=== PATIENT | female | born 1940 | race Caucasian/White ===

== ENCOUNTER → 2017-03-05 09:20 | Outpatient (CLI) | payer MEDICARE, SELFPAY ==
[2017-03-05 15:11] VITALS: BP 135/66; PULSE 64; RESP 16; TEMP 36.1; O2SAT 98; BMI 25.9
--- NOTE | 2017-03-05 15:17 | SDCEKG_ITS ---
Test Reason : Blood Pressure : / mmHG Vent. Rate : 061 BPM Atrial Rate : 061 BPM P-R Int : 202 ms QRS Dur : 096 ms QT Int : 406 ms P-R-T Axes : 040 013 034 degrees QTc Int : 408 ms Normal sinus rhythm with sinus arrhythmia Normal ECG Confirmed by SIDNEY AVALOS, KRIS ([id number]), editorial specialist CAITLIN ZAMBRANO ([id number] on 03/11/2017 3:39:45 PM Referred By: LONNIE Confirmed By:KRIS LITTLE MD
[2017-03-05 15:41] LABS: Hematocrit 37.9 % (37-47); Hemoglobin 12.3 g/dl (12.0-15.0); Mean Corp Hgb Conc 32.5 g/gl (32-36); Mean Corpuscular Hgb 29.7 pg (27.0-32.0); Mean Corpuscular Volume 91.5 fL (81-99); Mean Platelet Vol. 10.6 fl (6.2-12.0); Platelet Count 213 K/mm3 (150-450); RBC Distribution Width CV 14.1 % (11.6-14.6); RBC Distribution Width SD 46.9 fl (35.1-43.9); Red Blood Count 4.14 M/mm3 (4.2-5.4)
[2017-03-05 15:47] LABS: Scan Indicated on CBC? Y/N NO
[2017-03-05 16:13] LABS: International Normalized Ratio 0.9
[2017-03-05 16:14] LABS: Partial Thromboplast Time 27.1 Seconds (24.1-36.2)
[2017-03-05 16:33] LABS: AST(SGOT) 21 U/L (15-37); Alanine Aminotransfer ALT/SGPT 24 U/L (12-78); Albumin, Serum 3.9 g/dL (3.4-5.0); Alkaline Phosphatase 58 U/L (45-117); Anion Gap 6 (5-15); BUN 21 mg/dL (7-18); BUN/Creat Ratio 17.5 RATIO (10-20); Bilirubin, Direct 0.09 mg/dL (0.00-0.30); Calcium,Total 9.1 mg/dL (8.5-10.1); Chloride 102 mmol/L (98-107); EST Glomerular Filtration Rate 46 mL/min (>60); Est Glom Filt Rate - Afr Amer 56 mL/min (>60); Estimated Creatinine Clearance 34.44 ml/min; Globulin 3.6 g/dL (2.2-4.2); Glucose 89 mg/dL (70-110); Potassium 3.9 mmol/L (3.5-5.1); Protein, Total 7.5 g/dL (6.4-8.2); Sodium Level 137 mmol/L (136-145); Thyroid Stim Hormone (TSH) 1.27 uIU/mL (0.358-3.74)
--- OUTSIDE RECORDS SUMMARY | 2017-05-04 09:47 | XMS RPT_ITS ---
:1940 Author Organization OHIP Care Team Providers Name Role Phone KARSTEN SWANSON Referring Unavailable KARSTEN SWANSON Attending Unavailable KIM MEMBRENO ([place]) Attending Unavailable KARSTEN SWANSON Referring Unavailable SEAN SIDDIQUI Admitting Unavailable SEAN SIDDIQUI Attending Unavailable KARSTEN SWANSON Referring Unavailable KARSTEN SWANSON Referring Unavailable KARSTEN SWANSON Referring Unavailable Jean Pierre Martinez Attending Unavailable Juan Swanson Primary Care Unavailable Jean Pierre Martinez Attending Unavailable Jean Pierre Martinez Referring Unavailable Juan Swanson Primary Care Unavailable Ted Patten Admitting Unavailable Ted Patten Attending Unavailable Juan Swanson Primary Care Unavailable Ted Patten Referring Unavailable Chris Hall Attending Unavailable Juan Patteny Referring Unavailable Ted Patetn Attending Unavailable Juan Swanson Primary Care Unavailable PROBLEMS PROBLEMS DATE TYPE CONDITION / CODE ATTENDING STATUS SOURCE 03/26/2017 Unknown Z01.818 - Encounter Jean Pierre Martinez Active [facility] examination / Repository Z01.818(ICD-10) 04/28/2017 Unknown Z01.810 - Encounter Chris Hall [facility] cardiovascular [facility] examination / Repository Z01.810(ICD-10) 11/17/2016 Active Encounter for NA Active [place] screening mammogram [facility] for malignant [place] neoplasm of breast / Repository Z12.31(ICD-10) 08/19/2016 Active Encounter for SEAN SIDDIQUI Active [place] screening for P [facility] malignant neoplasm [place] of colon / Repository Z12.11(ICD-10) 07/31/2016 Active Unknown / TEMI, Active [place] UNK(Medicity KIM ([place]) [facility] Unknown) [place] Repository 07/11/2016 Active Hypothyroidism, NA Active [place] unspecified / Clinic Main E03.9(ICD-10) [place] Repository 07/11/2016 Active Pure NA Active [place] hypercholesterolemia [facility] , unspecified / [place] E78.00(ICD-10) Repository 07/11/2016 Active Essential (primary) NA Active [place] hypertension / Clinic Main I10(ICD-10) [place] Repository PROCEDURES PROCEDURES No Procedure Records FoundRESULTS RESULTS CBC-COMPLETE BLOOD CNT Collected: 03/26/2017 Status: F Source: [place] NO DIFF 3:30 PM [facility] REPOSITORY TYPE CODE TESTS RESULT OUT OF RANGE REFERENCE UNITS LAB L100.1000 Normal 4.4-11.0 K/mm3 WBC 9.6 LAB L100.1200 Low 4.2-5.4 M/mm3 RBC 4.03 LAB L100.1300 Low 12.0-15.0 g/dl HGB 11.9 LAB L100.1400 Low 37-47 % HCT 36.6 LAB L100.1500 Normal 81-99 fL MCV 90.8 LAB L100.1600 Normal 27.0-32.0 pg MCH 29.5 LAB L100.1700 Normal 32-36 g/gl MCHC 32.5 LAB L100.1810 Normal 11.6-14.6 % RDW 13.3 CV LAB L100.1820 High 35.1-43.9 fl RDW 44.6 SD LAB L100.1900 Normal 150-450 K/mm3 PLT 267 LAB L100.2000 Normal 6.2-12.0 fl MPV 10.4 Performed By: #### L100.0500 ####[facility] [address] [place], [address] COMPREHENSIVE METABOLIC Collected: 03/26/2017 Status: F Source: [place] PROFIL 3:30 PM [facility] REPOSITORY TYPE CODE TESTS RESULT OUT OF RANGE REFERENCE UNITS LAB L501.0100 Normal 70-110 mg/dL GLU 86 LAB L501.1000 High 7-18 mg/dL BUN 19 LAB L501.1100 High 0.55-1.02 mg/dL 1.27 CREAT,SERUM Result Comment: The validity of the calculated GFR AND GFRAA in patients over70 years has not been determined. Clinical correlation isessential. LAB L501.1110 Low >60 mL/min EST GFR 43 Result Comment: Non- GFR Calc LAB L501.1115 Low >60 mL/min EST GFR - AA 53 Result Comment: GFR Calc LAB L501.1300 Normal 10-20 RATIO BUN/CRE 15.0 LAB L501.1500 Normal 6.4-8.2 g/dL T PROT 7.7 LAB L501.1800 Normal 3.4-5.0 g/dL ALB 3.7 Result Comment: Please note revised Albumin AND Globulin reference rangeeffective 2016. LAB L501.1950 Normal 2.2-4.2 g/dL GLOB 4.0 LAB L501.2000 Normal 0.9-2.4 RATIO A/G 0.9 LAB L501.2200 Normal 8.5-10.1 mg/dL CA 9.8 LAB L501.4100 Normal 15-37 U/L AST 24 LAB L501.4305 Normal 45-117 U/L ALK P 60 LAB L501.4405 Normal 12-78 U/L ALT 22 LAB L501.4600 Normal 0.20-1.00 mg/dL T BILI 0.60 LAB L501.5300 Low 136-145 mmol/L NA 135 LAB L501.5600 Normal 3.5-5.1 mmol/L K 3.8 LAB L501.5900 Low 98-107 mmol/L CL 96 LAB L501.6100 Normal 21.0-32.0 mmol/L CO2 31.0 LAB L501.6200 Normal 5-15 GAP 8 Performed By: #### L500.4050 ####[facility] [address] [place], [address] Observed: 03/26/2017 Status: F Source: [place] MRSA/SAID SCREEN 3:30 PM [facility] REPOSITORY MRSA/SAID SCRNS. AUREUS S. aureus NegativeMRSA MRSA Negative Performed By: #### M100.651 ####[facility] [address] [place], [address] 12 LEAD ELECTROCARDIOGRAM Observed: 03/11/2017 Status: F Source: [place] 3:39 PM [facility] REPOSITORY [facility] [address] [place], [place] [address]SYF - SDC12/ 1513MR#: [id number] Acct: [id number]: LUCERO PAL Rep #: [id number]: [birth year] From: Chris Hall MDAttending Dr: Ted Patten DO Status: PRE INOrdering Dr: Ted Patten DO Date: 03/05/17Location: [facility] Sex: F CAdmitted:Test Reason :Blood Pressure : / mmHGVent. Rate : 061 BPM Atrial Rate : 061 BPMP- R Int : 202 ms QRS Dur : 096 msQT Int : 406 ms P-R-T Axes : 040 013 034 degreesQTc Int : 408 msNormal sinus rhythm with sinus arrhythmiaNormal ECGConfirmed by CHRIS HALL MD ([id number]), dictionary editor CAITLIN ZAMBRANO ([id number]) on 03/11/2017 3:39:45 PMReferred By: SANDOR Confirmed By:CHRIS HALL MD03/11/17 1539Date Chris Hall MDCC: Juan Swanson MD Date Dictated: 03/05/17 1513Date Transcribed: 03/05/171512Transcriptionist:Signed CBC-COMPLETE BLOOD CNT Collected: 03/05/2017 Status: F Source: [place] NO DIFF 3:25 PM [facility] REPOSITORY TYPE CODE TESTS RESULT OUT OF RANGE REFERENCE UNITS LAB L100.1000 Normal 4.4-11.0 K/mm3 WBC 6.0 LAB L100.1200 Low 4.2-5.4 M/mm3 RBC 4.14 LAB L100.1300 Normal 12.0-15.0 g/dl HGB 12.3 LAB L100.1400 Normal 37-47 % HCT 37.9 LAB L100.1500 Normal 81-99 fL MCV 91.5 LAB L100.1600 Normal 27.0-32.0 pg MCH 29.7 LAB L100.1700 Normal 32-36 g/gl MCHC 32.5 LAB L100.1810 Normal 11.6-14.6 % RDW 14.1 CV LAB L100.1820 High 35.1-43.9 fl RDW 46.9 SD LAB L100.1900 Normal 150-450 K/mm3 PLT 213 LAB L100.2000 Normal 6.2-12.0 fl MPV 10.6 Performed By: #### L100.0500 ####[facility] [address] [facility], [place], [id number] PROTHROMBIN TIME W/INR Collected: 03/05/2017 Status: F Source: MAT[place]WS 3:25 PM [facility] REPOSITORY TYPE CODE TESTS RESULT OUT OF RANGE REFERENCE UNITS LAB L300.4150 Normal 11.7-14.9 SECONDS PROTIME 12.0 LAB L300.4200 Normal INR 0.9 Performed By: #### L300.3900, L300.4310 ####[facility] [address] [facility], [place], [id number] PARTIAL THROMBOPLAST Collected: 03/05/2017 Status: F Source: [place] TIME 3:25 PM [facility] REPOSITORY TYPE CODE TESTS RESULT OUT OF RANGE REFERENCE UNITS LAB L300.4310 Normal 24.1-36.2 Seconds PTT 27.1 Performed By: #### L300.3900, L300.4310 ####[facility] [address] [facility], [place], [id number] BASIC METABOLIC Collected: 03/05/2017 Status: F Source: [place] PROFILE (BMP) 3:25 PM [facility] REPOSITORY TYPE CODE TESTS RESULT OUT OF RANGE REFERENCE UNITS LAB L501.0100 Normal 70-110 mg/dL GLU 89 LAB L501.1000 High 7-18 mg/dL BUN 21 LAB L501.1100 High 0.55-1.02 mg/dL 1.20 CREAT,SERUM Result Comment: The validity of the calculated GFR AND GFRAA in patients over70 years has not been determined. Clinical correlation isessential. LAB L501.1110 Low >60 mL/min EST GFR 46 Result Comment: Non- GFR Calc LAB L501.1115 Low >60 mL/min EST GFR - AA 56 Result Comment: GFR Calc LAB L501.1255 Normal ml/min Estimated 34.44 CRCL LAB L501.1300 Normal 10-20 RATIO BUN/CRE 17.5 LAB L501.2200 Normal 8.5-10 mg/dL CA 9.1 .1 LAB L501.5300 Normal 136-14 mmol/L NA 137 5 LAB L501.5600 Normal 3.5-5. mmol/L K 3.9 1 LAB L501.5900 Normal 98-107 mmol/L CL 102 LAB L501.6100 Normal 21.0-3 mmol/L CO2 29.0 2.0 LAB L501.6200 Normal 5-15 GAP 6 Performed By: #### L500.2500, L500.3400, L501.9520 ####[facility] [address], [place], [phone] LIVER PROFILE Collected: 03/05/2017 Status: F Source: MAT[place]WS 3:25 PM [facility] REPOSITORY TYPE CODE TESTS RESULT OUT OF RANGE REFERENCE UNITS LAB L501.1500 Normal 6.4-8.2 g/dL T 7.5 PROT LAB L501.1800 Normal 3.4-5.0 g/dL ALB 3.9 Result Comment: Please note revised Albumin AND Globulin reference rangeeffective 2016. LAB L501.1950 Normal 2.2-4.2 g/dL GLOB 3.6 LAB L501.4100 Normal 15-37 U/L AST 21 LAB L501.4305 Normal 45-117 U/L ALK P 58 LAB L501.4405 Normal 12-78 U/L ALT 24 LAB L501.4600 Normal 0.20-1.00 mg/dL T BILI 0.20 LAB L501.4700 Normal 0.00-0.30 mg/dL D BILI 0.09 Performed By: #### L500.2500, L500.3400, L501.9520 ####[facility] [address] [place], [address] THYROID STIM HORMONE Collected: 03/05/2017 Status: F Source: [place] (TSH) 3:25 PM [facility] REPOSITORY TYPE CODE TESTS RESULT OUT OF RANGE REFERENCE UNITS LAB L501.9520 Normal 0.358-3.74 uIU/mL TSH 1.27 Performed By: #### L500.2500, L500.3400, L501.9520 ####[facility] [address] [place], [address] Observed: 03/05/2017 Status: F Source: [place] MRSA/SAID SCREEN 3:25 PM [facility] REPOSITORY MRSA/SAID SCRNS. AUREUS S. aureus NegativeMRSA MRSA Negative Performed By: #### M100.651 ####[facility] [address] [place], [address] CNCO Observed: 11/17/2016 Status: COMPLETED Source: [place] 2:20 PM [facility] REPOSITORY HNO ID: [id number]: Mammography CoordinatorService: (none)Author Type: PhysicianType: LetterFiled: 11/18/2016 11:32 PMNote Text: November 17, 2016 PID: [id number] [place], [place] [address]Xbyp Kae,We are pleased to inform you that the results of your recent breastimaging exam on 11/17/2016 are normal.Your mammogram demonstrates that you have dense breast tissue, which couldhide abnormalities. Dense breast tissue, in and of itself, is arelatively common condition. Therefore, this information is not providedto cause undue concern; rather, it is to raise your awareness and promotediscussion with your health care provider regarding the presence of densebreast tissue in addition to other risk factors. Early detection ofcancer is very important. We also understand recommendations regardingbreast cancer screening are controversial. Please discuss with yourprimary care provider which strategy is best for you and whether amammogram is right for you.Your imaging studies and report will [facility] and are available for yourcontinuing care.Thank you for allowing us to help in meeting your health care needs.Sincerely,Dr. RojoInterpreting RadiologistWLa Palma Intercommunity [facility] (Normal over 40) T[place]NER DIG SCREEN CAD Observed: 11/17/2016 Status: F Source: [facility] 2:10 PM [facility] REPOSITORY * * *Final Report* * *DATE OF EXAM: Nov 17 2016 2:10PM WOW [id number] - [facility] DIG SCREEN CAD SANDEEP - BILATERAL / REASON: Encounter for screening mammogram for malignant neoplasm of breast * * * * Physician Interpretation * * * *RESULT: #[id number] - [facility] DIG SCREEN CAD BILBILATERAL DIGITAL SCREENING MAMMOGRAM WITH CAD: 11/17/2016HISTORY: /Screening Mammogram - patient reports NO breast symptoms /Priors available for comparison.RESULT:TECHNIQUE: The study was acquired using full field digital technology and interpreted from soft copy.Current study was also evaluated with a Computer Aided Detection (CAD).Comparison is made to exams dated: 05/04/2015 mammogram - [facility], 01/23/2014 mammogram, 01/21/2013 mammogram - [facility], and 01/21/2012 mammogram - [facility].The tissue of both breasts is heterogeneously dense. This may lower the sensitivity of mammography.No significant masses, calcifications, or other findings are seen in either breast.There has been no significant interval change.IMPRESSION: NEGATIVEThere is no mammographic evidence of malignancy.A 1 year screening mammogram is recommended.Abeba Rojo M.D.cp/alexandru:11/17/2016 14:20:56Imaging Technologist: Mary Kay CARR)(M), [facility]: Normal over 40Mammogram BI-RADS: 1 NegativeTranscriptionist: AlexandruTranscribemmanuelle Date/Time: Nov 17 2016 1:55PDictated by: ABEBA ROJO MDThis examination was interpreted and the report reviewed and electronically signed by: ABEBA ROJO MD on Nov 17 2016 2:20PM EST PROGRESS Observed: 11/17/2016 Status: COMPLETED Source: [place] 2:08 PM [facility] REPOSITORY HNO ID: [id number]: Mary Kay Bradley (Ct), CTService: (none)Author Type: Clinical TechnicianType: Progress NotesFiled: 11/17/2016 2: 09 PMNote Text: Radiology Service Progress NotePATIENT NAME: Lucero PalMRN: [id number] OF SERVICE: November 17, 2016TIME: 2:08 PMPATIENT IDENTITY VERIFICATION COMPLETED USING TWO (2) METHODS: Patientconfirmed name verbally and Date of .PATIENT GENDER DATA: Female. status: : NoBreastfeeding status: NO.PATIENT RELEVANT IMPLANT DATA REVIEWED: Not ApplicableRADIOLOGY DEPARTMENT: [facility] IV DATA: Not applicableSIGNED BY: MARY KAY BRADLEY, RTSept2016 2:08 PM COMP METABOLIC PANEL Collected: 10/21/2016 Status: F Source: [place] 8:17 AM [facility] REPOSITORY TYPE CODE TESTS RESULT OUT OF REFERENCE UNITS RANGE LAB TP 6.3-8.0 g/dL Protein, Total 6.7 LAB ALB 3.9-4.9 g/dL Albumin 4.3 LAB CA 8.5-10.2 mg/dL Calcium, Total 9.4 LAB TBIL 0.2-1.3 mg/dL Bilirubin, 0.3 Total LAB ALKP 32-117 U/L Alkaline 48 Phosphatase LAB AST 13-35 U/L AST 24 LAB GLU 74-99 mg/dL Glucose 91 Result Comment: The [place] Diabetes Association (ADA) provides guidance for cutoff values for fasting glucose and random glucose. The ADA defines fasting as no caloric intake for at least 8 hours. Fasting plasma glucose results between 100 to 125 mg/dL indicate increased risk for diabetes (prediabetes).Fasting plasma glucose results greater than or equal to 126 mg/dL meet the criteria for diagnosis of diabetes. In the absence of unequivocal hyperglycemia, results should be confirmed by repeat testing. In a patient with classic symptoms of hyperglycemia or hyperglycemic crisis, random plasma glucose results greater than or equal to 200 mg/dL meet the criteria for diagnosis of diabetes.Reference: Standards of Medical Care in Diabetes 2016 , [place] [employer] Association. Diabetes Care. 2016.39(Suppl 1). LAB BUN High 7-21 mg/dL BUN 22 LAB CRET High 0.58-0.96 mg/dL Creatinine 1.18 LAB NA 136-144 mmol/L Sodium 140 LAB K 3.7-5.1 mmol/L Potassium 4.2 LAB CL 97-105 mmol/L Chloride 103 LAB CO2 22-30 mmol/L CO2 25 LAB AGAP 9-18 mmol/L Anion Gap 12 LAB ALT 7-38 U/L ALT 14 LAB GFRAA eGFR- Amer. 54 LAB GFRNAA . eGFR-All Other Races 45 Result Comment: eGFR (Estimated GFR) Units of measure: mL/min/1.73 meters squaredeGFR is derived from the reexpressed MDRD Study equation using the following parameters: serum creatinine, age, gender and race. The creatinine assay has been calibrated to be traceable to IDMS.An eGFR <60 mL/min/1.73m2 for >3 months is consistent with chronic kidney disease. Refer to KDOQI guidelines for clinical interpretation.In patients with unstable renal function, e.g. those with acute kidney injury, the eGFR may not accurately reflect actual GFR. Performed By: #### CMP, LIPB, TSH ####[facility], [place] [phone] LIPID PANEL, BASIC Collected: 10/21/2016 Status: F Source: [place] 8:17 AM [facility] REPOSITORY TYPE CODE TESTS RESULT OUT OF REFERENCE UNITS RANGE LAB TRIGLY 30-149 mg/dL Triglyceride 75 LAB CHOL High 100-199 mg/dL Cholesterol 218 LAB HDL >55 mg/dL HDL-Cholesterol 62 LAB VLDL 6-40 mg/dL VLDL Cholesterol 15 LAB LDL High 60-129 mg/dL LDL-Cholesterol 141 LAB FT hrs Fasting Time 12 LAB TCHDL 1.00-5.00 TC:HDL Ratio 3.52 LAB LDLHDL 0.50-3.55 LDL:HDL Ratio 2.27 LAB NONHDL 90-159 mg/dL Non HDL 156 Cholesterol Performed By: #### CMP, LIPB, TSH ####[facility], [place] [phone] TSH Collected: 10/21/2016 Status: F Source: [place] 8:17 AM [facility] REPOSITORY TYPE CODE TESTS RESULT OUT OF RANGE REFERENCE UNITS LAB TSH 0.400-5.500 uU/mL TSH 0.427 Performed By: #### CMP, LIPB, TSH ####[facility] [address] [place], [place] [phone] NURSING PROG Observed: 08/19/2016 Status: COMPLETED Source: [place] 3:10 PM [facility] REPOSITORY HNO ID: [id number]: Bianca Whitfield) Tracey Joseice: (none)Author Type: Registered NurseType: Nursing Progress NoteFiled: 08/19/2016 3:10 PMNote Text:Patient did not experience a fall prior to discharge.Patient did not experience a burn prior to discharge.Bianca Jose RN NURSING PROG Observed: 08/19/2016 Status: COMPLETED Source: [place] 3:05 PM [facility] REPOSITORY HNO ID: [id number]: Bianca Whitfield) Tracey Joseice: (none)Author Type: Registered NurseType: Nursing Progress NoteFiled: 08/19/2016 3:06 PMNote Text:Dr. Siddiqui visits with patient and family.Bianca Jose RN NURSING PROG Observed: 08/19/2016 Status: COMPLETED Source: [place] 2:53 PM [facility] REPOSITORY HNO ID: [id number]: Bianca Whitfield) Tracey Joseice: (none)Author Type: Registered NurseType: Nursing Progress NoteFiled: 08/19/2016 3:01 PMNote Text:Dressing at bedside with family present. PT ED Observed: 08/19/2016 Status: COMPLETED Source: [place] 2:49 PM [facility] REPOSITORY HNO ID: [id number]: Bianca Whitfield) Tracey Joseice: (none)Author Type: Registered NurseType: Patient EducationFiled: 08/19/2016 2: 49 PMNote Text:AMBULATORY PATIENT EDUCATIONTOPIC: Survival Skills: GI PROCEDURES: ColonoscopyREADINESS TO LEARNCOGNITIVE ABILITY: Alert and orientedMOTIVATION TO LEARN: EagerFAMILY SUPPORT: High - Very involved in pt careINSTRUCTION PROVIDED TO: Patient and family memberPATIENT LEARNS BEST BY: Multiple MethodsFACTORS AFFECTING LEARNING: NonePHYSICAL LIMITATIONS AFFECTING LEARNING: NoneLEARNING RESPONSEDIAGNOSIS: screeningMETHOD OF INSTRUCTION: Individual instructionWritten instruction - handoutsVerbal instructionPATIENT / FAMILY RESPONSE: Verbalizes understanding of: YAOC-RXBWRWHHAMBUWHPWGOEET-Nokoikt actions to take to reduce post procedurecomplicationsSYMPTOM MANAGEMENT-Correct actions to take to manage symptoms associatedwith his/her disease/illnessWORSENING CONDITION-Signs and symptoms of a worsening condition thatwarrant a call to the physicianFOLLOW-UP PLAN: Follow up phone call.SUPPLEMENTAL MATERIAL: Procedure discharge instructionsPatient's medication list and discharge instructions were reviewed withand given to patient and/or caregiver. Patient and/or caregiver given theopportunity to ask questions and verbalized their understanding ofcontent.REFERRAL (RECOMMENDATION): NoneElectronically Signed By: Bianca Jose RN In Department: AMBULATORYSURGERY NURSING PROG Observed: 08/19/2016 Status: COMPLETED Source: [place] 2:46 PM [facility] REPOSITORY HNO ID: [id number]: Marguerite Swenson Rn: (none)Author Type: Registered NurseType: Nursing Progress NoteFiled: 08/19/2016 2:47 PMNote Text:Sitting upright in bed with HOB elevated. Denies nausea. Deniesabdominal pain. Continues with snack and fluids without difficulty.Family at bedside. NURSING PROG Observed: 08/19/2016 Status: COMPLETED Source: [place] 2:36 PM [facility] REPOSITORY HNO ID: [id number]: Marguerite Swenson Rn: (none)Author Type: Registered NurseType: Nursing Progress NoteFiled: 08/19/2016 2:38 PMNote Text: Rolled to back, HOB elevated. Denies nausea. Denies abdominal pain.Taking snack and fluids without difficulty. NURSING PROG Observed: 08/19/2016 Status: COMPLETED Source: [place] 2:26 PM [facility] REPOSITORY HNO ID: [id number]: Bianca Whitfield) Marguerite Jose: (none)Author Type: Registered NurseType: Nursing Progress NoteFiled: 08/19/2016 2:32 PMNote Text:In bed resting on left side. Respirations easy and even. Becoming moreawake per self. Denies nausea. Denies abdominal pain. NURSING PROG Observed: 08/19/2016 Status: COMPLETED Source: [place] 2:16 PM [facility] REPOSITORY HNO ID: [id number]: Bianca (Rn) JOSEPH Joseervice: (none)Author Type: Registered NurseType: Nursing Progress NoteFiled: 08/19/2016 2:25 PMNote Text:Received from OR on left side. Respirations easy and even. Sleepy,arouses to verbal stimuli. Denies nausea. Denies abdominal pain.Abdomen soft, non distended. NURSING PROG Observed: 08/19/2016 Status: COMPLETED Source: [place] 2:12 PM [facility] REPOSITORY HNO ID: [id number]: Cyndy Torrez (Rn) JOSEPH Valenzuelaervice : (none)Author Type: Registered NurseType: Nursing Progress NoteFiled: 08/19/2016 2:12 PMNote Text:Patient did not experience a fall within the Intraoperative area.Patient did not experience a burn within the Intraoperative area.Cyndy Valenzuela RN NURSING PROG Observed: 08/19/2016 Status: COMPLETED Source: [place] 1:59 PM [facility] REPOSITORY HNO ID: [id number]: Pau (Rn) JOSEPH Tonyervice: NursingAuthor Type: Registered NurseType: Nursing Progress NoteFiled: 2016 1:59 PMNote Text:[facility] PRE-OP NURSING HAND OFF NOTESBAR Hand off given to Cyndy Valenzuela RN.Hand off was communicated verbally and at the patient's bedside and allquestions were answered. FALLS/BURNSPatient did not experience a fall within the Preoperative area.Patient did not experience a burn within the Preoperative area.Pau Tony RN HISTORY PHYSICAL Observed: 08/01/2016 Status: COMPLETED Source: [place] 4:01 PM [facility] REPOSITORY HNO ID: [id number]: Kim Burgos (Pa): (none)Author Type: Physician AssistantType: HANDPFiled: 08/01/2016 4:01 PMNote Text:HISTORY AND PHYSICALShmanda Bullard Kae1941REFERRBRADEN PHYSICIAN: Karsten Swanson [facility]ITALAZ[facility] COMPLAINT: ConsultHPI: The patient is a 75 year old female referred for endoscopy. Luceronotes the following GI complaints: Lucero denies abdominal pain..Lucero denies diarrhea. Lucero notes occasional constipation. Lucerodenies a change in bowel habits. Lucero denies melena. Lucero notesoccasional bright red blood per rectum. Lucero notes hemorrhoids.The patient notes no history of upper GI complaints.Lucero has undergone prior end[place] [address] Hager. Entire colonwas normal. No family history of colon cancer.Patient denies cardiac history and pulmonary history.The patient is being seen by me today at the request of Dr. Kenneth MD for my opinion and advice regarding screening colonoscopy.PAST MEDICAL HISTORYDiagnosis Date- Diverticulosis of colon ( without mention of hemorrhage)- Mixed hyperlipidemia- Unspecified constipation- Unspecified hypothyroidismPAST SURGICAL HISTORYNo date: DELIVERY ONLY Comment: , low yfwgkpen72/8/05: COLONOSCOP W/ OR W/O [facility] SPEC Comment: ColonoscopyNo date: LIGATE FALLOPIAN TUBE Comment: Tubal ligationNo date: REMV CATARACT EXTRACAP,INSERT LENS Comment: Cataract RemovalCurrent Outpatient Prescriptions:krill oil 500 mg cap Take by mouth once daily.levothyroxine (SYNTHROID) 100 mcg tablet Take 1 tablet by mouth dailybefore breakfast.ezetimibe (ZETIA) 10 mg tablet Take 1 tablet by mouth once daily.ramipril (ALTACE) 10 mg capsule Take 1 capsule by mouth twice daily.metoprolol succinate ER (TOPROL XL ) 50 mg 24 hr tablet Take 1 tablet bymouth once daily.Cholecalciferol, Vitamin D3, 1, 000 unit cap Take 1 capsule by mouth oncedaily.Clobetasol Propionate (CLOBEX) 0.05 % TOPICAL Sham Apply to affectedarea.Nykjbggixnn-Ifpgasadu-Xcn C-Mn (GLUCOSAMINE CHONDROITIN MAXSTR) 500-400 mgORAL Cap Take one(1) capsules three(3) times daily..COMPOUNDED PRESCRIPTION vinpocetine 10 mg - 1 dailyPolyethylene Glycol 3350 (MIRALAX) 17 gram/dose ORAL powder Drink a mix of1 scoop in 8 oz of water once daily as needed for constipationCalcium Carb-Mag Hydrox-Simeth (ROLAIDS MULTI-SYMPTOM) 675-135-60 mg ORALChew take 2 tabs as neededFluocinolone-Shower Cap (DERMA-SMOOTHE/FS SCALP OIL) 0.01 % TOPICAL Oiluse as directedMULTIPLE VITAMIN ORAL TAB Take one(1) tablet daily.CALCIUM 600 + D(3) 600 MG-200 UNIT ORAL TAB Take one(1) tablet two(2) times daily.MELATONIN 3 MG ORAL TAB HALF TAB DAILYNo current facility-administered medications for this visit.ALLERGIES: Adhesive; Grifulvin V [Griseofulvin Microsize]; Niaspan[Niacin]; Dnojmxq-Gwe-Wep Reductase InhibitorsPERSONAL HISTORY: Social History Marital status: Spouse name: Years of education: Number of children:Social History Main Topics Smoking status: Never Smoker Alcohol use: No Drug use: No Sexual activity: Yes Partners with: MaleFAMILY HISTORY:FAMILY HISTORY Cancer Mother Comment: CERVICAL Hypertension Mother Hypertension Father Diabetes FatherREVIEW OF SYMPTOMS: The review of systems data was entered by the nurse and reviewed by Adelina Notes:Lizett Pradhan Ma 12:58 PM SignedREVIEW OF SYSTEMS: General: The patient denies fatigue, denies weight loss, deniesweight gain, denies feeling hot, and denies feelings of cold. Eyes: The patient denies glaucoma, denies eye injury/surgery, doesnot wear glasses or contacts. Ear/Nose/Throat: The patient denies allergies, denies hayfever,denies ear infections, and denies bloody noses. Cardiovascular: The patient denies chest pain, denies heart disease,NOTES high blood pressure, denies cardiac stent, denies prior heart attack,denies irregular heart beat, NOTES high cholesterol, denies poorcirculation, denies heart failure, NOTES cardiac issues, deniesclaudication, denies cold feet, denies peripheral arterial stent. Respiratory: The patient denies tuberculosis, denies pneumonia,denies frequent cough, denies pulmonary embolism, denies shortness ofbreath, and denies coughing up blood. Gastrointestinal: The patient denies difficulty swallowing, deniesacid reflux, denies ulcers, denies vomiting, denies jaundice/hepatitis,denies gallbladder problems, denies black or tarry stools, NOTEShemorrhoids, NOTES bleeding from rectum, NOTES diverticulitis, NOTESconstipation, denies diarrhea, denies loss of stool control, and denieshernias. Kidney/Bladder: The patient denies kidney stones, denies urineinfections, and denies bloody urine. Skin: The patient denies a history of skin cancer, deniesbleeding/changing moles, and denies a history of skin rash. Neurologic: The patient denies a history of epilepsy/convulsions, denies headaches, denies head/spinal injuries, and denies stroke/TIA. Psychiatric : The patient denies psychiatric medications, deniesdepression, and denies voices, denies substance abuse. Endocrine: The patient NOTES thyroid disorders, denies diabetes, anddenies hormonal problems. Hematologic: The patient denies a history of bruising, deniesbleeding, and denies anemia, denies blood clots. Infections: The patient NOTES a history of measles and mumps, deniesrheumatic fever, and denies sexually transmitted diseases. Musculoskeletal: The patient denies back pain/injury, denies backproblems, denies sciatica, NOTES knee/foot trouble, NOTES arthritis, ordenies gout.When was patient's last Mammogram screening? 2016 Last Colonoscopy: 2004RaARYAN Cid Ma-CPHYSICAL EXAMINATION:General: The patient is 75 year old female, well nourished, well hydratedin no acute distress. The patient is oriented to time, place, and person.VITALS: Blood pressure 116/78, pulse 76, height 165.1 cm (5' 5), vxkomi09 kg (150 lb). Body mass index is 24.96 kg/(m2).HEENT: Normal cephalic, ataumatic, pupils are equally round, sclera areanicteric, mucous membranes are moist, oropharynx is clear. Neck has nomasses, asymmetry or lymphadenopathy. Thyroid is unremarkable.Respiratory: Clear to auscultation and percussion. Normal respiratoryexcursion and pattern.Cardiac: Examination is regular rate and rhythm.Abdominal exam: Soft, nontender, with no palpable masses. Nohepatosplenomegaly. No palpable hernias.Rectal exam: exam deferredExtremities: no clubbing, cyanosis or edema. No adenopathy.IMPRESSION: Screening colonoscopy. Occasional rectal bleeding andconstipationPLAN: Dr. Siddiqui will plan to perform lower endoscopy. We discussedthe risks and benefits of the planned endoscopy. I have informed thepatient that complications can occur including failure to complete theendoscopy and perforation. The patient had the opportunity to askquestions concerning the planned endoscopy. My staff has also explainedthe procedure to the patient in understandable terms and has given thepatient printed material concerning the procedure. The patient freelyconsents to surgery.I plan to use golytely bowel preparation for endoscopyMy findings have been communicated to Dr. Karsten Swanson MD via sharedmedical record. This note will be forwarded to Dr. Karsten Swanson MD.Diagnoses: (Z12.11) Encounter for screening colonoscopy (primaryencounter diagnosis)Return to Clinic: The patient is instructed to follow-up with me asneeded. Kim Membreno PA-C PROGRESS Observed: 08/01/2016 Status: COMPLETED Source: [place] 3:57 PM [facility] REPOSITORY HNO ID: [id number]: Kim Taylor) TemiService: (none)Author Type: Physician AssistantType: Progress NotesFiled: 08/01/2016 4: 01 PMNote Text:HISTORY AND PHYSICALLucero [facility]1REFERRING PHYSICIAN: Karsten Swanson, [facility] COMPLAINT: ConsultHPI: The patient is a 75 year old female referred for endoscopy. Luceronotes the following GI complaints: Lucero denies abdominal pain..Lucero denies diarrhea. Lucero notes occasional constipation. Lucerodenies a change in bowel habits. Lucero denies melena. Lucero notesoccasional bright red blood per rectum. Lucero notes hemorrhoids.The patient notes no history of upper GI complaints.Lucero has undergone prior end[place] [address] Hager. Entire colonwas normal. No family history of colon cancer.Patient denies cardiac history and pulmonary history.The patient is being seen by me today at the request of Dr. Kenneth MD for my opinion and advice regarding screening colonoscopy.PAST MEDICAL HISTORYDiagnosis Date- Diverticulosis of colon ( without mention of hemorrhage)- Mixed hyperlipidemia- Unspecified constipation- Unspecified hypothyroidismPAST SURGICAL HISTORYNo date: DELIVERY ONLY Comment: , low /8/05: COLONOSCOP W/ OR W/O [facility] SPEC Comment: ColonoscopyNo date: LIGATE FALLOPIAN TUBE Comment: Tubal ligationNo date: REMV CATARACT EXTRACAP,INSERT LENS Comment: Cataract RemovalCurrent Outpatient Prescriptions:krill oil 500 mg cap Take by mouth once daily.levothyroxine (SYNTHROID) 100 mcg tablet Take 1 tablet by mouth dailybefore breakfast.ezetimibe (ZETIA) 10 mg tablet Take 1 tablet by mouth once daily.ramipril (ALTACE) 10 mg capsule Take 1 capsule by mouth twice daily.metoprolol succinate ER (TOPROL XL ) 50 mg 24 hr tablet Take 1 tablet bymouth once daily.Cholecalciferol, Vitamin D3, 1, 000 unit cap Take 1 capsule by mouth oncedaily.Clobetasol Propionate (CLOBEX) 0.05 % TOPICAL Sham Apply to affectedarea.Zaddthbozsm-Xtzptabdh-Zqm C-Mn (GLUCOSAMINE CHONDROITIN MAXSTR) 500-400 mgORAL Cap Take one(1) capsules three(3) times daily..COMPOUNDED PRESCRIPTION vinpocetine 10 mg - 1 dailyPolyethylene Glycol 3350 (MIRALAX) 17 gram/dose ORAL powder Drink a mix of1 scoop in 8 oz of water once daily as needed for constipationCalcium Carb-Mag Hydrox-Simeth (ROLAIDS MULTI-SYMPTOM) 675-135-60 mg ORALChew take 2 tabs as neededFluocinolone-Shower Cap (DERMA-SMOOTHE/FS SCALP OIL) 0.01 % TOPICAL Oiluse as directedMULTIPLE VITAMIN ORAL TAB Take one(1) tablet daily.CALCIUM 600 + D(3) 600 MG-200 UNIT ORAL TAB Take one(1) tablet two(2) times daily.MELATONIN 3 MG ORAL TAB HALF TAB DAILYNo current facility-administered medications for this visit.ALLERGIES: Adhesive; Grifulvin V [Griseofulvin Microsize]; Niaspan[Niacin]; Yooblee-Zed-Eso Reductase InhibitorsPERSONAL HISTORY: Social History Marital status: Spouse name: Years of education: Number of children:Social History Main Topics Smoking status: Never Smoker Alcohol use: No Drug use: No Sexual activity: Yes Partners with: MaleFAMILY HISTORY:FAMILY HISTORY Cancer Mother Comment: CERVICAL Hypertension Mother Hypertension Father Diabetes FatherREVIEW OF SYMPTOMS: The review of systems data was entered by the nurse and reviewed by Adelina Notes:Lizett Pradhan Ma 12:58 PM SignedREVIEW OF SYSTEMS: General: The patient denies fatigue, denies weight loss, deniesweight gain, denies feeling hot, and denies feelings of cold. Eyes: The patient denies glaucoma, denies eye injury/surgery, doesnot wear glasses or contacts. Ear/Nose/Throat: The patient denies allergies, denies hayfever,denies ear infections, and denies bloody noses. Cardiovascular: The patient denies chest pain, denies heart disease,NOTES high blood pressure, denies cardiac stent, denies prior heart attack,denies irregular heart beat, NOTES high cholesterol, denies poorcirculation, denies heart failure, NOTES cardiac issues, deniesclaudication, denies cold feet, denies peripheral arterial stent. Respiratory: The patient denies tuberculosis, denies pneumonia,denies frequent cough, denies pulmonary embolism, denies shortness ofbreath, and denies coughing up blood. Gastrointestinal: The patient denies difficulty swallowing, deniesacid reflux, denies ulcers, denies vomiting, denies jaundice/hepatitis,denies gallbladder problems, denies black or tarry stools, NOTEShemorrhoids, NOTES bleeding from rectum, NOTES diverticulitis, NOTESconstipation, denies diarrhea, denies loss of stool control, and denieshernias. Kidney/Bladder: The patient denies kidney stones, denies urineinfections, and denies bloody urine. Skin: The patient denies a history of skin cancer, deniesbleeding/changing moles, and denies a history of skin rash. Neurologic: The patient denies a history of epilepsy/convulsions, denies headaches, denies head/spinal injuries, and denies stroke/TIA. Psychiatric : The patient denies psychiatric medications, deniesdepression, and denies voices, denies substance abuse. Endocrine: The patient NOTES thyroid disorders, denies diabetes, anddenies hormonal problems. Hematologic: The patient denies a history of bruising, deniesbleeding, and denies anemia, denies blood clots. Infections: The patient NOTES a history of measles and mumps, deniesrheumatic fever, and denies sexually transmitted diseases. Musculoskeletal: The patient denies back pain/injury, denies backproblems, denies sciatica, NOTES knee/foot trouble, NOTES arthritis, ordenies gout.When was patient's last Mammogram screening? 2016 Last Colonoscopy: 2004Rachel Sara Lorne JEANNIE BellCPHYSICAL EXAMINATION:General: The patient is 75 year old female, well nourished, well hydratedin no acute distress. The patient is oriented to time, place, and person.VITALS: Blood pressure 116/78, pulse 76, height 165.1 cm (5' 5), wfqomb20 kg (150 lb). Body mass index is 24.96 kg/(m2).HEENT: Normal cephalic, ataumatic, pupils are equally round, sclera areanicteric, mucous membranes are moist, oropharynx is clear. Neck has nomasses, asymmetry or lymphadenopathy. Thyroid is unremarkable.Respiratory: Clear to auscultation and percussion. Normal respiratoryexcursion and pattern.Cardiac: Examination is regular rate and rhythm.Abdominal exam: Soft, nontender, with no palpable masses. Nohepatosplenomegaly. No palpable hernias.Rectal exam: exam deferredExtremities: no clubbing, cyanosis or edema. No adenopathy.IMPRESSION: Screening colonoscopy. Occasional rectal bleeding andconstipationPLAN: Dr. Siddiqui will plan to perform lower endoscopy. We discussedthe risks and benefits of the planned endoscopy. I have informed thepatient that complications can occur including failure to complete theendoscopy and perforation. The patient had the opportunity to askquestions concerning the planned endoscopy. My staff has also explainedthe procedure to the patient in understandable terms and has given thepatient printed material concerning the procedure. The patient freelyconsents to surgery.I plan to use golytely bowel preparation for endoscopyMy findings have been communicated to Dr. Karsten Swanson MD via sharedmedical record. This note will be forwarded to Dr. Karsten Swanson MD.Diagnoses: (Z12.11) Encounter for screening colonoscopy (primaryencounter diagnosis)Return to Clinic: The patient is instructed to follow-up with me asneeded. Kim Membreno PA-C CNOV Observed: 07/31/2016 Status: COMPLETED Source: [place] 1:00 PM [facility] REPOSITORY Office Visit (GENSWS) ---------LUCERO PAL ([id number]) 1940 FDate Time Provider Department07/31/16 1:00 PM KIM MEMBRENO) GENSWS During your visit today, we recorded the following information about you: Pulse Blood pressure Weight Height 76/minute 116/78 68 kg 1.651 Sage Pradhan Ma 07/31/2016 12:58 PM SignedREVIEW OF SYSTEMS: General: The patient denies fatigue, denies weight loss, denies weightgain, denies feeling hot, and denies feelings of cold. Eyes: The patient denies glaucoma, denies eye injury/surgery, does notwear glasses or contacts. Ear/Nose/Throat: The patient denies allergies, denies hayfever, deniesear infections, and denies bloody noses. Cardiovascular: The patient denies chest pain, denies heart disease,NOTES high blood pressure,denies cardiac stent, denies prior heart attack,denies irregular heart beat, NOTES high cholesterol, denies poor circulation,denies heart failure, NOTES cardiac issues, denies claudication, denies coldfeet, denies peripheral arterial stent. Respiratory: The patient denies tuberculosis, denies pneumonia, deniesfrequent cough, denies pulmonary embolism, denies shortness of breath, anddenies coughing up blood. Gastrointestinal: The patient denies difficulty swallowing, denies acidreflux, denies ulcers, denies vomiting, denies jaundice/hepatitis, deniesgallbladder problems, denies black or tarry stools, NOTES hemorrhoids, NOTESbleeding from rectum, NOTES diverticulitis, NOTES constipation, deniesdiarrhea, denies loss of stool control, and denies hernias. Kidney/Bladder: The patient denies kidney stones, denies urineinfections, and denies bloody urine. Skin: The patient denies a history of skin cancer, deniesbleeding/changing moles, and denies a history of skin rash. Neurologic: The patient denies a history of epilepsy /convulsions, deniesheadaches, denies head/spinal injuries, and denies stroke/TIA. Psychiatric: The patient denies psychiatric medications, deniesdepression, and denies voices, denies substance abuse. Endocrine: The patient NOTES thyroid disorders, denies diabetes, anddenies hormonal problems. Hematologic: The patient denies a history of bruising, denies bleeding,and denies anemia, denies blood clots. Infections: The patient NOTES a history of measles and mumps , deniesrheumatic fever, and denies sexually transmitted diseases. Musculoskeletal: The patient denies back pain/injury, denies backproblems, denies sciatica, NOTES knee/foot trouble, NOTES arthritis, or deniesgout.When was patient's last Mammogram screening? 2016 Last Colonoscopy: 2004Radavid Membreno PA-C 08/01/2016 4:01 PM SignedHISTORY AND PHYSICALShirley Juan Miguel EscalerawEFERRING PHYSICIAN: Karsten Swanson, [facility] COMPLAINT: ConsultHPI: The patient is a 75 year old female referred for endoscopy. Lucero notesthe following GI complaints: Lucero denies abdominal pain.. Lucero deniesdiarrhea. Lucero notes occasional constipation. Lucero denies a change inbowel habits. Lucero denies melena. Lucero notes occasional bright redblood per rectum. Lucero notes hemorrhoids.The patient notes no history of upper GI complaints.Lucero has undergone prior endoscopy in [address] Hager. Entire colon wasnormal. No family history of colon cancer.Patient denies cardiac history and pulmonary history.The patient is being seen by me today at the request of Dr. Karsten Swanson MDfor my opinion and advice regarding screening colonoscopy.PAST MEDICAL HISTORYDiagnosis Date- Diverticulosis of colon (without mention of hemorrhage)- Mixed hyperlipidemia- Unspecified constipation- Unspecified hypothyroidismPAST SURGICAL HISTORYNo date: DELIVERY ONLY Comment: , low dxklaggv66/8/05: COLONOSCOP W / OR W/[facility] SPE[facility] Comment: ColonoscopyNo date: LIGATE FALLOPIAN TUBE Comment: Tubal ligationNo date: REMV CATARACT EXTRACAP,INSERT LENS Comment: Cataract RemovalCurrent Outpatient Prescriptions:krill oil 500 mg cap Take by mouth once daily.levothyroxine (SYNTHROID) 100 mcg tablet Take 1 tablet by mouth daily beforebreakfast.ezetimibe (ZETIA) 10 mg tablet Take 1 tablet by mouth once daily.ramipril (ALTACE) 10 mg capsule Take 1 capsule by mouth twice daily.metoprolol succinate ER (TOPROL XL) 50 mg 24 hr tablet Take 1 tablet by mouthonce daily.Cholecalciferol, Vitamin D3, 1,000 unit cap Take 1 capsule by mouth once daily.Clobetasol Propionate (CLOBEX) 0.05 % TOPICAL Sham Apply to affected area.Bhifhmvyhrw-Mhbznwivj-Fox C-Mn (GLUCOSAMINE CHONDROITIN MAXSTR) 500-400 mg ORALCap Take one(1) capsules three(3) times daily..COMPOUNDED PRESCRIPTION vinpocetine 10 mg - 1 dailyPolyethylene Glycol 3350 (MIRALAX) 17 gram/dose ORAL powder Drink a mix of 1scoop in 8 oz of water once daily as needed for constipationCalcium Carb-Mag Hydrox-Simeth (ROLAIDS MULTI-SYMPTOM) 675-135- 60 mg ORAL Chewtake 2 tabs as neededFluocinolone-Shower Cap (DERMA-SMOOTHE/FS SCALP OIL) 0.01 % TOPICAL Oil use asdirectedMULTIPLE VITAMIN ORAL TAB Take one(1) tablet daily.CALCIUM 600 + D(3 ) 600 MG-200 UNIT ORAL TAB Take one(1) tablet two(2) timesdaily.MELATONIN 3 MG ORAL TAB HALF TAB DAILYNo current facility-administered medications for this visit.ALLERGIES: Adhesive; Grifulvin V [Griseofulvin Microsize]; Niaspan [Niacin];Enfgpqn-Ktg-Hcx Reductase InhibitorsPERSONAL HISTORY: Social History Marital status: Spouse name: Years of education: Number of children:Social History Main Topics Smoking status: Never Smoker Alcohol use : No Drug use: No Sexual activity: Yes Partners with: MaleFAMILY HISTORY:FAMILY HISTORY Cancer Mother Comment: CERVICAL Hypertension Mother Hypertension Father Diabetes FatherREVIEW OF SYMPTOMS: The review of systems data was entered by the nurse and reviewed by Adelina Notes :Lizett Pradhan Ma 07/31/2016 12:58 PM SignedREVIEW OF SYSTEMS: General: The patient denies fatigue, denies weight loss, denies weightgain, denies feeling hot, and denies feelings of cold. Eyes: The patient denies glaucoma, denies eye injury/surgery, does notwear glasses or contacts. Ear/Nose/Throat: The patient denies allergies, denies hayfever, deniesear infections, and denies bloody noses. Cardiovascular: The patient denies chest pain, denies heart disease,NOTES high blood pressure,denies cardiac stent, denies prior heart attack,denies irregular heart beat, NOTES high cholesterol, denies poor circulation,denies heart failure, NOTES cardiac issues, denies claudication, denies coldfeet, denies peripheral arterial stent. Respiratory: The patient denies tuberculosis, denies pneumonia, deniesfrequent cough, denies pulmonary embolism, denies shortness of breath, anddenies coughing up blood. Gastrointestinal: The patient denies difficulty swallowing, denies acidreflux, denies ulcers, denies vomiting, denies jaundice/hepatitis, deniesgallbladder problems, denies black or tarry stools, NOTES hemorrhoids, NOTESbleeding from rectum, NOTES diverticulitis, NOTES constipation, deniesdiarrhea, denies loss of stool control, and denies hernias. Kidney/Bladder: The patient denies kidney stones, denies urineinfections, and denies bloody urine. Skin: The patient denies a history of skin cancer, deniesbleeding/changing moles, and denies a history of skin rash. Neurologic: The patient denies a history of epilepsy /convulsions, deniesheadaches, denies head/spinal injuries, and denies stroke/TIA. Psychiatric: The patient denies psychiatric medications, deniesdepression, and denies voices, denies substance abuse. Endocrine: The patient NOTES thyroid disorders, denies diabetes, anddenies hormonal problems. Hematologic: The patient denies a history of bruising, denies bleeding,and denies anemia, denies blood clots. Infections: The patient NOTES a history of measles and mumps , deniesrheumatic fever, and denies sexually transmitted diseases. Musculoskeletal: The patient denies back pain/injury, denies backproblems, denies sciatica, NOTES knee/foot trouble, NOTES arthritis, or deniesgout.When was patient's last Mammogram screening? 2016 Last Colonoscopy: 2004Rachel Sara Pradhan Ma JEANNIE LantiguaCPHYSICAL EXAMINATION:General: The patient is 75 year old female, well nourished, well hydrated inno acute distress. The patient is oriented to time , place, and person.VITALS: Blood pressure 116/78, pulse 76, height 165.1 cm (5' 5ANDquot;) , uplfya21 kg (150 lb). Body mass index is 24.96 kg/(m2).HEENT: Normal cephalic, ataumatic, pupils are equally round, sclera areanicteric, mucous membranes are moist, oropharynx is clear. Neck has nomasses, asymmetry or lymphadenopathy. Thyroid is unremarkable.Respiratory: Clear to auscultation and percussion. Normal respiratoryexcursion and pattern.Cardiac: Examination is regular rate and rhythm.Abdominal exam: Soft, nontender, with no palpable masses. Nohepatosplenomegaly. No palpable hernias.Rectal exam: exam deferredExtremities: no clubbing, cyanosis or edema. No adenopathy.IMPRESSION: Screening colonoscopy. Occasional rectal bleeding and constipationPLAN: Dr. Siddiqui will plan to perform lower endoscopy. We discussed therisks and benefits of the planned endoscopy. I have informed the patient thatcomplications can occur including failure to complete the endoscopy andperforation. The patient had the opportunity to ask questions concerning theplanned endoscopy. My staff has also explained the procedure to the patient inunderstandable terms and has given the patient printed material concerning theprocedure. The patient freely consents to surgery.I plan to use golytely bowel preparation for endoscopyMy findings have been communicated to Dr. Karsten Swanson MD via sharedmedical record. This note will be forwarded to Dr. Karsten Swanson MD.Diagnoses: (Z12.11) Encounter for screening colonoscopy (primary encounterdiagnosis)Return to Clinic: The patient is instructed to follow-up with me as needed. ARYAN Lantigua-Aubrey Membreno PA-C 08/01/2016 4:01 PM SignedHISTORY AND PHYSICALShirley A Graw1REFERRING PHYSICIAN: Karsten Swanson, [facility] COMPLAINT: ConsultHPI: The patient is a 75 year old female referred for endoscopy. Lucero notesthe following GI complaints: Lucero denies abdominal pain.. Lucero deniesdiarrhea. Lucero notes occasional constipation. Lucero denies a change inbowel habits. Lucero denies melena. Lucero notes occasional bright redblood per rectum. Lucero notes hemorrhoids.The patient notes no history of upper GI complaints.Lucero has undergone prior endoscopy in [address] Hager. Entire colon wasnormal. No family history of colon cancer.Patient denies cardiac history and pulmonary history.The patient is being seen by me today at the request of Dr. Karsten Swanson MDfor my opinion and advice regarding screening colonoscopy.PAST MEDICAL HISTORYDiagnosis Date- Diverticulosis of colon (without mention of hemorrhage) - Mixed hyperlipidemia- Unspecified constipation- Unspecified hypothyroidismPAST SURGICAL HISTORYNo date: DELIVERY ONLY Comment: , low zhqgrutx15/8/05: COLONOSCOP W/ OR W/O [facility] SPE[facility] Comment: ColonoscopyNo date: LIGATE FALLOPIAN TUBE Comment: Tubal ligationNo date: REMV CATARACT EXTRACAP,INSERT LENS Comment: Cataract RemovalCurrent Outpatient Prescriptions:krill oil 500 mg cap Take by mouth once daily.levothyroxine (SYNTHROID) 100 mcg tablet Take 1 tablet by mouth daily beforebreakfast.ezetimibe (ZETIA) 10 mg tablet Take 1 tablet by mouth once daily.ramipril (ALTACE) 10 mg capsule Take 1 capsule by mouth twice daily.metoprolol succinate ER (TOPROL XL) 50 mg 24 hr tablet Take 1 tablet by mouthonce daily.Cholecalciferol, Vitamin D3, 1,000 unit cap Take 1 capsule by mouth once daily.Clobetasol Propionate (CLOBEX) 0.05 % TOPICAL Sham Apply to affected area.Vuounlqchks-Fbekzrhzp-Ihv C-Mn (GLUCOSAMINE CHONDROITIN MAXSTR) 500-400 mg ORALCap Take one(1) capsules three(3) times daily..COMPOUNDED PRESCRIPTION vinpocetine 10 mg - 1 dailyPolyethylene Glycol 3350 (MIRALAX) 17 gram/dose ORAL powder Drink a mix of 1scoop in 8 oz of water once daily as needed for constipationCalcium Carb-Mag Hydrox-Simeth (ROLAIDS MULTI-SYMPTOM) 675-135- 60 mg ORAL Chewtake 2 tabs as neededFluocinolone-Shower Cap (DERMA-SMOOTHE/FS SCALP OIL) 0.01 % TOPICAL Oil use asdirectedMULTIPLE VITAMIN ORAL TAB Take one(1) tablet daily.CALCIUM 600 + D(3 ) 600 MG-200 UNIT ORAL TAB Take one(1) tablet two(2) timesdaily.MELATONIN 3 MG ORAL TAB HALF TAB DAILYNo current facility-administered medications for this visit.ALLERGIES: Adhesive; Grifulvin V [Griseofulvin Microsize]; Niaspan [Niacin];Hqafhhs-Gbj-Ddu Reductase InhibitorsPERSONAL HISTORY: Social History Marital status: Spouse name: Years of education: Number of children:Social History Main Topics Smoking status: Never Smoker Alcohol use : No Drug use: No Sexual activity: Yes Partners with: MaleFAMILY HISTORY:FAMILY HISTORY Cancer Mother Comment: CERVICAL Hypertension Mother Hypertension Father Diabetes FatherREVIEW OF SYMPTOMS: The review of systems data was entered by the nurse and reviewed by Adelina Notes :Lizett Pradhan Ma 07/31/2016 12:58 PM SignedREVIEW OF SYSTEMS: General: The patient denies fatigue, denies weight loss, denies weightgain, denies feeling hot, and denies feelings of cold. Eyes: The patient denies glaucoma, denies eye injury/surgery, does notwear glasses or contacts. Ear/Nose/Throat: The patient denies allergies, denies hayfever, deniesear infections, and denies bloody noses. Cardiovascular: The patient denies chest pain, denies heart disease,NOTES high blood pressure,denies cardiac stent, denies prior heart attack,denies irregular heart beat, NOTES high cholesterol, denies poor circulation,denies heart failure, NOTES cardiac issues, denies claudication, denies coldfeet, denies peripheral arterial stent. Respiratory: The patient denies tuberculosis, denies pneumonia, deniesfrequent cough, denies pulmonary embolism, denies shortness of breath, anddenies coughing up blood. Gastrointestinal: The patient denies difficulty swallowing, denies acidreflux, denies ulcers, denies vomiting, denies jaundice/hepatitis, deniesgallbladder problems, denies black or tarry stools, NOTES hemorrhoids, NOTESbleeding from rectum, NOTES diverticulitis, NOTES constipation, deniesdiarrhea, denies loss of stool control, and denies hernias. Kidney/Bladder: The patient denies kidney stones, denies urineinfections, and denies bloody urine. Skin: The patient denies a history of skin cancer, deniesbleeding/changing moles, and denies a history of skin rash. Neurologic: The patient denies a history of epilepsy /convulsions, deniesheadaches, denies head/spinal injuries, and denies stroke/TIA. Psychiatric: The patient denies psychiatric medications, deniesdepression, and denies voices, denies substance abuse. Endocrine: The patient NOTES thyroid disorders, denies diabetes, anddenies hormonal problems. Hematologic: The patient denies a history of bruising, denies bleeding,and denies anemia, denies blood clots. Infections: The patient NOTES a history of measles and mumps , deniesrheumatic fever, and denies sexually transmitted diseases. Musculoskeletal: The patient denies back pain/injury, denies backproblems, denies sciatica, NOTES knee/foot trouble, NOTES arthritis, or deniesgout.When was patient's last Mammogram screening? 2016 Last Colonoscopy: ARYAN Cid Ma-CPHYSICAL EXAMINATION:General: The patient is 75 year old female, well nourished, well hydrated inno acute distress. The patient is oriented to time , place, and person.VITALS: Blood pressure 116/78, pulse 76, height 165.1 cm (5' 5ANDquot;) , eyksbo68 kg (150 lb). Body mass index is 24.96 kg/(m2).HEENT: Normal cephalic, ataumatic, pupils are equally round, sclera areanicteric, mucous membranes are moist, oropharynx is clear. Neck has nomasses, asymmetry or lymphadenopathy. Thyroid is unremarkable.Respiratory: Clear to auscultation and percussion. Normal respiratoryexcursion and pattern.Cardiac: Examination is regular rate and rhythm.Abdominal exam: Soft, nontender, with no palpable masses. Nohepatosplenomegaly. No palpable hernias.Rectal exam: exam deferredExtremities: no clubbing, cyanosis or edema. No adenopathy.IMPRESSION: Screening colonoscopy. Occasional rectal bleeding and constipationPLAN: Dr. Siddiqui will plan to perform lower endoscopy. We discussed therisks and benefits of the planned endoscopy. I have informed the patient thatcomplications can occur including failure to complete the endoscopy andperforation. The patient had the opportunity to ask questions concerning theplanned endoscopy. My staff has also explained the procedure to the patient inunderstandable terms and has given the patient printed material concerning theprocedure. The patient freely consents to surgery.I plan to use golytely bowel preparation for endoscopyMy findings have been communicated to Dr. Karsten Swanson MD via sharedmedical record. This note will be forwarded to Dr. Karsten Swanson MD.Diagnoses: (Z12.11) Encounter for screening colonoscopy (primary encounterdiagnosis)Return to Clinic: The patient is instructed to follow-up with me as needed. ARYAN Lantigua-CReferring Provider: KARSTEN SWANSON [[id number]]Allergies As of Date: 07/31/2016 Noted Allergy ReactionADHESIVE 08/24/2008GRIFULVIN V (GRISEOFULVIN MICROSI*11/04/2004NIASPAN (NIACIN) 08/15/2011 8 - GI Upset Comments: Burning in stomach.VFLJCJR-EDI-VEU REDUCTASE INHIBIT*12/19/2009 5 - IntoleranceDate Reviewed: 07/31/2016Reviewed by: Lizett Pradhan Ma - Fully AssessedReason for Visit: Consult [173]Primary Visit Diagnosis:Encounter for screening colonoscopy [Z12.11]Order(s):SURGICAL REQUEST - ELECTIVE [[id number]] Order #: [id number]: 1Prescriptions as of 07/31/2016 Sig: KRILL OIL 500 MG CAPSULE Take by mouth once daily. LEVOTHYROXINE 100 MCG TABLET Take 1 tablet by mouth daily * EZETIMIBE 10 MG TABLET Take 1 tablet by mouth once d* RAMIPRIL 10 MG CAPSULE Take 1 capsule by mouth twice* METOPROLOL SUCCINATE ER 50 MG* Take 1 tablet by mouth once d* CHOLECALCIFEROL (VITAMIN D3) * Take 1 capsule by mouth once * CLOBETASOL 0.05 % SHAMPOO Apply to affected area. EYJDAWWLKHM-DLOLLXLFF-PMZ C-M* Take one(1) capsules three(3)* COMPOUNDED PRESCRIPTION vinpocetine 10 mg - 1 daily POLYETHYLENE GLYCOL 3350 17 G* Drink a mix of 1 scoop in 8 o* CALCIUM CARB-MAG HYDROX-SIMET* take 2 tabs as needed FLUOCINOLONE 0.01 % SCALP OIL* use as directed MULTIPLE VITAMIN TABLET Take one( 1) tablet daily. 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 Eyes: The patient denies glaucoma, denies eye injury/surgery, doesnot wear glasses or contacts. Ear/Nose/Throat: The patient denies allergies, denies hayfever,denies ear infections, and denies bloody noses. Cardiovascular: The patient denies chest pain, denies heart disease,NOTES high blood pressure,denies cardiac stent, denies prior heart attack,denies irregular heart beat, NOTES high cholesterol, denies poorcirculation, denies heart failure, NOTES cardiac issues, deniesclaudication, denies cold feet, denies peripheral arterial stent. Respiratory: The patient denies tuberculosis, denies pneumonia,denies frequent cough, denies pulmonary embolism, denies shortness ofbreath, and denies coughing up blood. Gastrointestinal: The patient denies difficulty swallowing, deniesacid reflux, denies ulcers, denies vomiting, denies jaundice/hepatitis,denies gallbladder problems, denies black or tarry stools, NOTEShemorrhoids, NOTES bleeding from rectum, NOTES diverticulitis, NOTESconstipation, denies diarrhea , denies loss of stool control, and denieshernias. Kidney/Bladder: The patient denies kidney stones, denies urineinfections, and denies bloody urine. Skin: The patient denies a history of skin cancer, deniesbleeding/changing moles, and denies a history of skin rash. Neurologic: The patient denies a history of epilepsy/convulsions,denies headaches, denies head/spinal injuries , and denies stroke/TIA. Psychiatric: The patient denies psychiatric medications, deniesdepression, and denies voices, denies substance abuse. Endocrine: The patient NOTES thyroid disorders, denies diabetes, anddenies hormonal problems. Hematologic: The patient denies a history of bruising, deniesbleeding, and denies anemia, denies blood clots. Infections: The patient NOTES a history of measles and mumps, deniesrheumatic fever, and denies sexually transmitted diseases. Musculoskeletal: The patient denies back pain/injury, denies backproblems, denies sciatica, NOTES knee/foot trouble, NOTES arthritis, ordenies gout.When was patient's last Mammogram screening? 2015 Last Colonoscopy: 2005Radavid Pradhan MaMedications Discontinued During This Encounter COMPOUNDED PRESCRIPTION 240 g 5 06/28/2013 07/31/2016 Class: Print RX Sig: ketamine 10% amitripytline 2% gabapentin 4% nifedipine 2% lidocaine 5% in activemax.Apply one to two grams (03/12-1/ tsp) to affected area two to three times daily Disc: Other OMEGA-3 FATTY ACIDS/FISH OIL (OMEGA * 07/31/2016 Class : Med Update Route: ORAL Sig: Take by mouth twice daily. Disc: Other VIT B COMPLEX 100 CMB #2/HERBS (MAHOGANY* 07/31/2016 Class: Med Update Route: ORAL Sig: Take by mouth once daily. Disc: OtherEncounter Number: [id number] Status:Closed by KIM MEMBRENO PA-C on 08/01/16 HOSP Observed: 07/31/2016 Status: COMPLETED Source: [facility] 12:00 AM [facility] RE[facility] Patient:Lucero Pal AMRN: <[id number]>Height:5' 5( 1.651 m)Weight:149 lb 14.6 oz (68 kg)Outpatient Medications as of 08/19/16:krill oil 500 mg caplevothyroxine (SYNTHROID) 100 mcg tabletezetimibe (ZETIA) 10 mg tabletramipril (ALTACE) 10 mg capsulemetoprolol succinate ER (TOPROL XL) 50 mg 24 hr tabletCholecalciferol, Vitamin D3, 1,000 unit capClobetasol Propionate (CLOBEX ) 0.05 % TOPICAL ShamPolyethylene Glycol 3350 (MIRALAX) 17 gram/dose ORAL powderCalcium Carb-Mag Hydrox-Simeth (ROLAIDS MULTI-SYMPTOM) 675-135-60 mg ORAL ChewMULTIPLE VITAMIN ORAL TABCALCIUM 600 + D(3) 600 MG-200 UNIT ORAL TABMELATONIN 3 MG ORAL TABAdmission/Clinic Administered Medications as of 08/19/16:lactated ringers infusionProblem List:Acquired hypothyroidism [E03.9]Osteoporosis, unspecified [M81.0]Pure hypercholesterolemia [E78.00]Bladder instability [N32.89]Essential hypertension [I10]Scalp psoriasis [L40.9]Carotid bruit present [R09.89] Psoriasis [L40.9]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 Eyes: The patient denies glaucoma, denies eye injury/surgery, does notwear glasses or contacts. Ear/Nose/ Throat: The patient denies allergies, denies hayfever, denies earinfections, and denies bloody noses. Cardiovascular: The patient denies chest pain, denies heart disease, NOTEShigh blood pressure,denies cardiac stent, denies prior heart attack, deniesirregular heart beat, NOTES high cholesterol, denies poor circulation, deniesheart failure, NOTES cardiac issues, denies claudication, denies cold feet,denies peripheral arterial stent. Respiratory: The patient denies tuberculosis, denies pneumonia, deniesfrequent cough, denies pulmonary embolism , denies shortness of breath, anddenies coughing up blood. Gastrointestinal: The patient denies difficulty swallowing, denies acidreflux, denies ulcers, denies vomiting, denies jaundice/hepatitis, deniesgallbladder problems, denies black or tarry stools, NOTES hemorrhoids, NOTESbleeding from rectum, NOTES diverticulitis, NOTES constipation, denies diarrhea,denies loss of stool control, and denies hernias. Kidney/Bladder: The patient denies kidney stones, denies urine infections, and denies bloody urine. Skin: The patient denies a history of skin cancer, deniesbleeding/changing moles, and denies a history of skin rash. Neurologic: The patient denies a history of epilepsy/convulsions, deniesheadaches, denies head/spinal injuries, and denies stroke/TIA. Psychiatric: The patient denies psychiatric medications, deniesdepression, and denies voices, denies substance abuse. Endocrine: The patient NOTES thyroid disorders, denies diabetes, anddenies hormonal problems. Hematologic: The patient denies a history of bruising, denies bleeding,and denies anemia, denies blood clots. Infections: The patient NOTES a history of measles and mumps, deniesrheumatic fever, and denies sexually transmitted diseases. Musculoskeletal: The patient denies back pain/injury, denies backproblems, denies sciatica, NOTES knee/foot trouble, NOTES arthritis, or deniesgout.When was patient's last Mammogram screening? 2016 Last Colonoscopy: Evy Membreno PA-C 08/01/2016 4:01 PM SignedHISTORY AND PHYSICALShirley Juan Miguel EscalerawPROMEDICA MONROE REGIONAL HOSPITALERRING PHYSICIAN: Karsten Swanson [facility] COMPLAINT: ConsultHPI: The patient is a 75 year old female referred for endoscopy. Lucero notesthe following GI complaints: Lucero denies abdominal pain.. Lucero deniesdiarrhea. Lucero notes occasional constipation. Lucero denies a change inbowel habits. Lucero denies melena. Lucero notes occasional bright red bloodper rectum. Lucero notes hemorrhoids.The patient notes no history of upper GI complaints.Lucero has undergone prior endoscopy [place] [address] Hager. Entire colon wasnormal. No family history of colon cancer.Patient denies cardiac history and pulmonary history.The patient is being seen by me today at the request of Dr. Karsten Swanson MDfor my opinion and advice regarding screening colonoscopy.PAST MEDICAL HISTORYDiagnosis Date- Diverticulosis of colon (without mention of hemorrhage) - Mixed hyperlipidemia- Unspecified constipation- Unspecified hypothyroidismPAST SURGICAL HISTORYNo date: DELIVERY ONLY Comment: , low vfakaifl20/8/ 05: COLONOSCOP W/ OR W/O [facility] Comment: ColonoscopyNo date: LIGATE FALLOPIAN TUBE Comment: Tubal ligationNo date: REMV CATARACT EXTRACAP,INSERT LENS Comment : Cataract RemovalCurrent Outpatient Prescriptions:krill oil 500 mg cap Take by mouth once daily.levothyroxine (SYNTHROID) 100 mcg tablet Take 1 tablet by mouth daily beforebreakfast.ezetimibe (ZETIA) 10 mg tablet Take 1 tablet by mouth once daily.ramipril (ALTACE) 10 mg capsule Take 1 capsule by mouth twice daily.metoprolol succinate ER (TOPROL XL) 50 mg 24 hr tablet Take 1 tablet by mouthonce daily.Cholecalciferol, Vitamin D3, 1,000 unit cap Take 1 capsule by mouth once daily.Clobetasol Propionate (CLOBEX) 0.05 % TOPICAL Sham Apply to affected area.Ffnrtufbsak-Yneywlcxa-Shh C-Mn (GLUCOSAMINE CHONDROITIN MAXSTR) 500-400 mg ORALCap Take one(1) capsules three(3) times daily..COMPOUNDED PRESCRIPTION vinpocetine 10 mg - 1 dailyPolyethylene Glycol 3350 (MIRALAX) 17 gram/dose ORAL powder Drink a mix of 1scoop in 8 oz of water once daily as needed for constipationCalcium Carb-Mag Hydrox-Simeth (ROLAIDS MULTI-SYMPTOM) 675-135-60 mg ORAL Chewtake 2 tabs as neededFluocinolone-Shower Cap (DERMA-SMOOTHE/FS SCALP OIL) 0.01 % TOPICAL Oil use asdirectedMULTIPLE VITAMIN ORAL TAB Take one(1) tablet daily.CALCIUM 600 + D(3) 600 MG-200 UNIT ORAL TAB Take one(1) tablet two(2) timesdaily.MELATONIN 3 MG ORAL TAB HALF TAB DAILYNo current facility-administered medications for this visit.ALLERGIES: Adhesive; Grifulvin V [Griseofulvin Microsize]; Niaspan [Niacin];Jjyawmb-Bny-Qln Reductase InhibitorsPERSONAL HISTORY: Social History Marital status: Spouse name: Years of education: Number of children:Social History Main Topics Smoking status: Never Smoker Alcohol use: No Drug use: No Sexual activity: Yes Partners with: MaleFAMILY HISTORY:FAMILY HISTORY Cancer Mother Comment: CERVICAL Hypertension Mother Hypertension Father Diabetes FatherREVIEW OF SYMPTOMS: The review of systems data was entered by the nurse and reviewed by Adelina Notes:Lizett Pradhan Ma 12:58 PM SignedREVIEW OF SYSTEMS: General: The patient denies fatigue, denies weight loss, denies weightgain, denies feeling hot, and denies feelings of cold. Eyes: The patient denies glaucoma, denies eye injury/surgery, does notwear glasses or contacts. Ear/Nose/Throat: The patient denies allergies, denies hayfever, denies earinfections, and denies bloody noses. Cardiovascular: The patient denies chest pain, denies heart disease, NOTEShigh blood pressure,denies cardiac stent, denies prior heart attack, deniesirregular heart beat, NOTES high cholesterol, denies poor circulation, deniesheart failure, NOTES cardiac issues, denies claudication, denies cold feet,denies peripheral arterial stent. Respiratory: The patient denies tuberculosis, denies pneumonia, deniesfrequent cough, denies pulmonary embolism, denies shortness of breath, anddenies coughing up blood. Gastrointestinal: The patient denies difficulty swallowing, denies acidreflux, denies ulcers, denies vomiting, denies jaundice/hepatitis, deniesgallbladder problems, denies black or tarry stools, NOTES hemorrhoids, NOTESbleeding from rectum, NOTES diverticulitis, NOTES constipation, denies diarrhea,denies loss of stool control, and denies hernias. Kidney/Bladder: The patient denies kidney stones, denies urine infections,and denies bloody urine. Skin: The patient denies a history of skin cancer, deniesbleeding/changing moles, and denies a history of skin rash. Neurologic: The patient denies a history of epilepsy/convulsions, deniesheadaches, denies head/spinal injuries, and denies stroke/TIA. Psychiatric: The patient denies psychiatric medications, deniesdepression, and denies voices, denies substance abuse. Endocrine: The patient NOTES thyroid disorders, denies diabetes, anddenies hormonal problems. Hematologic: The patient denies a history of bruising, denies bleeding,and denies anemia, denies blood clots. Infections: The patient NOTES a history of measles and mumps, deniesrheumatic fever, and denies sexually transmitted diseases. Musculoskeletal: The patient denies back pain/injury, denies backproblems, denies sciatica, NOTES knee/foot trouble, NOTES arthritis, or deniesgout.When was patient's last Mammogram screening? 2016 Last Colonoscopy: ARYAN Cid Ma-CPHYSICAL EXAMINATION:General: The patient is 75 year old female, well nourished, well hydrated in noacute distress. The patient is oriented to time, place, and person.VITALS: Blood pressure 116/78, pulse 76, height 165.1 cm (5' 5), weight 68 kg(150 lb). Body mass index is 24.96 kg/(m2).HEENT: Normal cephalic, ataumatic , pupils are equally round, sclera areanicteric, mucous membranes are moist, oropharynx is clear. Neck has no masses,asymmetry or lymphadenopathy. Thyroid is unremarkable.Respiratory: Clear to auscultation and percussion. Normal respiratoryexcursion and pattern.Cardiac: Examination is regular rate and rhythm.Abdominal exam: Soft, nontender, with no palpable masses. Nohepatosplenomegaly. No palpable hernias.Rectal exam: exam deferredExtremities: no clubbing, cyanosis or edema. No adenopathy.IMPRESSION: Screening colonoscopy. Occasional rectal bleeding and constipationPLAN: Dr. Siddiqui will plan to perform lower endoscopy. We discussed therisks and benefits of the planned endoscopy. I have informed the patient thatcomplications can occur including failure to complete the endoscopy andperforation. The patient had the opportunity to ask questions concerning theplanned endoscopy. My staff has also explained the procedure to the patient inunderstandable terms and has given the patient printed material concerning theprocedure. The patient freely consents to surgery.I plan to use golytely bowel preparation for endoscopyMy findings have been communicated to Dr. Karsten Swanson MD via shared medicalrecord. This note will be forwarded to Dr. Karsten Swanson MD.Diagnoses: (Z12.11) Encounter for screening colonoscopy (primary encounterdiagnosis)Return to Clinic: The patient is instructed to follow-up with me as needed. ARYAN Lantigua-ARYAN Ramirez 08/01/2016 4:01 PM SignedHISTORY AND PHYSICALShirley Juan Miguel EscalerawEFERRING PHYSICIAN: Karsten Swanson, [facility] COMPLAINT: ConsultHPI: The patient is a 75 year old female referred for endoscopy. Lucero notesthe following GI complaints: Lucero denies abdominal pain.. Lucero deniesdiarrhea. Lucero notes occasional constipation. Lucero denies a change inbowel habits. Lucero denies melena. Lucero notes occasional bright red bloodper rectum. Lucero notes hemorrhoids.The patient notes no history of upper GI complaints.Lucero has undergone prior endoscopy [place] [address] Hager. Entire colon wasnormal. No family history of colon cancer.Patient denies cardiac history and pulmonary history.The patient is being seen by me today at the request of Dr. Karsten Swanson MDfor my opinion and advice regarding screening colonoscopy.PAST MEDICAL HISTORYDiagnosis Date- Diverticulosis of colon (without mention of hemorrhage)- Mixed hyperlipidemia- Unspecified constipation- Unspecified hypothyroidismPAST SURGICAL HISTORYNo date: DELIVERY ONLY Comment: , low kejyygau69/8/05: COLONOSCOP W/ OR W/O [facility] Comment: ColonoscopyNo date: LIGATE FALLOPIAN TUBE Comment: Tubal ligationNo date: REMV CATARACT EXTRACAP,INSERT LENS Comment: Cataract RemovalCurrent Outpatient Prescriptions:krill oil 500 mg cap Take by mouth once daily.levothyroxine (SYNTHROID) 100 mcg tablet Take 1 tablet by mouth daily beforebreakfast.ezetimibe (ZETIA) 10 mg tablet Take 1 tablet by mouth once daily.ramipril (ALTACE) 10 mg capsule Take 1 capsule by mouth twice daily.metoprolol succinate ER (TOPROL XL) 50 mg 24 hr tablet Take 1 tablet by mouthonce daily.Cholecalciferol, Vitamin D3, 1,000 unit cap Take 1 capsule by mouth once daily.Clobetasol Propionate (CLOBEX) 0.05 % TOPICAL Sham Apply to affected area.Hwxynrfrgwq-Nwkageoks-Ltw C-Mn (GLUCOSAMINE CHONDROITIN MAXSTR) 500-400 mg ORALCap Take one(1) capsules three(3) times daily..COMPOUNDED PRESCRIPTION vinpocetine 10 mg - 1 dailyPolyethylene Glycol 3350 (MIRALAX) 17 gram/dose ORAL powder Drink a mix of 1scoop in 8 oz of water once daily as needed for constipationCalcium Carb-Mag Hydrox-Simeth (ROLAIDS MULTI-SYMPTOM) 675-135-60 mg ORAL Chewtake 2 tabs as neededFluocinolone-Shower Cap (DERMA-SMOOTHE/FS SCALP OIL) 0.01 % TOPICAL Oil use asdirectedMULTIPLE VITAMIN ORAL TAB Take one(1) tablet daily.CALCIUM 600 + D(3) 600 MG-200 UNIT ORAL TAB Take one(1) tablet two(2) timesdaily.MELATONIN 3 MG ORAL TAB HALF TAB DAILYNo current facility-administered medications for this visit.ALLERGIES: Adhesive; Grifulvin V [Griseofulvin Microsize]; Niaspan [Niacin];Gchootu-Kzi-Lls Reductase InhibitorsPERSONAL HISTORY: Social History Marital status: Spouse name: Years of education: Number of children:Social History Main Topics Smoking status: Never Smoker Alcohol use: No Drug use: No Sexual activity: Yes Partners with: MaleFAMILY HISTORY:FAMILY HISTORY Cancer Mother Comment: CERVICAL Hypertension Mother Hypertension Father Diabetes FatherREVIEW OF SYMPTOMS: The review of systems data was entered by the nurse and reviewed by Adelina Notes:Lizett Pradhan Ma 12:58 PM SignedREVIEW OF SYSTEMS: General: The patient denies fatigue, denies weight loss, denies weightgain, denies feeling hot, and denies feelings of cold. Eyes: The patient denies glaucoma, denies eye injury/surgery, does notwear glasses or contacts. Ear/Nose/Throat: The patient denies allergies, denies hayfever, denies earinfections, and denies bloody noses. Cardiovascular: The patient denies chest pain, denies heart disease, NOTEShigh blood pressure,denies cardiac stent, denies prior heart attack, deniesirregular heart beat, NOTES high cholesterol, denies poor circulation, deniesheart failure, NOTES cardiac issues, denies claudication, denies cold feet,denies peripheral arterial stent. Respiratory: The patient denies tuberculosis, denies pneumonia, deniesfrequent cough, denies pulmonary embolism, denies shortness of breath, anddenies coughing up blood. Gastrointestinal: The patient denies difficulty swallowing, denies acidreflux, denies ulcers, denies vomiting, denies jaundice/hepatitis, deniesgallbladder problems, denies black or tarry stools, NOTES hemorrhoids, NOTESbleeding from rectum, NOTES diverticulitis, NOTES constipation, denies diarrhea,denies loss of stool control, and denies hernias. Kidney/Bladder: The patient denies kidney stones, denies urine infections,and denies bloody urine. Skin: The patient denies a history of skin cancer, deniesbleeding/changing moles, and denies a history of skin rash. Neurologic: The patient denies a history of epilepsy/convulsions, deniesheadaches, denies head/spinal injuries, and denies stroke/TIA. Psychiatric: The patient denies psychiatric medications, deniesdepression, and denies voices, denies substance abuse. Endocrine: The patient NOTES thyroid disorders, denies diabetes, anddenies hormonal problems. Hematologic: The patient denies a history of bruising, denies bleeding,and denies anemia, denies blood clots. Infections: The patient NOTES a history of measles and mumps, deniesrheumatic fever, and denies sexually transmitted diseases. Musculoskeletal: The patient denies back pain/injury, denies backproblems, denies sciatica, NOTES knee/foot trouble, NOTES arthritis, or deniesgout.When was patient's last Mammogram screening? 2016 Last Colonoscopy: 2005Rachel L Lorne Gurrola ARYAN Lantigua-CPHYSICAL EXAMINATION:General: The patient is 75 year old female, well nourished, well hydrated in noacute distress. The patient is oriented to time, place, and person.VITALS: Blood pressure 116/78, pulse 76, height 165.1 cm (5' 5), weight 68 kg(150 lb). Body mass index is 24.96 kg/(m2).HEENT: Normal cephalic, ataumatic , pupils are equally round, sclera areanicteric, mucous membranes are moist, oropharynx is clear. Neck has no masses,asymmetry or lymphadenopathy. Thyroid is unremarkable.Respiratory: Clear to auscultation and percussion. Normal respiratoryexcursion and pattern.Cardiac: Examination is regular rate and rhythm.Abdominal exam: Soft, nontender, with no palpable masses. Nohepatosplenomegaly. No palpable hernias.Rectal exam: exam deferredExtremities: no clubbing, cyanosis or edema. No adenopathy.IMPRESSION: Screening colonoscopy. Occasional rectal bleeding and constipationPLAN: Dr. Siddiqui will plan to perform lower endoscopy. We discussed therisks and benefits of the planned endoscopy. I have informed the patient thatcomplications can occur including failure to complete the endoscopy andperforation. The patient had the opportunity to ask questions concerning theplanned endoscopy. My staff has also explained the procedure to the patient inunderstandable terms and has given the patient printed material concerning theprocedure. The patient freely consents to surgery.I plan to use golytely bowel preparation for endoscopyMy findings have been communicated to Dr. Karsten Swanson MD via shared medicalrecord. This note will be forwarded to Dr. Karsten Swanson MD.Diagnoses: (Z12.11) Encounter for screening colonoscopy (primary encounterdiagnosis)Return to Clinic: The patient is instructed to follow-up with me as needed. ARYAN Lantigua-CProgress Notes ( [facility]):Christal [place] LPN 07/22/2016 2:47 PM SignedPt calls to report she needs mammogram ordered. Pt.s last OV: 07/18/16Call pt when order has been filed and pt will schedule appt.Christal Swanson MD 07/22/2016 4:55 PM SignedTelephone on 07/22/16-MAMMOGRAM SCREENING Orly Swanson MD .Roma Chandler LPN 07/22/2016 5:41 PM SignedLeft message to call office. 07/22/2016 5:41 PM. Roma Chandler Namita Mccarthy LPN 07/22/2016 6:11 PM SignedPt notified of order.Christal [place] LPN PROGRESS Observed: 07/18/2016 Status: COMPLETED Source: [place] 12:55 PM [facility] REPOSITORY HNO ID: [id number]: Dusty Zambrano Surg CoordService: (none)Author Type: (none)Type: Progress NotesFiled: 07/18/2016 12:55 PMNote Text:please review patient answered yes to a few questions. Thank you PROGRESS Observed: 07/18/2016 Status: COMPLETED Source: [place] 10:08 AM [facility] REPOSITORY HNO ID: [id number]: Karsten Dunnice: (none) Author Type: PhysicianType: Progress NotesFiled: 07/18/2016 10:12 AMNote Text:Chief ComplaintPatient presents with:PhysicalHPIShitai Pal is a 75 year old female who presents here today forfollow-up of HTN, lipid, hypothyroidis. .Long time awareness of high chol with statin intolerance.BP has been well controlled, elev creatininie this time on labs. Patientdenies any exertional chest pain, dyspnea, palpitations, syncope,orthopnea, edema or paroxysmal nocturnal dyspnea.Hypothyroidism. She has been taking about 6 pills per week of the 112 doseas we planned do cut the dose a bit. No thyroid symptoms.Past medical history, appointments, medications, allergies reviewed.Previous Medical HistoryPAST MEDICAL HISTORYDiagnosis Date- Diverticulosis of colon (without mention of hemorrhage)- Mixed hyperlipidemia- Unspecified constipation- Unspecified hypothyroidismPrevious Surgical HistoryPAST SURGICAL HISTORYNo date: DELIVERY ONLY Comment: , low okjpiacw36/8/ 05: COLONOSCOP W/ OR W/O [facility] Comment: ColonoscopyNo date: LIGATE FALLOPIAN TUBE Comment: Tubal ligationNo date: REMV CATARACT EXTRACAP,INSERT LENS Comment : Cataract RemovalFamily HistoryFAMILY HISTORY Cancer Mother Comment: CERVICAL Hypertension Mother Hypertension Father Diabetes FatherPatient AllergiesALLERGIESAllergen Reactions- Adhesive- Grifulvin V [Griseo*- Niaspan [Niacin] GI Upset Burning in stomach.- Oobpvfc-Tyj-Gyj Red* IntoleranceCurrent MedicationsCurrent Outpatient Prescriptions on File Prior to Visit: Cholecalciferol, Vitamin D3, 1,000 unit cap Take 1 capsule by mouth oncedaily.Clobetasol Propionate (CLOBEX) 0.05 % TOPICAL Sham Apply to affectedarea.Uqpkkbzufpq-Szteyelsv-Pgc C -Mn (GLUCOSAMINE CHONDROITIN MAXSTR) 500-400 mgORAL Cap Take one(1) capsules three( 3) times daily..COMPOUNDED PRESCRIPTION vinpocetine 10 mg - 1 dailyPolyethylene Glycol 3350 (MIRALAX) 17 gram/dose ORAL powder Drink a mix of1 scoop in 8 oz of water once daily as needed for constipationCalcium Carb-Mag Hydrox-Simeth (ROLAIDS MULTI-SYMPTOM) 675-135-60 mg ORALChew take 2 tabs as neededFluocinolone-Shower Cap (DERMA-SMOOTHE/FS SCALP OIL) 0.01 % TOPICAL Oiluse as directedMULTIPLE VITAMIN ORAL TAB Take one(1) tablet daily.CALCIUM 600 + D(3) 600 MG-200 UNIT ORAL TAB Take one(1) tablet two(2)times daily.MELATONIN 3 MG ORAL TAB HALF TAB DAILYCOMPOUNDED PRESCRIPTION ketamine 10% amitripytline 2% gabapentin 4%nifedipine 2% lidocaine 5% in activemax.Apply one to two grams (1/4-1/2tsp) to affected area two to three times dailyOMEGA-3 FATTY ACIDS/FISH OIL (OMEGA 3 FISH OIL ORAL) Take by mouth twicedaily.VIT B COMPLEX 100 CMB #2/HERBS (VITAMIN B COMPLEX 100 #2-HERBS ORAL) Takeby mouth once daily.No current facility-administered medications on file prior to visit.Social HistorySocial History Marital status: Spouse name: Years of education: Number of children:Social History Main Topics Smoking status: Never Smoker Alcohol use: No Drug use: No Sexual activity: Yes Partners with: MaleReview of SymptomsROS:General: Feels well, no weight changes, fever, chills.HEENT: No sinus congestion, earache, sore throat.Cardiac : No chest pain, palpitations, shortness of breathResp: No cough, wheeze.GI: No reflux symptoms, food intolerance, bowel changes.: No urinary frequency, dysuria.MS : No pain or joint complaints.PHYSICAL EXAMINATIONBP 128/76 (BP Site: Left Arm, BP Position: Sitting, BP Cuff Size: RegularAdult) Pulse 72 Temp 36.3 ?C (97.4 ?F) (Left Tympanic) Resp 16 Ht163.8 cm (5' 4.5) Wt 69 kg (152 lb 1.9 oz) BMI 25.71 kg/a0Ubrdqch: Alert and oriented, no distress, pleasant and cooperative.Ears normal. Throat and pharynx normal. Neck supple. No adenopathy ormasses in the neck or supraclavicular regions. Sinuses non tender. Heart:Regular, normal S1 and S2, no murmurs, rubs, or gallopsLungs: Clear to auscultation bilaterallyAbdomen: BenignExtremities: Feet/ankles without edema, posterior tibial pulses full andsymmetricalHealth Maintenance ListTETANUS due on 07/09/2008COLORECTAL CANCER SCREENING,SEE MODIFIER due on 01/14/2015INFLUENZA(Season Ended) due on 11/07/2016DIABETES SCREEN due on 07/12/2019LIPID SCREEN due on 2BONE DENSITY CompletedZOSTAVAX CompletedADULT PREVNAR-13 CompletedPNEUMOVAX AGE 65 AND OVER WITH 5YR LOOKBACK CompletedData reviewedLabs. Based on your age, race, gender, blood pressure, cholesterol,diabetes and smoking status, your risk for having a cardiovascular eventsuch as a stroke or heart attack is 21 %. Current guidelines suggestlipid lowering medication at a risk of 7.5%.Assessment/Plan:(E03.9) Acquired hypothyroidism (primary encounter diagnosis)Comment: stable on med.Plan: TSH BLD See order.(I10) Essential hypertensionComment:Plan: LIPID PANEL BASIC, ramipril (ALTACE) 10 mg capsule, metoprolol succinate ER (TOPROL XL) 50 mg 24 hr tablet, DISCONTINUED: ramipril (ALTACE) 10 mg capsule, DISCONTINUED: metoprolol succinate ER (TOPROL XL) 50 mg 24 hr tablet Creatinine elevated.(E78.00) Pure hypercholesterolemiaComment:Plan: COMP METABOLIC PANEL, LIPID PANEL BASIC(Z12.11) Special screening for malignant neoplasms, colonComment: Plan: COLONOSCOPY SCRN NOT HIGH RISK Routine.Signed Prescriptions Disp Refills peg 3350-electrolytes (COLYTE) 240-22.72-6.72 -5.84 gram solution 4000 mL0 Sig: Take 4,000 mL by mouth one time only for 1 dose. levothyroxine (SYNTHROID) 100 mcg tablet 90 tablet 3 Sig: Take 1 tablet by mouth daily before breakfast. EDILSON: No ezetimibe (ZETIA) 10 mg tablet 90 tablet 3 Sig: Take 1 tablet by mouth once daily. EDILSON: No ramipril (ALTACE) 10 mg capsule 180 capsule 3 Sig: Take 1 capsule by mouth twice daily. EDILSON: No metoprolol succinate ER (TOPROL XL) 50 mg 24 hr tablet 90 tablet 3 Sig: Take 1 tablet by mouth once daily. EDILSON: NoRTO: bloodwork 3 mos, visit 1 year should be Beck Swanson MD PROGRESS Observed: 07/18/2016 Status: COMPLETED Source: [place] 9:03 AM [facility] REPOSITORY O ID: [id number]: Lucinda Araujo MaService: (none)Author Type: (none)Type: Progress NotesFiled: 07/18/2016 10:12 AMNote Text :WSTR OPEN ACCESS QUESTIONNAIRE 1. Are you or could you be ? No 2. Are you currently having any stomach/gastrointestinal issues at thistime such as constipation, diarrhea, abdominal pain, rectalbleeding etc? Has intermittent constipation and hemmorhoids 3. Do you have an implanted device such as a defibrillator, pacemaker,Cardiac Stent or deep brain stimulation device ? No 4. Do you have any new or past cardiac (heart) or pulmonary (lung)issues? Yes / Heart Murmur 5. Is the patient's BMI 40 or greater? No: Body mass index is 25.71kg/(m2). . Last Wt07/18/16 : 69 kg (152 lb 1.9 oz) Last Ht : 163.8 cm (5' 4.5) 6. Have you had difficulty with prior sedations or complications withother procedures ? No 7. Have you had difficulty with anesthesia previously re:? Difficult intubation? No? Other difficulty or allergic reaction to anesthesia other than post opN/V? No 8. Do you currently use oxygen or a breathing machine at night? No 9. Do you take any narcotics, depression or anti-Anxiety medications or3 or more prescription drugs on a daily basis? Yes10. Do you use any illegal or recreational drugs? No11. Have you been hospitalized in the past 6 weeks? No12. Are you on dialysis or have Chronic Kidney Disease? No13. Have you been diagnosed with chronic liver disease such as hepatitisor cirrhosis? No14. Do you have a seizure disorder? No15. Do you have difficulty swallowing ? No16. Do you have ulcerative colitis or Crohn's disease? No17. Do you take any Blood thinners, including Aspirin or fish oil? YES:Fish Oil18. Do you have any blood disorders (re:hemophiliac)? No19. Are you Diabetic? No20. Any other important health information we should be made aware ofprior to your colonoscopy? NoChecklist: Prior to closing the encounter:? Complete questionnaire: Yes? Confirm Prep order has been Ordered/Pended: Yes.? Patient's procedure could be delayed if not given the script for theprep. Please ensure the prep is escripted to pharmacy or printed.Instructions for the prep will print upon filing or pending this smartset.? Please send all open access questionnaires to [facility] Surg Sched [employer] #[id number] CNOV Observed: 07/18/2016 Status: COMPLETED Source: [place] 8:20 AM [facility] REPOSITORY Office Visit (FAMPWS) ---------LUCERO PAL ([id number]) [address] [facility] Time Provider Department07/18/16 8:20 AM KARSTEN SWANSONPWS During your visit today, we recorded the following information about you: Temperature Pulse Respiration Blood pressure 97.4 degrees 72/minute 16/minute 128/76 Weight Height 69 kg 1.638 Cam Jeffreydottiemaia Galielo 07/18/2016 10: 12 AM SignedWSTR OPEN ACCESS QUESTIONNAIRE 1. Are you or could you be ? No 2. Are you currently having any stomach/gastrointestinal issues at this timesuch as constipation, diarrhea, abdominal pain, rectal bleedingetc? Has intermittent constipation and hemmorhoids 3. Do you have an implanted device such as a defibrillator, pacemaker,Cardiac Stent or deep brain stimulation device? No 4. Do you have any new or past cardiac (heart) or pulmonary (lung) issues? Yes / Heart Murmur 5. Is the patient's BMI 40 or greater? No: Body mass index is 25.71kg/(m2). . Last Wt07/18/16 : 69 kg (152 lb 1.9 oz) Last Ht07/18/16 : 163.8 cm (5' 4.5ANDquot;) 6. Have you had difficulty with prior sedations or complications with otherprocedures ? No 7. Have you had difficulty with anesthesia previously re:? Difficult intubation? No? Other difficulty or allergic reaction to anesthesia other than post op N/V? No 8. Do you currently use oxygen or a breathing machine at night? No 9. Do you take any narcotics, depression or anti-Anxiety medications or 3 ormore prescription drugs on a daily basis? Yes10. Do you use any illegal or recreational drugs? No11. Have you been hospitalized in the past 6 weeks? No12. Are you on dialysis or have Chronic Kidney Disease? No13. Have you been diagnosed with chronic liver disease such as hepatitis orcirrhosis? No14. Do you have a seizure disorder? No15. Do you have difficulty swallowing? No16. Do you have ulcerative colitis or Crohn's disease? No17. Do you take any Blood thinners, including Aspirin or fish oil? YES: IjuaTsc45. Do you have any blood disorders (re: hemophiliac)? No19. Are you Diabetic? No20. Any other important health information we should be made aware of prior [facility] colonoscopy? NoChecklist: Prior to closing the encounter:? Complete questionnaire: Yes? Confirm Prep order has been Ordered/Pended: Yes.? Patient's procedure could be delayed if not given the script for the prep.Please ensure the prep is escripted to pharmacy or printed. Instructions forthe prep will print upon filing or pending this smartset.? Please send all open access questionnaires to [facility] Sched Pool #[id number] Gayle Gurrola 07/18/2016 9:03 AM SignedColonoscopy Procedure OverviewPlease Read Prior to the ProcedureWhat is a ColonoscopyA colonoscopy is an outpatient procedure in which the inside of the largeintestine (colon and rectum) is examined. A colonoscopy is commonly used toevaluate gastrointestinal symptoms, such as rectal and intestinal bleeding,abdominal pain, or changes in bowel habits. Colonoscopies are also performed inindividuals without symptoms to check for colorectal polyps or cancer. Ascreening colonoscopy is recommended for anyone 50 years of age and older, andfor anyone with parents, siblings or children with a history of colorectalcancer or polyps.What Happens Before a ColonoscopyTo have a successful colonoscopy, your bowel must be empty so that yourphysician can clearly view the colon. To do this, it is very important to readand follow all of the instructions given to you at least 2 weeks BEFORE yourexam. If your bowel is not empty, yourcolonoscopy will not be successful and may have to berepeated.If you feel nauseated or vomit while taking the bowel preparation, wait 30minutes before drinking more fluid and start with small sips of solution. Someactivity (such as walking) or a few soda crackers may help decrease the nauseayou are feeling. If the nausea persists, please contact nurse acute care nurse practitioner [phone].You may experience skin irritation around the anus due to the passage of liquidstools. To prevent and treat skin irritation, you should:?Apply Vaseline? or Desitin? ointment to the skin around the anus beforedrinking the bowel preparation medications. These products can be purchased [employer].?Wipe the skin after each bowel movement with disposable wet wipes instead oftoilet paper. These are found in the toilet paper area of the store.?Sit in a bathtub filled with warm water for 10 to 15 minutes after you finishpassing a stool; after soaking, blot the skin dry with a soft cloth, applyVaseline? or Desitin? ointment to the anal area, and place a cotton ball justoutside your anus to absorb leaking fluid.What Happens During a ColonoscopyDuring a colonoscopy, an experienced physician uses a colonoscope (a long,flexible instrument about 1/2 inch in diameter) to view the lining of thecolon. The colonoscope is inserted into the rectum and advanced through thelarge intestine. If necessary during a colonoscopy, small amounts of tissue canbe removed for analysis (a biopsy) and polyps can be identified and entirelyremoved. In many cases, a colonoscopy allows accurate diagnosis and treatmentof colorectal problems without the need for a major operation.Revised 04/2016 5Colonoscopy under conscious sedation using Golytely. . .?You are asked to wear a hospital gown and an IV will be started.?You are given a pain reliever and a sedative intravenously (in your vein). Youwill feel relaxed and somewhat drowsy.?You will lie on your left side , with your knees drawn up towards your chest.?A small amount of air is used to expand the colon so the physician can see thecolon londono.?You may feel mild cramping during the procedure.Cramping can be reduced by taking slow, deep breaths.?The colonoscope is slowly withdrawn while the lining of your bowel iscarefully examined.?The procedure lasts from 30 minutes to 1 hour.What Happens After a Colonoscopy?You will stay in a recovery room for observation until you are ready fordischarge.?You may feel some cramping or a sensation of having gas, but this quicklypasses.?If sedation has been given, a responsiblefamily member or friend must drive you home.?Avoid alcohol, driving, and operating machinery for24 hours following the procedure.?Unless otherwise instructed, you may immediately return to your normal diet.We recommend you wait until the day after your procedure to resume normalactivities.?If polyps were removed or a biopsy was taken, the physician performing yourcolonoscopy will tell you when it is safe to resume taking your blood thinners.?If a biopsy was taken or a polyp was removed, you may notice a little amountof rectal bleeding for1 to 2 days after the procedure. If you have a large amount of rectal bleeding,high or persistent fevers, or severe abdominal pain within the next 2 weeks,please go to your local emergency room and call thephysician who performed your exam.6 Revised 04/2016?Copyright 7942-1249 [facility]. All rights reserved. Revised 04/2016Health InformationFor Patients and the Critical Access HospitalConmiious SedationHow to Prepare for Your Colonoscopy Using Golytely, Nulytely, Trilyte or ColytePreparationsIMPORTANT - Please Read These Instructions at Least 2 Weeks Before YourColonoscopyKey Instructions:?Your bowel must be empty so that your doctor can clearly view your colon.Follow all of the instructions in this handout EXACTLY as they are written.If you do NOT follow the directions for when to start drinking the bowelpreparation (see next page), your colonoscopy WILL be cancelled.?Do NOT eat any solid food the ENTIRE day before your colonoscopy.?Buy your bowel preparation at least 5 days before your colonoscopy.?Do NOT mix the solution until the day before your colonoscopy.Designated Fine Arts Teacher on the Day of Your ExamA responsible family member or friend MUST come with you to your colonoscopyand REMAIN in the endoscopy area until you aredischarged! You are NOT ALLOWED to drive, takea taxi or bus, or leave the Endoscopy Center ALONE.If you do not have a responsible lead driver (family member or friend) with you totake you home, your exam cannot be done with sedation and will be cancelled.MedicationsSome of the medicines you take may need to be stopped or adjusted before yourcolonoscopy.You MUST call the doctor who ordered any of the following medicines at least 2weeks before your colonoscopy.?Blood thinners -- such as Coumadin? (warfarin), Plavix? (clopidogrel), Ticlid?(ticlopidine hydrochloride) , Agrylin? (anagrelide), Xarelto? (Rivaroxaban),Pradaxa? (Dabigatran), Eliquis? (Apixaban) , and Effient? (Prasugrel).?Insulin or diabetes pills. Please call the doctor that monitors your glucoselevels. Your insulin dosage may need to be adjusted due to the dietrestrictions required with this bowel preparation. (Please bring your diabetesmedicines with you on the day ofyour procedure.)If you take aspirin, take it and ALL other medications prescribed by yourdoctor. On the day of your colonoscopy, take your medications with a sip ofwater.Revised 04/2016 1Five (5) Days Before Your Colonoscopy?Do NOT take medicines that stop diarrhea -- such as Imodium?, Kaopectate?, orPepto Bismol?.?Do NOT take fiber supplements -- such as Metamucil?, Citrucel?, or Perdiem?.?Do NOT take products that contain iron -- such as multi-vitamins -- (the labellists what is in the products).?Do NOT take vitamin E.Buy the prescription bowel preparation solution at your local pharmacy [facility].Three (3) Days Before Your ColonoscopyDo NOT eat high-fiber foods -- such as popcorn, beans, seeds (flax, sunflower,quinoa), multigrain bread, nuts, salad/vegetables, or fresh and dried fruit.One (1) Day Before Your ColonoscopyOnly drink clear liquids the ENTIRE DAY before your colonoscopy. Do NOT eat anysolid foods. Drink at least 8 ounces of clear liquids every hour after wakingup. The clear liquids you can drink include:?water, apple, or white grape juice; broth; coffee ortea (without milk or creamer); clear carbonatedbeverages such as jalyn bishnu or lemon-[place] soda; Gatorade? or other sportsdrinks (not red);Lit-Aid? or other flavored drinks (not red).You may eat plain jello or other gelatins (not red) or popsicles (not red).Do NOT drink alcohol on the day before or the day of the procedure.2 Revised 04/2016When to Mix and Drink Your Bowel PrepFollow the instructions on the label. After mixing, place the solution in therefrigerator for a couple of hours before drinking. You may add the flavorpacket that came with the bowel preparation. DO NOT add ice, sugar or anyflavorings to the solution.Morning Appointment (Before 12 noon)Step 1.?Start drinking the bowel preparation at 6 PM the evening before yourcolonoscopy. Drink an 8-oz glass of bowel preparation every 10 minutes for atotal of 8 glasses.?You may continue to drink clear liquids until bedtime.Step 2. The day of the colonoscopy (4 hours before your exam).?Drink an 8-oz glass of bowel preparation every 10 minutes for a total of 8glasses.?You may continue to drink clear liquids up to 2 hours before your exam.If you take aspirin, take it and ALL other prescribed medicines with a sip ofwater on the day of your colonoscopy.Afternoon Appointment (After 12 noon)?Start drinking the bowel preparation at 6 AM the day of your colonoscopy.Drink an 8-oz glass of bowel preparation every 10 minutes. You must finishdrinking the solution by 9 AM.?You may continue to drink clear liquids up to 2 hours before your exam.If you take aspirin, take it and ALL other prescribed medicines with a sip ofwater on the day of your colonoscopy.Colonoscopy under conscious sedation usingGolytely. .Contact Information: If you are unable to keep your appointment or have anyquestions about the instructions,please call the facility where the procedure is being performed. Call betweenthe hours of 8:00 AM and 5:00 PM. If you are calling after 5:00 PM, please callNurse power electronics research engineer at [phone].[facility] [address] [place] [address] [phone] # [id number] 04/2016 3Jtatyana Swanson MD 07/18/2016 10:12 AM SignedChief ComplaintPatient presents with: PhysicalHPIShitai Pal is a 75 year old female who presents here today for follow-up ofHTN, lipid, hypothyroidis. .Long time awareness of high chol with statin intolerance.BP has been well controlled , elev creatininie this time on labs. Patient deniesany exertional chest pain, dyspnea, palpitations, syncope, orthopnea, edema orparoxysmal nocturnal dyspnea.Hypothyroidism. She has been taking about 6 pills per week of the 112 dose aswe planned do cut the dose a bit. No thyroid symptoms.Past medical history, appointments, medications, allergies reviewed.Previous Medical HistoryPAST MEDICAL HISTORYDiagnosis Date- Diverticulosis of colon (without mention of hemorrhage)- Mixed hyperlipidemia- Unspecified constipation- Unspecified hypothyroidismPrevious Surgical HistoryPAST SURGICAL HISTORYNo date: DELIVERY ONLY Comment: , low zhyoykyu98/8/05: COLONOSCOP W / OR W/O [facility] Comment: ColonoscopyNo date: LIGATE FALLOPIAN TUBE Comment: Tubal ligationNo date: REMV CATARACT EXTRACAP,INSERT LENS Comment: Cataract RemovalFamily HistoryFAMILY HISTORY Cancer Mother Comment: CERVICAL Hypertension Mother Hypertension Father Diabetes FatherPatient AllergiesALLERGIESAllergen Reactions- Adhesive- Grifulvin V [Griseo*- Niaspan [Niacin] GI Upset Burning in stomach.- Cyxshzk-Fxp-Wzb Red* IntoleranceCurrent MedicationsCurrent Outpatient Prescriptions on File Prior to Visit:Cholecalciferol, Vitamin D3, 1,000 unit cap Take 1 capsule by mouth once daily.Clobetasol Propionate (CLOBEX) 0.05 % TOPICAL Sham Apply to affected area.Glucosamine- Chondroit-Vit C-Mn (GLUCOSAMINE CHONDROITIN MAXSTR) 500-400 mg ORALCap Take one(1) capsules three( 3) times daily..COMPOUNDED PRESCRIPTION vinpocetine 10 mg - 1 dailyPolyethylene Glycol 3350 (MIRALAX) 17 gram/dose ORAL powder Drink a mix of 1scoop in 8 oz of water once daily as needed for constipationCalcium Carb-Mag Hydrox-Simeth (ROLAIDS MULTI-SYMPTOM) 675-135-60 mg ORAL Chewtake 2 tabs as neededFluocinolone-Shower Cap (DERMA-SMOOTHE/FS SCALP OIL) 0.01 % TOPICAL Oil use asdirectedMULTIPLE VITAMIN ORAL TAB Take one(1) tablet daily.CALCIUM 600 + D(3 ) 600 MG-200 UNIT ORAL TAB Take one(1) tablet two(2) timesdaily.MELATONIN 3 MG ORAL TAB HALF TAB DAILYCOMPOUNDED PRESCRIPTION ketamine 10% amitripytline 2% gabapentin 4% nifedipine2% lidocaine 5% in activemax.Apply one to two grams (1/4-1/2 tsp) to affectedarea two to three times dailyOMEGA-3 FATTY ACIDS/FISH OIL (OMEGA 3 FISH OIL ORAL) Take by mouth twicedaily.VIT B COMPLEX 100 CMB #2/ HERBS (VITAMIN B COMPLEX 100 #2-HERBS ORAL) Take bymouth once daily.No current facility-administered medications on file prior to visit.Social HistorySocial History Marital status: Spouse name: Years of education: Number of children:Social History Main Topics Smoking status: Never Smoker Alcohol use: No Drug use: No Sexual activity: Yes Partners with: MaleReview of SymptomsROS:General: Feels well, no weight changes, fever, chills.HEENT: No sinus congestion, earache, sore throat.Cardiac: No chest pain, palpitations, shortness of breathResp: No cough, wheeze.GI: No reflux symptoms, food intolerance, bowel changes.: No urinary frequency, dysuria.MS: No pain or joint complaints.PHYSICAL EXAMINATIONBP 128/76 (BP Site : Left Arm, BP Position: Sitting, BP Cuff Size: RegularAdult) Pulse 72 Temp 36.3 ?C (97.4 ?F) (Left Tympanic) Resp 16 Ht 163.8cm (5' 4.5ANDquot;) Wt 69 kg (152 lb 1.9 oz) BMI 25.71 kg /e5Qphserl: Alert and oriented, no distress, pleasant and cooperative.Ears normal. Throat and pharynx normal. Neck supple. No adenopathy or masses inthe neck or supraclavicular regions. Sinuses non tender. Heart: Regular,normal S1 and S2, no murmurs, rubs, or gallopsLungs: Clear to auscultation bilaterallyAbdomen: BenignExtremities: Feet/ankles without edema, posterior tibial pulses full andsymmetricalHealth Maintenance ListTETANUS due on 07/09/2008COLORECTAL CANCER SCREENING,SEE MODIFIER due on 01/14/2015INFLUENZA(Season Ended) due on 11/07/2016DIABETES SCREEN due on 07/12/2019LIPID SCREEN due on 2BONE DENSITY CompletedZOSTAVAX CompletedADULT PREVNAR-13 CompletedPNEUMOVAX AGE 65 AND OVER WITH 5YR LOOKBACK CompletedData reviewedLabs. Based on your age, race, gender, blood pressure, cholesterol, diabetesand smoking status, your risk for having a cardiovascular event such as astroke or heart attack is 21 %. Current guidelines suggest lipid loweringmedication at a risk of 7.5%.Assessment/Plan:(E03.9) Acquired hypothyroidism (primary encounter diagnosis)Comment: stable on med.Plan: TSH BLD See order.(I10) Essential hypertensionComment:Plan: LIPID PANEL BASIC, ramipril (ALTACE) 10 mg capsule, metoprolol succinate ER (TOPROL XL) 50 mg 24 hr tablet, DISCONTINUED: ramipril ( ALTACE) 10 mg capsule, DISCONTINUED: metoprolol succinate ER (TOPROL XL) 50 mg 24 hr tablet Creatinine elevated.(E78.00) Pure hypercholesterolemiaComment:Plan: COMP METABOLIC PANEL, LIPID PANEL BASIC(Z12.11) Special screening for malignant neoplasms, colonComment:Plan: COLONOSCOPY SCRN NOT HIGH RISK Routine.Signed Prescriptions Disp Refills peg 3350-electrolytes ( COLYTE) 240-22.72-6.72 -5.84 gram solution 4000 mL 0 Sig: Take 4,000 mL by mouth one time only for 1 dose. levothyroxine (SYNTHROID) 100 mcg tablet 90 tablet 3 Sig: Take 1 tablet by mouth daily before breakfast. EDILSON: No ezetimibe (ZETIA) 10 mg tablet 90 tablet 3 Sig: Take 1 tablet by mouth once daily. EDILSON: No ramipril (ALTACE) 10 mg capsule 180 capsule 3 Sig: Take 1 capsule by mouth twice daily. EDILSON: No metoprolol succinate ER (TOPROL XL) 50 mg 24 hr tablet 90 tablet 3 Sig: Take 1 tablet by mouth once daily. EDILSON: NoRTO: bloodwork 3 mos, visit 1 year should be Christina Albarran Zambrano Surg Coord 07/18/2016 12:55 PM Signedplease review patient answered yes to a few questions. Thank youReferring Provider: SELF [[id number]]Allergies As of Date: 07/18/2016 Noted Allergy ReactionADHESIVE 08/24/2008GRIFULVIN V (GRISEOFULVIN MICROSI*11/04/2004NIASPAN (NIACIN) 08/15/2011 8 - GI Upset Comments: Burning in stomach.GEZGWYY-KWE-VXG REDUCTASE INHIBIT*12/19/2009 5 - IntoleranceDate Reviewed: 07/18/2016Reviewed by: Lucinda Araujo Ma - Fully AssessedReason for Visit: Physical [83]Primary Visit Diagnosis:Acquired hypothyroidism [E03.9] Other Visit Diagnoses: Essential hypertension [I10] Pure hypercholesterolemia [E78.00] Special screening for malignant neoplasms, colon [Z12.11]Order(s):COMP METABOLIC PANEL [SQCMP] Order #: [id number] FUTURE LIPID PANEL BASIC [SQLIPB] Order #: [id number] FUTURE TSH BLD [SQTSH] Order #: [id number] FUTURE peg 3350-electrolytes (COLYTE) 240-22.72-6.72 -5.84 gram solutionTake 4,000 mL by mouth one time only for 1 dose.Disp: 4000 mLRfl: 0 COLONOSCOPY SCRN NOT HIGH RISK [[id number]] Order #: [id number] FUTURE levothyroxine (SYNTHROID) 100 mcg tabletTake 1 tablet by mouth daily before breakfast.Disp: 90 tabletRfl: 3 ezetimibe (ZETIA) 10 mg tabletTake 1 tablet by mouth once daily.Disp: 90 tabletRfl: 3 ramipril (ALTACE) 10 mg capsuleTake 1 capsule by mouth twice daily.Disp: 180 capsuleRfl: 3 metoprolol succinate ER (TOPROL XL) 50 mg 24 hr tabletTake 1 tablet by mouth once daily.Disp: 90 tabletRfl: 3Prescriptions as of 07/18/2016 Sig: KRILL OIL 500 MG CAPSULE Take by mouth once daily. CHOLECALCIFEROL (VITAMIN D3) * Take 1 capsule by mouth once * CLOBETASOL 0.05 % SHAMPOO Apply to affected area. QYBQFGHAYIZ-XJXPHQYUX-TFL C-M* Take one(1) capsules three(3)* COMPOUNDED PRESCRIPTION vinpocetine 10 mg - 1 daily POLYETHYLENE GLYCOL 3350 17 G* Drink a mix of 1 scoop in 8 o* CALCIUM CARB- MAG HYDROX-SIMET* take 2 tabs as needed FLUOCINOLONE 0.01 % SCALP OIL* use as directed MULTIPLE VITAMIN TABLET Take one(1) tablet daily. CALCIUM 600 + D(3) 600 MG (1,* Take one(1) tablet two(2) alexandra* MELATONIN 3 MG TABLET HALF TAB DAILY PEG 3350 240 GRAM-ELECTROLYTE * Take 4,000 mL by mouth one ti* LEVOTHYROXINE 100 MCG TABLET Take 1 tablet by mouth daily * EZETIMIBE 10 MG TABLET Take 1 tablet by mouth once d* RAMIPRIL 10 MG CAPSULE Take 1 capsule by mouth twice* METOPROLOL SUCCINATE ER 50 MG* Take 1 tablet by mouth once d* COMPOUNDED PRESCRIPTION ketamine 10% amitripytline 2%* OMEGA 3 FISH OIL ORAL Take by mouth twice daily. 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 A colonoscopy is commonly used to evaluate gastrointestinal symptoms, such as rectal and intestinal bleeding, abdominal pain, or changes in bowel habits. Colonoscopies are also performed in individuals without symptoms to check for colorectal polyps or cancer. A screening colonoscopy is recommended for anyone 50 years of age and older, and for anyone with parents, siblings or children with a history of colorectal cancer or polyps. What Happens Before a Colonoscopy To have a successful colonoscopy, your bowel must be empty so that your physician can clearly view the colon. To do this, it is very important to read and follow all of the instructions given to you at least 2 weeks BEFORE your exam. If your bowel is not empty, your colonoscopy will not be successful and may have to be repeated. If you feel nauseated or vomit while taking the bowel preparation , wait 30 minutes before drinking more fluid and start with small sips of solution. Some activity (such as walking) or a few soda crackers may help decrease the nausea you are feeling. If the nausea persists, please contact nurse acute care nurse practitioner at [phone]. You may experience skin irritation around the anus due to the passage of liquid stools. To prevent and treat skin irritation, you should: ?Apply Vaseline? or Desitin? ointment to the skin around the anus before drinking the bowel preparation medications. These products can be purchased at any drugstore. ?Wipe the skin after each bowel movement with disposable wet wipes instead of toilet paper. These are found in the toilet paper area of the store. ?Sit in a bathtub filled with warm water for 10 to 15 minutes after you finish passing a stool; after soaking, blot the skin dry with a soft cloth, apply Vaseline? or Desitin? ointment to the anal area, and place a cotton ball just outside your anus to absorb leaking fluid. What Happens During a Colonoscopy During a colonoscopy, an experienced physician uses a colonoscope (a long, flexible instrument about 1/2 inch in diameter) to view the lining of the colon. The colonoscope is inserted into the rectum and advanced through the large intestine. If necessary during a colonoscopy, small amounts of tissue can be removed for analysis (a biopsy) and polyps can be identified and entirely removed. In many cases , a colonoscopy allows accurate diagnosis and treatment of colorectal problems without the need for a major operation. Revised 04/2016 5 Colonoscopy under conscious sedation using Golytely. . . ?You are asked to wear a hospital gown and an IV will be started. ?You are given a pain reliever and a sedative intravenously (in your vein). You will feel relaxed and somewhat drowsy. ?You will lie on your left side, with your knees drawn up towards your chest. ?A small amount of air is used to expand the colon so the physician can see the colon londono. ?You may feel mild cramping during the procedure. Cramping can be reduced by taking slow, deep breaths. ? The colonoscope is slowly withdrawn while the lining of your bowel is carefully examined. ?The procedure lasts from 30 minutes to 1 hour. What Happens After a Colonoscopy ?You will stay in a recovery room for observation until you are ready for discharge. ?You may feel some cramping or a sensation of having gas, but this quickly passes. ?If sedation has been given, a responsible family member or friend must drive you home. ?Avoid alcohol, driving, and operating machinery for 24 hours following the procedure. ?Unless otherwise instructed, you may immediately return to your normal diet. We recommend you wait until the day after your procedure to resume normal activities. ?If polyps were removed or a biopsy was taken, the physician performing your colonoscopy will tell you when it is safe to resume taking your blood thinners. ?If a biopsy was taken or a polyp was removed, you may notice a little amount of rectal bleeding for 1 to 2 days after the procedure. If you have a large amount of rectal bleeding, high or persistent fevers, or severe abdominal pain within the next 2 weeks, please go to your local emergency room and call the physician who performed your exam. 6 Revised 04/2016 ? Copyright 0016-7241 [facility]. All rights reserved. Revised 04/2016 Health Information For Patients and the Community Conscious Sedation How to Prepare for Your Colonoscopy Using Golytely, Nulytely, Trilyte or Colyte Preparations IMPORTANT - Please Read These Instructions at Least 2 Weeks Before Your Colonoscopy [place] Instructions: ?Your bowel must be empty so that your doctor can clearly view your colon. Follow all of the instructions in this handout EXACTLY as they are written. If you do NOT follow the directions for when to start drinking the bowel preparation (see next page), your colonoscopy WILL be cancelled. ?Do NOT eat any solid food the ENTIRE day before your colonoscopy. ?Buy your bowel preparation at least 5 days before your colonoscopy. ?Do NOT mix the solution until the day before your colonoscopy. Designated Fine Arts Teacher on the Day of Your Exam A responsible family member or friend MUST come with you to your colonoscopy and REMAIN in the endoscopy area until you are discharged! You are NOT ALLOWED to drive, take a taxi or bus, or leave the Endoscopy Center ALONE. If you do not have a responsible lead driver (family member or friend) with you to take you home, your exam cannot be done with sedation and will be cancelled. Medications Some of the medicines you take may need to be stopped or adjusted before your colonoscopy. You MUST call the doctor who ordered any of the following medicines at least 2 weeks before your colonoscopy. ?Blood thinners -- such as Coumadin? (warfarin), Plavix? (clopidogrel), Ticlid? (ticlopidine hydrochloride), Agrylin? (anagrelide), Xarelto? (Rivaroxaban), Pradaxa? (Dabigatran), Eliquis? ( Apixaban), and Effient? (Prasugrel). ?Insulin or diabetes pills. Please call the doctor that monitors your glucose levels. Your insulin dosage may need to be adjusted due to the diet restrictions required with this bowel preparation. (Please bring your diabetes medicines with you on the day of your procedure.) If you take aspirin, take it and ALL other medications prescribed by your doctor. On the day of your colonoscopy, take your medications with a sip of water. Revised 04/2016 1 Five (5) Days Before Your Colonoscopy ?Do NOT take medicines that stop diarrhea -- such as Imodium?, Kaopectate?, or Pepto Bismol?. ?Do NOT take fiber supplements - - such as Metamucil?, Citrucel?, or Perdiem?. ?Do NOT take products that contain iron -- such as multi-vitamins -- (the label lists what is in the products). ?Do NOT take vitamin E. Buy the prescription bowel preparation solution at your local pharmacy or [facility]. Three (3) Days Before Your Colonoscopy Do NOT eat high-fiber foods -- such as popcorn, beans, seeds (flax, sunflower, quinoa), multigrain bread, nuts, salad/vegetables, or fresh and dried fruit. One (1) Day Before Your Colonoscopy Only drink clear liquids the ENTIRE DAY before your colonoscopy. Do NOT eat any solid foods. Drink at least 8 ounces of clear liquids every hour after waking up. The clear liquids you can drink include: ?water, apple, or white grape juice; broth; coffee or tea (without milk or creamer); clear carbonated beverages such as jalyn bishnu or lemon-blue lake soda; Gatorade? or other sports drinks (not red); Lit-Aid? or other flavored drinks (not red). You may eat plain jello or other gelatins (not red) or popsicles (not red). Do NOT drink alcohol on the day before or the day of the procedure. 2 Revised 04/2016 When to Mix and Drink Your Bowel Prep Follow the instructions on the label. After mixing, place the solution in the refrigerator for a couple of hours before drinking. You may add the flavor packet that came with the bowel preparation. DO NOT add ice, sugar or any flavorings to the solution. Morning Appointment (Before 12 noon) Step 1. ?Start drinking the bowel preparation at 6 PM the evening before your colonoscopy. Drink an 8-oz glass of bowel preparation every 10 minutes for a total of 8 glasses. ?You may continue to drink clear liquids until bedtime. Step 2. The day of the colonoscopy (4 hours before your exam). ?Drink an 8-oz glass of bowel preparation every 10 minutes for a total of 8 glasses. ?You may continue to drink clear liquids up to 2 hours before your exam. If you take aspirin, take it and ALL other prescribed medicines with a sip of water on the day of your colonoscopy. Afternoon Appointment (After 12 noon) ? Start drinking the bowel preparation at 6 AM the day of your colonoscopy. Drink an 8-oz glass of bowel preparation every 10 minutes. You must finish drinking the solution by 9 AM. ?You may continue to drink clear liquids up to 2 hours before your exam. If you take aspirin, take it and ALL other prescribed medicines with a sip of water on the day of your colonoscopy.Colonoscopy under conscious sedation using Golytely. . Contact Information: If you are unable to keep your appointment or have any questions about the instructions, please call the facility where the procedure is being performed. Call between the hours of 8:00 AM and 5:00 PM. If you are calling after 5:00 PM, please call Nurse power electronics research engineer at [phone]. [facility] [address] [place] [id number] Index # [id number] Revised 04/2016 3Prescriptions ordered this encounter Disp Refills Start End LEVOTHYROXINE 100 MCG TABLET 90 t* 3 07/18/2016 07/18/2016 Route: ORAL Sig: Take 1 tablet by mouth daily before breakfast. Disc: Erroneous entry EZETIMIBE 10 MG TABLET 90 t* 3 07/18/2016 07/18/2016 Route: ORAL Sig: Take 1 tablet by mouth once daily. Disc: Erroneous entry RAMIPRIL 10 MG CAPSULE 180 * 3 07/18/2016 07/18/2016 Route: ORAL Sig: Take 1 capsule by mouth twice daily. Disc: Erroneous entry METOPROLOL SUCCINATE ER 50 MG TABLET* 90 t* 3 07/18/2016 07/18/2016 Route: ORAL Sig: Take 1 tablet by mouth once daily. Disc: Erroneous entry PEG 3350 240 GRAM-ELECTROLYTES 22.72* 4000* 0 07/18/20162016 Route: ORAL Sig: Take 4,000 mL by mouth one time only for 1 dose. LEVOTHYROXINE 100 MCG TABLET 90 t* 3 07/18/2016 Class: [employer] Route: ORAL Sig: Take 1 tablet by mouth daily before breakfast. EZETIMIBE 10 MG TABLET 90 t* 3 07/18/2016 Class: [employer] Route: ORAL Sig: Take 1 tablet by mouth once daily. RAMIPRIL 10 MG CAPSULE 180 * 3 07/18/2016 Class: [employer] Route: ORAL Sig: Take 1 capsule by mouth twice daily. METOPROLOL SUCCINATE ER 50 MG TABLET* 90 t* 3 07/18/2016 Class: [employer] Route: ORAL Sig: Take 1 tablet by mouth once daily.Medications Discontinued During This Encounter levothyroxine (SYNTHROID ) 112 mcg ta* 90 t* 3 10/26/2015 07/18/2016 Route: ORAL Sig: Take 1 tablet by mouth once daily. TAKE ON AN EMPTY STOMACH. Disc: Dosage adjustment ramipril (ALTACE) 10 mg capsule 180 * 1 01/12/2016 07/18/2016 Route: ORAL Sig: Take 1 capsule by mouth twice daily. Disc: Reason for discontinue is not on file. metoprolol succinate ER (TOPROL XL) * 90 t* 1 01/12/2016 07/18/2016 Route: ORAL Sig: Take 1 tablet by mouth once daily. Disc: Reason for discontinue is not on file. levothyroxine (SYNTHROID) 100 mcg ta* 90 t* 3 201607/18/2016 Route: ORAL Sig: Take 1 tablet by mouth daily before breakfast. Disc: Erroneous entry ezetimibe (ZETIA) 10 mg tablet 90 t* 3 07/18/2016 07/18/2016 Route: ORAL Sig: Take 1 tablet by mouth once daily. Disc: Erroneous entry ramipril (ALTACE) 10 mg capsule 180 * 3 07/18/2016 07/18/2016 Route: ORAL Sig: Take 1 capsule by mouth twice daily. Disc: Erroneous entry metoprolol succinate ER (TOPROL XL) * 90 t* 3 07/18/2016 07/18/2016 Route: ORAL Sig: Take 1 tablet by mouth once daily. Disc: Erroneous entryFollow-up and Disposition History RecordedEncounter Number: [id number] Status:Closed by JUAN SWANSON MD on 07/18/16 COMP METABOLIC PANEL Collected: 07/11/2016 Status: F Source: [place] 8:53 AM [facility] REPOSITORY TYPE CODE TESTS RESULT OUT OF REFERENCE UNITS RANGE LAB TP 6.3-8.0 g/dL Protein, Total 7.4 LAB ALB 3.9-4.9 g/dL Albumin 4.3 LAB CA 8.5-10.2 mg/dL Calcium, Total 9.8 LAB TBIL 0.2-1.3 mg/dL Bilirubin, 0.4 Total LAB ALKP 32-117 U/L Alkaline 54 Phosphatase LAB AST 13-35 U/L AST 24 LAB GLU 74-99 mg/dL Glucose 96 Result Comment: The [place] [employer] (ADA) provides guidance for cutoff values for fasting glucose and random glucose. The ADA defines fasting as no caloric intake for at least 8 hours. Fasting plasma glucose results between 100 to 125 mg/dL indicate increased risk for diabetes (prediabetes).Fasting plasma glucose results greater than or equal to 126 mg/dL meet the criteria for diagnosis of diabetes. In the absence of unequivocal hyperglycemia, results should be confirmed by repeat testing. In a patient with classic symptoms of hyperglycemia or hyperglycemic crisis, random plasma glucose results greater than or equal to 200 mg/dL meet the criteria for diagnosis of diabetes.Reference: Standards of Medical Care in Diabetes 2016 , [place] [employer]. Diabetes Care. 2016.39(Suppl 1). LAB BUN 7-21 mg/dL BUN 18 LAB CRET High 0.58-0.96 mg/dL Creatinine 1.21 LAB NA 136-144 mmol/L Sodium 138 LAB K 3.7-5.1 mmol/L Potassium 4.4 LAB CL 97-105 mmol/L Chloride 101 LAB CO2 22-30 mmol/L CO2 26 LAB AGAP 9-18 mmol/L Anion Gap 11 LAB ALT 7-38 U/L ALT 13 LAB GFRAA eGFR- Amer. 52 LAB GFRNAA . eGFR-All Other Races 43 Result Comment: eGFR (Estimated GFR) Units of measure: mL/min/1.73 meters squaredeGFR is derived from the reexpressed MDRD Study equation using the following parameters: serum creatinine, age, gender and race. The creatinine assay has been calibrated to be traceable to IDMS.An eGFR <60 mL/min/1.73m2 for >3 months is consistent with chronic kidney disease. Refer to KDOQI guidelines for clinical interpretation.In patients with unstable renal function, e.g. those with acute kidney injury, the eGFR may not accurately reflect actual GFR. Performed By: #### CMP, LIPB, TSH ####[facility], [place] [phone] LIPID PANEL, BASIC Collected: 07/11/2016 Status: F Source: [place] [address]:53 AM [facility] REPOSITORY TYPE CODE TESTS RESULT OUT OF REFERENCE UNITS RANGE LAB TRIGLY 30-149 mg/dL Triglyceride 93 LAB CHOL High 100-199 mg/dL Cholesterol 277 LAB HDL >55 mg/dL HDL-Cholesterol 70 LAB VLDL 6-40 mg/dL VLDL Cholesterol 19 LAB LDL High 60-129 mg/dL LDL-Cholesterol 188 LAB FT hrs Fasting Time 14 LAB TCHDL 1.00-5.00 TC:HDL Ratio 3.96 LAB LDLHDL 0.50-3.55 LDL:HDL Ratio 2.69 LAB NONHDL High 90-159 mg/dL Non HDL 207 Cholesterol Performed By: #### CMP, LIPB, TSH ####[facility], [place] [phone] TSH Collected: 07/11/2016 Status: F Source: [place] 8:53 AM [facility] REPOSITORY TYPE CODE TESTS RESULT OUT OF RANGE REFERENCE UNITS LAB TSH 0.400-5.500 uU/mL TSH 1.040 Performed By: #### CMP, LIPB, TSH ####[facility] [address], [place] [phone] CNCO Observed: 05/30/2016 Status: COMPLETED Source: [place] 12:00 AM [facility] REPOSITORY Letter TextPhone: Shmanda [address] [place] [address]CCF #: [id number] ,Due to a change in the provider's schedule it has been necessary toreschedule your Appointment.Your original appointment was scheduled for 07/11/16 at 2 PM with Karsten Hudson MD.Your new appointment is now scheduled on 07/18/16 at 820 PM with Karsten Hudson MD.If this new appointment is not convenient for you, please contact our officeat [phone].Thank you for choosing the [facility] as your Healthcare Provider.Sincerely,Family MedicineAppointment Office ALLERGIES ALLERGIES DATE TYPE / NAME / CODE REACTION SEVERITY SOURCE CODE 04/27/2017 Drug griseofulvin/F0060 Unknown Unknown [place] Allergy/41 62615(RXNORM) [facility] [id number]([facility]) Repository 04/27/2017 Drug adhesive/[id number] Rash Unknown [place] Allergy/41 5(RXNORM) Community [id number]([facility] OMED CT) Repository 04/27/2017 Drug latex/[id number](R Unknown Unknown [place] Allergy/41 XNORM) Community 8258981([facility] OMED CT) Repository 08/15/2011 [facility] [address] [place] [id number]( Repository OMED CT) 12/19/2009 Drug RARLYYZ-ANX-VOH INTOLERANCE [facility] Class/4195 REDUCTASE [place] [address](SNOM INHIBITORS Repository ED CT) 08/24/2008 DRUG ADHESIVE [facility]/ [address] [place] [id number]( Repository OMED CT) 11/04/2004 DRUG/20789 GRISEOFULVIN [facility] 1003(SNOME MICROSIZE [place] D CT) Repository ENCOUNTERS ENCOUNTERS ADMIT/DISCHARGE ACCOUNT ADMITTING ENCOUNTER LOCATION SOURCE NUMBER CLASS 05/04/2017 [id number] Sandor, Inpatient [facility] ing:GM9Clmd: Repository VR564Gyl: 1 04/23/2017 [id number] [facility] ing:LAB Repository 03/26/2017 [id number] Ambulatory [facility] ing:LAB Repository 03/05/2017 [id number] Ambulatory [facility] ing:LAB Repository 03/05/2017 [id number] Ambulatory BMSBuilding:W [facility] Repository 11/17/2016/11/19/19 [id number] Ambulatory [address] Repository 10/21/2016/10/22/19 [id number] Ambulatory [address] Repository 08/19/2016/08/20/19 [id number] BRIGID, [facility]ulatory [place] [address] [facility] 07/31/2016/08/06/19 [id number] Ambulatory [address] Repository 07/18/2016/07/19/19 [id number] Ambulatory [address] Repository 07/11/2016 [id number] Ambulatory [facility] Repository PAYERS PAYERS ENCOUNTER GUARANTOR PAYER SUBSCRIBER SOURCE 05/04/2017 JERICHO ESCALERAW2648 Primary LUCERO BILLY, Insurance:AETNA GRAWDOB: [place] [address]Hgu: MCRPolicy Number: [id number] Hospital [id number] Repository (HP) Date:1968-84-[address], [place] [address]BK: 05/04/2017 Secondary NOT GIVENUNK Vladimir Insurance:SELF PAY [facility] Number: Effective Repository Date:2017-04-23 04/23/2017 JERICHO ESCALERAW2648 Primary LUCERO BILLY, Insurance:AETNA GRAWDOB: [facility] [place] [id number][facility]: [id number] [facility] [id number] Repository (HP) Date:4401-54-34[address], [place] [address]TY: 04/23/2017 Secondary NOT GIVENUNK Vladimir Insurance:SELF PAY [facility] Number: Effective Repository Date:2017-04-23 03/26/2017 JERICHO ESCALERAW2648 Primary LUCERO BILLY, Insurance:AETNA GRAWDOB: [facility] [place] [id number]: [facility]Policy Number: [id number] Hospital [id number] Repository (HP) Date:9693-86-89[address], [place] [address]AA: 03/26/2017 Secondary NOT GIVENUNK [place] Insurance:SELF PAY [facility] Number: Effective Repository Date:2017-03-26 03/05/2017 JERICHO [id number] Primary LUCERO BILLY, Insurance:AETNA GRAWDOB: [facility] [place] [id number]: MCRPolicy Number: [id number] Hospital [id number] Repository (HP) Date:7016-54-02[address] [place] [address]AS: 03/05/2017 Secondary NOT GIVENUNK [place] Insurance:SELF PAY [facility] Number: Effective Repository Date:2017-03-05 03/05/2017 JERICHO [place] [id number] Primary LUCERO Gilbert MARIAJOSE, Insurance:AETNA GRAWDOB: [facility] [address]Xoc: [facility] Number: [id number] Hospital [id number] Repository () Date:2110-06-21CC [address] [place] [address]SG: 03/05/2017 Secondary NOT GIVENUNK [place] Insurance:SELF PAY [facility] Number: Effective Repository Date:2017-03-05
== END ==
PROVIDERS: Anesthesiology; Family Provider Family Medicine; PCP Family Medicine; Visit Provider Orthopaedic Surgery
DX: Z53.9 Procedure and treatment not carried out, unspecified reason (principal)
CPT/HCPCS: 80048; 80076; 84443; 85027; 85610; 85730; 87081

== ENCOUNTER → 2017-04-23 14:15 | Outpatient (CLI) | payer MEDICARE, SELFPAY | PROVIDERS: Family Provider Family Medicine; PCP Family Medicine; Visit Provider Physician Assistant | DX: Z53.9 Procedure and treatment not carried out, unspecified reason (principal) ==

== ENCOUNTER 2017-05-04 07:57 | Inpatient (IN) | payer MEDICARE, SELFPAY ==
[2017-05-04] VITALS (11 sets, daily range): BP systolic 110–141; BP diastolic 58–86; PULSE 69–86; RESP 16–18; TEMP 36.2–36.8; O2SAT 93–99; BMI 25.9
[2017-05-04] MEDS: Celecoxib 200 MG Capsule 400 MG PO (07:00)
[2017-05-04] MEDS: oxyCODONE HCl Cr 10 MG Tablet PO (09:14)
[2017-05-04] MEDS: Acetaminophen 500 MG Tablet 1000 MG PO ×3 (09:15→21:53)
[2017-05-04] MEDS: Cefazolin 2 GM in 0.9% Normal Saline 100 ML IV (10:06)
--- NOTE | 2017-05-04 13:34 | OP.PCM_ITS ---
Report of Operation Date of Procedure: 05/04/17 Pre-Operative Diagnosis: Severe end-stage osteoarthritis right knee Post-Operative Diagnosis: Severe end-stage osteoarthritis right knee Surgery/Procedure Performed:: Total knee arthroplasty right Description of Surgical Findings:: Periarticular osteophytes, eburnation of bone tricompartmentally consistent with severe osteoarthritis external grinder: Jennifer Saez Type of Anesthesia:: Spinal Anesthesiologist: James Peter Special Medications: txa Specimen's removed: Bone and soft tissue Estimated Blood Loss (mL): 100 Fluids Replaced: See anesthesia report Description of Procedure: Implants: Ana Luisa triathlon size 5 posterior stabilized femur, 4 tibia, 32 patella all cemented with Simplex. 11 mm posterior stabilized articulating surface Indications: Patient has severe end-stage osteoarthritis diagnosed via x-rays in the knee. They have failed all forms of conservative measures including activity modification, injections, anti-inflammatories, use of assistive device. The patient has pain that affects on a daily basis and prevents him from doing things that they enjoyed. They have elected to undergo the above procedure. The risks of the procedure were discussed at length and their questions were answered. Procedure description: The patient was greeted in the preoperative area. The right knee was then marked with a surgical marker. Patient was then taken to or [address]. They were administered a dose of antibiotics as well as tranexamic acid. Once adequate anesthesia was obtained and airway was secured to placed in supine position on the operating room table. A well-padded tourniquet was placed on the affected extremity. Leg was then prepped and draped in the usual sterile fashion from the knee down. Ioban was used on the skin. Surgical timeout was then performed and confirmed with all present. Six-inch Esmarch was used to examine the limb and tourniquet was then inflated to 250 mmHg. A longitudinal incision was then planned and carried out in the anterior aspect of the knee. The dissection was then carried the length of the incision the extensor mechanism was identified. Standard medial parapatellar arthrotomy was then performed revealing severe eburnation of bone and periarticular osteophytes. There is complete loss of cartilage especially in the medial compartment with varus alignment. Anterior fat pad was removed for visualization purposes and the anterior medial aspect of the tibia was skeletonized for exposure to the knee. The knee was then flexed the patella was inverted. Opening reamer was then used in the femur approximately 1 cm anterior to the attachment of the PCL. The intramedullary valgus wand was then placed in the femur set at 5? of valgus. The distal femoral cutting jig was then applied to the femur with anticipated resection of approximately 8 mm. This was then made with a oscillating saw. The sizing guide was then placed referencing off the posterior condyles and also reference off the epicondylar axis. This was measured and the appropriate size 4-in-1 cutting jig was then applied to the distal femur. Anterior posterior cuts were made followed by the anterior and posterior chamfer cuts. These bony pieces and fragments were removed and placed on the back table. Posterior retractor was then utilized and the tibia was subluxed anteriorly. Extramedullary tibial alignment jig was then applied to the tibia referencing off the medial one third of the tibial tubercle the anterior tibial spine the middle aspect of the tibiotalar joint. Also reference off patient's southern ute slope. The tibial cutting jig was then pinned with anticipated resection of 2 mm off of the deficient medial tibial condyle. This cut was made with the oscillating saw. Once this was complete a laminar chocolate coater was utilized in both medial lateral meniscus were removed and a posterior capsular osteophytes were also removed. Posterior capsule release was performed in the posterior capsule as well as the geniculate arteries are treated with the aqua Cabrera. The tibia was incised and the appropriate sized tibial tray was then pinned. The femoral box cutting jig was then applied to the femur and the box was prepared removing a portion of the intercondylar notch. The femoral trial was then placed and the knee was trialed. Full flexion-extension were easily achieved. The knee seemed to balance quite nicely. Any remaining osteophytes were removed at this time. Once this was complete the patella was everted and the Avery patella reaming device was then utilized the patella was then placed in the appropriate jig and reamer was then used to remove approximately 9 mm of the undersurface of the patella. A soft tissue remaining was in the way was removed and patella trial was then placed listed maintain excellent tracking using the no thumbs technique. The tibial tray at this point was punched to accommodate the fins of the final implant. At this point cement was mixed on the back table. The trial components were removed and the knee was copiously irrigated. Did use a cocktail of injection for postoperative pain control. The final components were then cemented in the standard fashion and excess cement was removed with cement removal tools and patellar clamp is placed in the patella. As the cement had cured in full extension tourniquet was deflated and hemostasis was perfect with Bovie cautery as well as the aqua Manus. Needle is once again trialed with different size polyethylenes to ensure the full range of motion was achieved as well as excellent balancing ligamentously was achieved. At this point the knee was copiously irrigated. Final implant was then inserted locking mechanism was engaged and confirmed to be locked. The arthrotomy was then closed with #1 Vicryl aggravate type fashion interrupted. Subcutaneous tissue was closed with 0 Vicryl and surgical herminia were placed in the skin. A occlusive silver impregnated dressing was then applied followed by well-padded sterile dressing secured with an Reed wrap. The patient was taken to the PACU in stable condition. No complications known at this time. Postoperatively we will maintain standard total knee postoperative protocol. - Admit VTE Documentation VTE Present on Admission: Yes VTE Mechan Device Prophylaxis: SCD's, Thigh High RACHNA Hose VTE Pharm Prophylaxis ordered?: Yes
--- NOTE | 2017-05-04 14:26 | PCM.CONS.GEN ---
Problem List (1) HTN (hypertension) Status: Chronic Qualifiers: Hypertension type: essential hypertension Qualified Code(s): I10 - Essential (primary) hypertension (2) Hypothyroidism Status: Chronic Qualifiers: Hypothyroidism type: unspecified Qualified Code(s): E03.9 - Hypothyroidism, unspecified (3) HLD (hyperlipidemia) Status: Chronic Qualifiers: Hyperlipidemia type: unspecified Qualified Code(s): E78.5 - Hyperlipidemia, unspecified (4) Osteoarthritis Status: Chronic Qualifiers: Osteoarthritis location: knee Osteoarthritis type: primary Laterality: right Qualified Code(s): M17.11 - Unilateral primary osteoarthritis, right knee (5) Overweight (BMI 25.0-29.9) Status: Chronic (6) Psoriasis Status: Chronic (7) Chronic constipation Status: Chronic Reason for Consult Date of Consultation: 05/04/17 Reason for Consultation: Medical management History of Present Illness: The patient is a 76 y/o F w/ PMHx: HTN, HLD, Hypothyroidism, Overweight, Psoriasis, Chronic constipation who presents to the [facility] on 05/04/17 for planned R TKR per Dr. Ted Patten secondary to ongoing severe R knee OA w/ failed outpatient conservative therapies and treatments. The patient denies any jannette-operative events or complaints. She notes she has already been up with PT, OT 1 hour following her operative intervention. She notes currently some pain, increased with activity, but still some remaining decreased sensation RLE with edward per her report. She notes daily consumption of miralax with constipation and is requested this agent be continued. Past Medical History Past Medical History (Chronic Problems): Chronic Problems HTN (hypertension) (Chronic) Hypothyroidism (Chronic) HLD (hyperlipidemia) (Chronic) Osteoarthritis (Chronic) Overweight (BMI 25.0-29.9) (Chronic) Psoriasis (Chronic) Chronic constipation (Chronic) Allergies adhesive Allergy (Verified 04/27/17 10:48) Rash griseofulvin [From Grifulvin V] Allergy (Verified 04/27/17 10:48) Unknown latex Allergy (Verified 04/27/17 10:48) Unknown tramadol [From Ultram] Allergy (Verified 05/04/17 09:47) Other Home Medications: Ambulatory Orders Medication Instructions Recorded Calcium Carbonate [Tums] 200 mg PO PRN PRN 03/05/17 Clobetasol Propionate [Clobex] 118 ml TP PRN PRN 03/05/17 Diclofenac Sodium [Pennsaid] 2 gm TP PRN PRN 03/05/17 Ezetimibe [Zetia] 10 mg PO DAILY 03/05/17 Levothyroxine Sodium [Synthroid] 100 mcg PO DAILY 03/05/17 Metoprolol Tartrate [Lopressor 50 mg PO DAILY 03/05/17 (Beta Edward)] Ramipril [Altace] 10 mg PO BID 03/05/17 Psychiatric History: No pertinent psych hx 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 Paternal History Items: - - Father with history of diabetes and high blood pressure. Review of Systems Constitutional: Denies: Chills, Fever, Weight Change HEENT: Denies: Head Aches, Sinus Congestion, Sinus Drainage Cardiovascular: Denies: Chest Pain, Palpitations Respiratory: Denies: Cough, Shortness of breath at rest, Sputum production Gastrointestinal: Reports: Constipation. Denies: Abdominal Pain, Nausea, Vomiting Genitourinary: Denies: Dysuria Musculoskeletal: Reports: Joint stiffness, Joint swelling, Joint Tenderness, Leg Pain. Denies: Joint Pain Skin: Reports: Skin Changes. Denies: Rash, Wounds Neurological: Denies: Numbness, Tingling, Focal weakness Psychiatric: Denies: Anxiety, Depression, Homicidal Ideations, Suicidal Ideations Hematologic/ Lymphatic: Denies: Easy Bruising, Easy Bleeding Subjective: Seated upright in the bedside chair, NAD, notes mild numbness still RLE. Objective: Physical Examination: General: awake, alert, oriented x 3 and cooperative, seated upright in bedside chair, in no apparent distress. Skin: normal color, turgor, no icterus, cyanosis. HEENT: AT/NC, EOMI, PERRLA, MMM, no carotid bruits or JVD noted. Lungs: CTA bilaterally, moderate effort, mild decrease BL bases, no rales, ronchi or wheezing. Heart: Regular rate and rhythm; no gallop, rub audible. Abdomen: soft, overweight, NTTP, ND, normal BS, no HSM. Extremities: no cyanosis, clubbing, mild BL ankle, RLE w/ dressing, cooling blanket in place. Neurological: patient awake, alert, oriented x 3; cognitive function intact; pupils equally reactive to light and accomodation; cranial nerves II-XII grossly normal, moving all 4 extremities but limited LLE given recent OR, still some numbness s/p block, strength accordingly moderately to severely globally decreased. Psychiatric: affect appears normal, no acute evidence of depressive or anxiety feelings. - Physical Exam Vital Signs Temp Pulse Resp BP Pulse Ox 97.3 F L 81 16 127/67 H 98 05/04/17 14:08 05/04/17 14:08 05/04/17 14:08 05/04/17 14:08 05/04/17 14:08 Oxygen Delivery Method Room Air Weight: 151 lb 3.794 oz Body Mass Index (BMI) 25.9 Intake and Output for Last 24 Hours 05/02/17 05/03/17 05/04/17 23:59 23:59 23:59 Intake Total 1800 / 1800 Balance 1800 / 1800 Assessment/Plan The patient is a 76 y/o F w/ PMHx: HTN, HLD, Hypothyroidism, Overweight, Psoriasis, Chronic constipation who presents to the [facility] on 05/04/17 for planned R TKR per Dr. Ted Patten secondary to ongoing severe R knee OA w/ failed outpatient conservative therapies and treatments. (1) Severe Osteoarthritis, R Knee: Failed conservative therapies and treatments, admitted per Dr. Patten for planned R TKR on 05/04/17, post-operative pain management, bowel regimen, DVT Prophylaxis, PT/OT/CM per Orthopedic surgery discretion. (2) Hypertension: Continue home regimen including Toprol, ramipril, PRN hydralazine. (3) Hypothyroidism: Continue home synthroid regimen. (4) Psoriasis: Continue own home regimen clobex. (5) Chronic Constipation: Continue daily miralax and bowel regimen as needed. (6) Hyperlipidemia: Continue home zetia regimen. (7) GERD: Famotidine. (8) DVT Prophylaxis: SCDs, ASA 325 mg BID per Orthopedic surgery discretion. Code Visit Office Visits / Consults: [id number] IP Consult L3
--- NOTE | 2017-05-04 14:30 | CON.PCM_ITS ---
Problem List (1) HTN (hypertension) Status: Chronic Qualifiers: Hypertension type: essential hypertension Qualified Code(s): I10 - Essential (primary) hypertension (2) Hypothyroidism Status: Chronic Qualifiers: Hypothyroidism type: unspecified Qualified Code(s): E03.9 - Hypothyroidism , unspecified (3) HLD (hyperlipidemia) Status: Chronic Qualifiers: Hyperlipidemia type: unspecified Qualified Code(s): E78.5 - Hyperlipidemia , unspecified (4) Osteoarthritis Status: Chronic Qualifiers: Osteoarthritis location: knee Osteoarthritis type: primary Laterality: right Qualified Code(s): M17.11 - Unilateral primary osteoarthritis, right knee (5) Overweight (BMI 25.0-29.9) Status: Chronic (6) Psoriasis Status: Chronic (7) Chronic constipation Status: Chronic Reason for Consult Date of Consultation: 05/04/17 Reason for Consultation: Medical management History of Present Illness: The patient is a 76 y/o F w/ PMHx: HTN, HLD, Hypothyroidism, Overweight, Psoriasis, Chronic constipation who presents to the [facility] on 05/04/17 for planned R TKR per Dr. Ted Patten secondary to ongoing severe R knee OA w/ failed outpatient conservative therapies and treatments. The patient denies any jannette- operative events or complaints. She notes she has already been up with PT, OT 1 hour following her operative intervention. She notes currently some pain, increased with activity, but still some remaining decreased sensation RLE with edward per her report. She notes daily consumption of miralax with constipation and is requested this agent be continued. Past Medical History Past Medical History (Chronic Problems): Chronic Problems HTN (hypertension) (Chronic) Hypothyroidism (Chronic) HLD (hyperlipidemia) (Chronic) Osteoarthritis (Chronic) Overweight (BMI 25.0-29.9) (Chronic) Psoriasis (Chronic) Chronic constipation (Chronic) Allergies adhesive Allergy (Verified 04/27/17 10:48) Rash griseofulvin [From Grifulvin V] Allergy (Verified 04/27/17 10:48) Unknown latex Allergy (Verified 04/27/17 10:48) Unknown tramadol [From Ultram] Allergy (Verified 05/04/17 09:47) Other Home Medications: Ambulatory Orders Medication Instructions Recorded Calcium Carbonate [Tums] 200 mg PO PRN PRN 03/05/17 Clobetasol Propionate [Clobex] 118 ml TP PRN PRN 03/05/17 Diclofenac Sodium [Pennsaid] 2 gm TP PRN PRN 03/05/17 Ezetimibe [Zetia] 10 mg PO DAILY 03/05/17 Levothyroxine Sodium [Synthroid] 100 mcg PO DAILY 03/05/17 Metoprolol Tartrate [Lopressor 50 mg PO DAILY 03/05/17 (Beta Edward)] Ramipril [Altace] 10 mg PO BID 03/05/17 Psychiatric History: No pertinent psych hx [employer] History: No pertinent [employer] history Lives: Spouse/ Significant Other Smoking Status: Never smoker Tobacco Use: Non-smoker Alcohol: Occasional Drugs: None - *Family History Maternal History Items: - - Mother with history of cancer and arthritis. Paternal History Items: - - Father with history of diabetes and high blood pressure. Review of Systems Constitutional: Denies: Chills, Fever, Weight Change HEENT: Denies: Head Aches, Sinus Congestion, Sinus Drainage Cardiovascular: Denies: Chest Pain, Palpitations Respiratory: Denies: Cough, Shortness of breath at rest, Sputum production Gastrointestinal: Reports: Constipation. Denies: Abdominal Pain, Nausea, Vomiting Genitourinary: Denies: Dysuria Musculoskeletal: Reports: Joint stiffness, Joint swelling, Joint Tenderness, Leg Pain. Denies: Joint Pain Skin: Reports: Skin Changes. Denies: Rash, Wounds Neurological: Denies: Numbness, Tingling, Focal weakness Psychiatric: Denies: Anxiety, Depression, Homicidal Ideations, Suicidal Ideations Hematologic/ Lymphatic: Denies: Easy Bruising, Easy Bleeding Subjective: Seated upright in the bedside chair, NAD, notes mild numbness still RLE. Objective: Physical Examination: General: awake, alert, oriented x 3 and cooperative, seated upright in bedside chair, in no apparent distress. Skin: normal color, turgor, no icterus, cyanosis. HEENT: AT/NC, EOMI, PERRLA, MMM, no carotid bruits or JVD noted. Lungs: CTA bilaterally, moderate effort, mild decrease BL bases, no rales, ronchi or wheezing. Heart: Regular rate and rhythm; no gallop, rub audible. Abdomen: soft, overweight, NTTP, ND, normal BS, no HSM. Extremities: no cyanosis, clubbing, mild BL ankle, RLE w/ dressing, cooling blanket in place. Neurological: patient awake, alert, oriented x 3; cognitive function intact; pupils equally reactive to light and accomodation; cranial nerves II-XII grossly normal, moving all 4 extremities but limited LLE given recent OR, still some numbness s/p block, strength accordingly moderately to severely globally decreased. Psychiatric: affect appears normal, no acute evidence of depressive or anxiety feelings. - Physical Exam Vital Signs Temp Pulse Resp BP Pulse Ox 97.3 F L 81 16 127/67 H 98 05/04/17 14:08 05/04/17 14:08 05/04/17 14:08 05/04/17 14:08 05/04/17 14:08 Oxygen Delivery Method Room Air Weight: 151 lb 3.794 oz Body Mass Index (BMI) 25.9 Intake and Output for Last 24 Hours 05/02/17 05/03/17 05/04/17 23:59 23:59 23:59 Intake Total 1800 / 1800 Balance 1800 / 1800 Assessment/Plan The patient is a 76 y/o F w/ PMHx: HTN, HLD, Hypothyroidism, Overweight, Psoriasis, Chronic constipation who presents to the [facility] on 05/04/17 for planned R TKR per Dr. Ted Patten secondary to ongoing severe R knee OA w/ failed outpatient conservative therapies and treatments. (1) Severe Osteoarthritis, R Knee: Failed conservative therapies and treatments , admitted per Dr. Patten for planned R TKR on 05/04/17, post-operative pain management, bowel regimen, DVT Prophylaxis, PT/OT/CM per Orthopedic surgery discretion. (2) Hypertension: Continue home regimen including Toprol, ramipril, PRN hydralazine. (3) Hypothyroidism: Continue home synthroid regimen. (4) Psoriasis: Continue own home regimen clobex. (5) Chronic Constipation: Continue daily miralax and bowel regimen as needed. (6) Hyperlipidemia: Continue home zetia regimen. (7) GERD: Famotidine. (8) DVT Prophylaxis: SCDs, ASA 325 mg BID per Orthopedic surgery discretion. Code Visit Office Visits / Consults: 11671 IP Consult L3
[2017-05-04] MEDS: Lactated Ringers 1,000 ML 125 ML IV (16:30)
[2017-05-04] MEDS: Aspirin 325 MG Tablet PO (16:31)
[2017-05-04] MEDS: Cefazolin 1 GM/50 ML BAG IV (17:54)
[2017-05-04] MEDS: Polyethylene Glycol 3350 17 GM PACKET PO (19:28)
[2017-05-04] MEDS: Ramipril 10 MG Capsule PO (21:53)
[2017-05-04] MEDS: Senna/Docusate Sodium 1 Tablet 2 TABLET PO (21:53)
[2017-05-04] MEDS: 0.9% NaCl Peripheral Flush Adult/Peds IV (21:55)
[2017-05-05] MEDS: Cefazolin 1 GM/50 ML BAG IV (01:54)
[2017-05-05 01:56] VITALS: BP 131/67; PULSE 71; RESP 18; TEMP 36.9; O2SAT 97
[2017-05-05] MEDS: Levothyroxine 100 MCG Tablet PO (05:25)
[2017-05-05] MEDS: Acetaminophen 500 MG Tablet 1000 MG PO ×2 (05:25→14:31)
[2017-05-05 06:21] LABS: Hematocrit 30.7 % (37-47); Hemoglobin 10.1 g/dl (12.0-15.0); Mean Corp Hgb Conc 32.9 g/gl (32-36); Mean Corpuscular Hgb 29.4 pg (27.0-32.0); Mean Corpuscular Volume 89.5 fL (81-99); Mean Platelet Vol. 10.5 fl (6.2-12.0); Platelet Count 201 K/mm3 (150-450); RBC Distribution Width CV 13.8 % (11.6-14.6); RBC Distribution Width SD 45.1 fl (35.1-43.9); Red Blood Count 3.43 M/mm3 (4.2-5.4); White Blood Count 10.9 K/mm3 (4.4-11.0)
[2017-05-05 06:23] LABS: Scan Indicated on CBC? Y/N NO
[2017-05-05 06:42] LABS: Anion Gap 8 (5-15); BUN 15 mg/dL (7-18); BUN/Creat Ratio 15.1 RATIO (10-20); Calcium,Total 8.5 mg/dL (8.5-10.1); Chloride 106 mmol/L (98-107); Creatinine, Serum 0.99 mg/dL (0.55-1.02); EST Glomerular Filtration Rate 58 mL/min (>60); Est Glom Filt Rate - Afr Amer 70 mL/min (>60); Estimated Creatinine Clearance 41.75 ml/min; Glucose 114 mg/dL (74-106); Magnesium 2.1 mg/dL (1.6-2.6); Potassium 4.1 mmol/L (3.5-5.1); Sodium Level 141 mmol/L (136-145)
--- NOTE | 2017-05-05 07:03 | PCM.PN.ORT ---
Subjective: Lucero is doing very well this morning. She denies any pain. She has been working with therapy and she is currently sitting at bedside Objective: Patient is neurovascularly intact. No calf pain that is identified. Dorsalis pedis pulses 2+. Dressing is in place - Physical Exam Vital Signs Temp Pulse Resp BP Pulse Ox 98.4 F 71 18 131/67 H 97 05/05/17 01:56 05/05/17 01:56 05/05/17 01:56 05/05/17 01:56 05/05/17 01:56 Oxygen Delivery Method Room Air Weight: 151 lb 3.794 oz Body Mass Index (BMI) 25.9 Intake and Output for Last 24 Hours 05/03/17 05/04/17 05/05/17 23:59 23:59 23:59 Intake Total 2725 / 2725 1387 / 1387 Output Total 800 / 800 Balance 2725 / 2725 587 / 587 Laboratory Tests Past 24 Hrs 05/05/17 05/05/17 05:40 05:40 WBC 10.9 RBC 3.43 L Hgb 10.1 L Hct 30.7 L MCV 89.5 MCH 29.4 MCHC 32.9 RDW 13.8 RDW Differential 45.1 H Plt Count 201 MPV 10.5 Sodium 141 Potassium 4.1 Chloride 106 Carbon Dioxide 27.0 Anion Gap 8 BUN 15 Creatinine 0.99 Estim Creat Clear Calc 41.75 Est GFR (MDRD) Af Amer 70 Est GFR (MDRD) Non-Af 58 L BUN/Creatinine Ratio 15.1 Glucose 114 H Calcium 8.5 Magnesium 2.1 Assessment/Plan Postop day 1 right total knee arthroplasty Plan: We will discharge patient home tomorrow. Anticoagulate and pain control as necessary today
--- NOTE | 2017-05-05 08:01 | PCM.PN.HOSP ---
Subjective: Patient with no acute events overnight per self and per nursing report. Patient interested in information regarding possible home therapies which has been directed to Case Management/Social work. She notes tolerating therapies, including session this AM. Pain controlled. Patient denies fevers, chills, nausea, emesis, abdominal pain, chest pain or dyspnea. Objective: Physical Examination: General: awake, alert, oriented x 3 and cooperative, seated upright in bed, in no apparent distress. Skin: normal color, turgor, no icterus, cyanosis, dressing in place RLE, no drainage. HEENT: AT/NC, EOMI, PERRLA, MMM. Lungs: CTA bilaterally, moderate effort, mild decrease BL bases, no rales, ronchi or wheezing. Heart: Regular rate and rhythm; no gallop, rub audible. Abdomen: soft, overweight, NTTP, ND, normal BS. Extremities: no cyanosis, clubbing, mild BL ankle, RLE w/ dressing. Neurological: patient awake, alert, oriented x 3; cognitive function intact; pupils equally reactive to light and accomodation; cranial nerves II-XII grossly normal, moving all 4 extremities but limited RLE given recent OR, strength accordingly moderately to severely globally decreased but improving. Psychiatric: affect appears normal, no acute evidence of depressive or anxiety feelings. Vitals/I&O's: Vital Signs Temp Pulse Resp BP Pulse Ox 98.4 F 71 18 131/67 H 97 05/05/17 01:56 05/05/17 01:56 05/05/17 01:56 05/05/17 01:56 05/05/17 01:56 Oxygen Delivery Method Room Air Weight: 151 lb 3.794 oz Body Mass Index (BMI) 25.9 Intake and Output for Last 24 Hours 05/03/17 05/04/17 05/05/17 23:59 23:59 23:59 Intake Total 2725 / 2725 1387 / 1387 Output Total 800 / 800 Balance 2725 / 2725 587 / 587 Laboratory Results 05/05/17 05:40: WBC 10.9, RBC 3.43 L, Hgb 10.1 L, Hct 30.7 L, MCV 89.5, MCH 29.4, MCHC 32.9, RDW 13.8, RDW Differential 45.1 H, Plt Count 201, MPV 10.5 05/05/17 05:40: Sodium 141, Potassium 4.1, Chloride 106, Carbon Dioxide 27.0, Anion Gap 8, BUN 15, Creatinine 0.99, Estim Creat Clear Calc 41.75, Est GFR (MDRD) Af Amer 70, Est GFR (MDRD) Non-Af 58 L, BUN/Creatinine Ratio 15.1, Glucose 114 H, Calcium 8.5, Magnesium 2.1 Current Medications Acetaminophen (Tylenol) 1,000 mg PO Q8 [facility] Last Admin: 05/05/17 05:25 Dose: 1,000 mg [facility] Last Admin: 05/04/17 16:31 Dose: 325 mg Calcium Carbonate (Tums) 500 mg PO DAILY PRN PRN Reason: HEARTBURN Ezetimibe (Zetia) 10 mg PO DAILY [facility] Famotidine (Pepcid) 20 mg PO DAILY [facility] Hydralazine HCl (Apresoline) 10 mg IV Q4H PRN PRN PRN Reason: SBP > 160 Ketorolac Tromethamine (Toradol) 15 mg IV Q6H PRN PRN PRN Reason: MILD-MOD PAIN (1-5/10) Levothyroxine Sodium (Synthroid) 100 mcg PO DAILY@0600 [facility] Last Admin: 05/05/17 05:25 Dose: 100 mcg Metoprolol Tartrate (Lopressor (Beta Edward)) 50 mg PO DAILY [facility] Morphine Sulfate (Morphine) 2 - 4 mg IV Q2H PRN PRN PRN Reason: SEVERE PAIN (6-10/10) Morphine Sulfate (Ms Contin) 15 mg PO BID [facility] Last Admin: 05/04/17 21:53 Dose: 15 mg Non-Formulary Medication (Clobetasol Propionate [Clobex]) 118 ml TP PRN PRN PRN Reason: shampoo Ondansetron HCl (Zofran) 4 mg IV Q8H PRN PRN PRN Reason: NAUSEA Oxycodone HCl (Oxyir) 5 - 10 mg PO Q4H PRN PRN PRN Reason: MOD-SEVERE PAIN (4-10/10) Polyethylene Glycol (Miralax) 17 gm PO DAILY [facility] Last Admin: 05/04/17 19:28 Dose: 17 gm Promethazine HCl (Phenergan (Ll)) 12.5 mg IM Q6H PRN PRN; Protocol PRN Reason: NAUSEA/VOMITING Ramipril (Altace) 10 mg PO BID [facility] Last Admin: 05/04/17 21:53 Dose: 10 mg Senna/Docusate Sodium (Senokot-S, Maryanne-Colace) 2 tablet PO BID [facility] Last Admin: 05/04/17 21:53 Dose: 2 tablet Sodium Chloride () 5 - 30 ml IV UD PRN PRN Reason: SALINE FLUSH Last Admin: 05/04/17 21:55 Dose: 10 ml Assessment/Plan The patient is a 76 y/o F w/ PMHx: HTN, HLD, Hypothyroidism, Overweight, Psoriasis, Chronic constipation who presents to the [facility] on 05/04/17 for planned R TKR per Dr. Ted Patten secondary to ongoing severe R knee OA w/ failed outpatient conservative therapies and treatments. (1) Severe Osteoarthritis, R Knee: Failed conservative therapies and treatments, admitted per Dr. Patten for planned R TKR on 05/04/17, post-operative pain management, bowel regimen, DVT Prophylaxis, PT/OT/CM per Orthopedic surgery discretion. Tolerating therapies well and pain controlled. Interested in possible home therapies which was directed to CM/SW. Amenable to discharge to home once felt appropriate per Orthopedic Surgery primary service, likely 05/06/17 AM. (2) Hypertension: Continue home regimen including Toprol, ramipril, PRN hydralazine. (3) Hypothyroidism: Continue home synthroid regimen. (4) Psoriasis: Continue own home regimen clobex. (5) Chronic Constipation: Continue daily miralax and bowel regimen as needed. (6) Hyperlipidemia: Continue home zetia regimen. (7) GERD: Famotidine. (8) DVT Prophylaxis: SCDs, ASA 325 mg BID per Orthopedic surgery discretion. Code Visit Inpatient E&M: 78017 Subs Hosp L2
[2017-05-05 08:31] VITALS: PULSE 65
[2017-05-05] MEDS: Metoprolol Tartrate 50 MG Tablet PO (08:31)
[2017-05-05] MEDS: Senna/Docusate Sodium 1 Tablet 2 TABLET PO (08:31)
[2017-05-05] MEDS: Famotidine 20 MG Tablet PO (08:31)
[2017-05-05] MEDS: Ketorolac 15 MG/ML Vial IV ×2 (08:31→17:13)
[2017-05-05] MEDS: Polyethylene Glycol 3350 17 GM PACKET PO (08:31)
[2017-05-05] MEDS: Aspirin 325 MG Tablet PO (08:31)
[2017-05-05] MEDS: Ezetimibe 10 MG Tablet PO (08:34)
[2017-05-05] MEDS: Ramipril 10 MG Capsule PO ×2 (08:34→21:53)
[2017-05-05 08:35] VITALS: BP 103/53; PULSE 65; RESP 16; TEMP 36.4; O2SAT 99
--- NOTE | 2017-05-05 10:37 | CASEMGMT ---
[facility] Face to Face with patient for initial transition planning/care coordination assessment. RN TAVON introduced self and role at [facility]. Patient lyingin bed, alert and oriented. Patient willing to participate in assessment and is able to answer all questions appropriately. Care providers, pharmacy, and demographics verified. See link attached. Patient wishes to discharge home with outpatient therapy set up with [facility]. Patient states her will be providing transportation. Patient states she has no further needs or concerns at this time. CM to follow for discharge planning needs that may arise. Disposition Plan: Patient to discharge home with outpatient therapy, family support, and follow-up plans in place.
[2017-05-05 14:26] VITALS: BP 150/77; PULSE 62; RESP 18; TEMP 36.6; O2SAT 98
[2017-05-05] MEDS: oxyCODONE 5 MG Tablet PO (14:31)
[2017-05-05] MEDS: 0.9% NaCl Peripheral Flush Adult/Peds IV (17:13)
[2017-05-05] MEDS: Ondansetron 4 MG/2 ML Vial IV (17:13)
[2017-05-05 20:10] VITALS: BP 133/68; PULSE 65; RESP 18; TEMP 37; O2SAT 97
[2017-05-05] MEDS: HYDROcodone Bitartrate/Apap 5/325 Tablet PO (21:53)
[2017-05-06] MEDS: HYDROcodone Bitartrate/Apap 5/325 Tablet PO ×3 (02:43→11:46)
[2017-05-06 02:49] VITALS: BP 119/56; PULSE 69; RESP 18; TEMP 36.8; O2SAT 94
[2017-05-06] MEDS: Ondansetron 4 MG/2 ML Vial IV (06:40)
[2017-05-06] MEDS: Levothyroxine 100 MCG Tablet PO (06:40)
[2017-05-06] MEDS: 0.9% NaCl Peripheral Flush Adult/Peds IV (06:40)
[2017-05-06] MEDS: Aspirin 325 MG Tablet PO (08:06)
[2017-05-06 08:30] VITALS: BP 138/79; PULSE 68; RESP 16; TEMP 36.6; O2SAT 99
--- NOTE | 2017-05-06 08:31 | PCM.DC.ORTHO ---
Discharge Diet: No Restrictions Discharge Activity: May Not Drive, May Shower - If occlusive dressing is sealed, Use Walker Ice area for (Minutes): 20 Weight Bearing Status: Weight bearing as tolerated Keep extremity elevated above heart level: Left Leg Call your doctor if your incision/area has: Continuous Slow Oozing, Sudden Increased Bleeding, Increased Pain/ Swelling, Increased Redness, Foul Smelling Discharge Call your doctor if you observe: Fever of 101 or Higher, Coldness, Increased Pain, Numbness or Tingling, Change in Color Change Dressing in (Days):: 7 - OK to get incision wet after removed if no drainage Remove Dressing in (days):: 7 Cleanse incision/area with: Soap & Water - If no drainage after occlusive dressing removed. Allergies/Adverse Reactions: Allergies adhesive Allergy (Verified 04/27/17 10:48) Rash griseofulvin [From Grifulvin V] Allergy (Verified 04/27/17 10:48) Unknown latex Allergy (Verified 04/27/17 10:48) Unknown tramadol [From Ultram] Allergy (Verified 05/04/17 09:47) Other Medications to take at Discharge Calcium Carbonate [Tums] 200 mg PO PRN PRN 03/05/17 Clobetasol Propionate [Clobex] 118 ml TP PRN PRN 03/05/17 Ezetimibe [Zetia] 10 mg PO DAILY 03/05/17 Levothyroxine Sodium [Synthroid] 100 mcg PO DAILY 03/05/17 Metoprolol Tartrate [Lopressor (beta venice)] 50 mg PO DAILY 03/05/17 Ramipril [Altace] 10 mg PO BID 03/05/17 Aspirin 325 mg PO BIDCM #60 tab 05/06/17 Famotidine [Pepcid] 20 mg PO DAILY #14 tab 05/06/17 Hydrocodone Bitart/Apap 5-325 [[place] 5/325] 1 - 2 tablet PO Q4H PRN PRN 7 Days #56 tablet 05/06/17 MorphINE [Ms Contin] 15 mg PO BID 7 Days #20 tablet 05/06/17 Ondansetron [Zofran] 4 mg IV Q8H PRN PRN #14 vial 05/06/17 Polyethylene Glycol 3350 [Miralax] 17 gm PO DAILY packet 05/06/17 Scopolamine Patch 1mg/72hr [Transderm-Scop] 1 patch TD Q3D patch 05/06/17 Senna/Docusate Sodium [Senokot-S] 2 tablet PO BID tablet 05/06/17 The following prescriptions were given: Hydrocodone Bitart/Apap 5-325 [[place] 5/325] 1 - 2 tablet PO Q4H PRN PRN 7 Days #56 tablet PRN Reason: Severe Pain (6-12/16) Ondansetron [Zofran] 4 mg IV Q8H PRN PRN #14 vial PRN Reason: Nausea Famotidine [Pepcid] 20 mg PO DAILY #14 tab Aspirin 325 mg PO BIDCM #60 tab MorphINE [Ms Contin] 15 mg PO BID 7 Days #20 tablet Please Follow Up With: Ted Patten DO When: 2 weeks
--- NOTE | 2017-05-06 08:42 | DCINST_ITS ---
Discharge Diet: No Restrictions Discharge Activity: May Not Drive, May Shower - If occlusive dressing is sealed , Use Walker Ice area for (Minutes): 20 Weight Bearing Status: Weight bearing as tolerated Keep extremity elevated above heart level: Left Leg Call your doctor if your incision/area has: Continuous Slow Oozing, Sudden Increased Bleeding, Increased Pain/ Swelling, Increased Redness, Foul Smelling Discharge Call your doctor if you observe: Fever of 101 or Higher, Coldness, Increased Pain, Numbness or Tingling, Change in Color Change Dressing in (Days):: 7 - OK to get incision wet after removed if no drainage Remove Dressing in (days):: 7 Cleanse incision/area with: Soap & Water - If no drainage after occlusive dressing removed. Allergies/Adverse Reactions: Allergies adhesive Allergy (Verified 04/27/17 10:48) Rash griseofulvin [From Grifulvin V] Allergy (Verified 04/27/17 10:48) Unknown latex Allergy (Verified 04/27/17 10:48) Unknown tramadol [From Ultram] Allergy (Verified 05/04/17 09:47) Other Medications to take at Discharge Calcium Carbonate [Tums] 200 mg PO PRN PRN 03/05/17 Clobetasol Propionate [Clobex] 118 ml TP PRN PRN 03/05/17 Ezetimibe [Zetia] 10 mg PO DAILY 03/05/17 Levothyroxine Sodium [Synthroid] 100 mcg PO DAILY 03/05/17 Metoprolol Tartrate [Lopressor (beta venice)] 50 mg PO DAILY 03/05/17 Ramipril [Altace] 10 mg PO BID 03/05/17 Aspirin 325 mg PO BIDCM #60 tab 05/06/17 Famotidine [Pepcid] 20 mg PO DAILY #14 tab 05/06/17 Hydrocodone Bitart/Apap 5-325 [[place] 5/325] 1 - 2 tablet PO Q4H PRN PRN 7 Days # 56 tablet 05/06/17 MorphINE [Ms Contin] 15 mg PO BID 7 Days #20 tablet 05/06/17 Ondansetron [Zofran] 4 mg IV Q8H PRN PRN #14 vial 05/06/17 Polyethylene Glycol 3350 [Miralax] 17 gm PO DAILY packet 05/06/17 Scopolamine Patch 1mg/72hr [Transderm-Scop] 1 patch TD Q3D patch 05/06/17 Senna/Docusate Sodium [Senokot-S] 2 tablet PO BID tablet 05/06/17 The following prescriptions were given: Hydrocodone Bitart/Apap 5-325 [[place] 5/325] 1 - 2 tablet PO Q4H PRN PRN 7 Days # 56 tablet PRN Reason: Severe Pain (6-12/16) Ondansetron [Zofran] 4 mg IV Q8H PRN PRN #14 vial PRN Reason: Nausea Famotidine [Pepcid] 20 mg PO DAILY #14 tab Aspirin 325 mg PO BIDCM #60 tab MorphINE [Ms Contin] 15 mg PO BID 7 Days #20 tablet Please Follow Up With: Ted Patten DO When: 2 weeks
[2017-05-06] MEDS: Scopolamine 1mg/72hr Patch 1 PATCH TD (09:18)
[2017-05-06] MEDS: Ramipril 10 MG Capsule PO (09:37)
[2017-05-06] MEDS: Famotidine 20 MG Tablet PO (09:37)
[2017-05-06 09:38] VITALS: BP 138/79; PULSE 68
[2017-05-06] MEDS: Ezetimibe 10 MG Tablet PO (09:38)
[2017-05-06] MEDS: Metoprolol Tartrate 50 MG Tablet PO (09:38)
[2017-05-06] MEDS: Polyethylene Glycol 3350 17 GM PACKET PO (09:46)
--- NOTE | 2017-05-06 09:51 | PCM.PN.HOSP ---
Subjective: Patient with no acute events overnight per self and per nursing report. Patient notes pain controlled. She is tolerating therapies and plans discharge to home with outpatient therapies today. Patient denies fevers, chills, nausea, emesis, abdominal pain, chest pain or dyspnea. Objective: Physical Examination: General: awake, alert, oriented x 3 and cooperative, seated upright in bed, NAD. Skin: normal color, turgor, no icterus, cyanosis, dressing in place RLE, no drainage. HEENT: AT/NC, EOMI, PERRLA, MMM. Lungs: CTA bilaterally, moderate effort, mild decrease BL bases, no rales, ronchi or wheezing. Heart: Regular rate and rhythm; no gallop, rub audible. Abdomen: soft, overweight, NTTP, ND, normal BS. Extremities: no cyanosis, clubbing, mild BL ankle, RLE w/ dressing. Neurological: patient awake, alert, oriented x 3; cognitive function intact; pupils equally reactive to light and accomodation; cranial nerves II-XII grossly normal, moving all 4 extremities, strength improved notably, moderate globally decreased. Psychiatric: affect appears normal, no acute evidence of depressive or anxiety feelings. Vitals/I&O's: Vital Signs Temp Pulse Resp BP Pulse Ox 98.3 F 68 18 138/79 H 94 05/06/17 02:49 05/06/17 09:38 05/06/17 02:49 05/06/17 09:38 05/06/17 02:49 Oxygen Delivery Method Room Air Weight: 151 lb 3.794 oz Body Mass Index (BMI) 25.9 Intake and Output for Last 24 Hours 05/04/17 05/05/17 05/06/17 23:59 23:59 23:59 Intake Total 2725 / 2725 1387 / 1387 Output Total 800 / 800 Balance 2725 / 2725 587 / 587 Current Medications Hydrocodone Bitart/Acetaminophen ([place] 5mg-325mg) 1 - 2 tablet PO Q4H PRN PRN PRN Reason: SEVERE PAIN (6-10/10) Last Admin: 05/06/17 06:40 Dose: 2 tablet Aspirin (Aspirin) 325 mg PO BIDCM [facility] Last Admin: 05/06/17 08:06 Dose: 325 mg Calcium Carbonate (Tums) 500 mg PO DAILY PRN PRN Reason: HEARTBURN Ezetimibe (Zetia) 10 mg PO DAILY [facility] Last Admin: 05/06/17 09:38 Dose: 10 mg Famotidine (Pepcid) 20 mg PO DAILY [facility] Last Admin: 05/06/17 09:37 Dose: 20 mg Hydralazine HCl (Apresoline) 10 mg IV Q4H PRN PRN PRN Reason: SBP > 160 Ketorolac Tromethamine (Toradol) 15 mg IV Q6H PRN PRN PRN Reason: MILD-MOD PAIN (1-5/10) Last Admin: 05/05/17 17:13 Dose: 15 mg Levothyroxine Sodium (Synthroid) 100 mcg PO DAILY@0600 [facility] Last Admin: 05/06/17 06:40 Dose: 100 mcg Metoprolol Tartrate (Lopressor (Beta Edward)) 50 mg PO DAILY [facility] Last Admin: 05/06/17 09:38 Dose: 50 mg Morphine Sulfate (Morphine) 2 - 4 mg IV Q2H PRN PRN PRN Reason: SEVERE PAIN (6-10/10) Morphine Sulfate (Ms Contin) 15 mg PO BID [facility] Last Admin: 05/06/17 09:37 Dose: 15 mg Ondansetron HCl (Zofran) 4 mg IV Q8H PRN PRN PRN Reason: NAUSEA Last Admin: 05/06/17 06:40 Dose: 4 mg Polyethylene Glycol (Miralax) 17 gm PO DAILY [facility] Last Admin: 05/06/17 09:46 Dose: 17 gm Promethazine HCl (Phenergan (Ll)) 12.5 mg IM Q6H PRN PRN; Protocol PRN Reason: NAUSEA/VOMITING Ramipril (Altace) 10 mg PO BID [facility] Last Admin: 05/06/17 09:37 Dose: 10 mg Scopolamine HBr (Transderm-Scop) 1 patch TD Q3D [facility] Last Admin: 05/06/17 09:18 Dose: 1 patch Senna/Docusate Sodium (Senokot-S, Maryanne-Colace) 2 tablet PO BID [facility] Last Admin: 05/06/17 09:37 Dose: Not Given Sodium Chloride () 5 - 30 ml IV UD PRN PRN Reason: SALINE FLUSH Last Admin: 05/06/17 06:40 Dose: 10 ml Assessment/Plan The patient is a 76 y/o F w/ PMHx: HTN, HLD, Hypothyroidism, Overweight, Psoriasis, Chronic constipation who presents to the [facility] on 05/04/17 for planned R TKR per Dr. Ted Patten secondary to ongoing severe R knee OA w/ failed outpatient conservative therapies and treatments. (1) Severe Osteoarthritis, R Knee: Failed conservative therapies and treatments, admitted per Dr. Patten for planned R TKR on 05/04/17, post-operative pain management, bowel regimen, DVT Prophylaxis, PT/OT/CM per Orthopedic surgery discretion. Tolerating therapies well and pain controlled. Patient clinically appropriate from medicine standpoint for discharge. Noted plan per Orthopedic surgery for discharge today. (2) Hypertension: Continue home regimen including Toprol, ramipril, PRN hydralazine. (3) Hypothyroidism: Continue home synthroid regimen. (4) Psoriasis: Continue own home regimen clobex. (5) Chronic Constipation: Continue daily miralax and bowel regimen as needed. (6) Hyperlipidemia: Continue home zetia regimen. (7) GERD: Famotidine. (8) DVT Prophylaxis: SCDs, ASA 325 mg BID per Orthopedic surgery discretion. Code Visit Inpatient E&M: 45453 Subs Hosp L2
--- NOTE | 2017-05-06 09:55 | PN_ITS ---
Subjective: Patient with no acute events overnight per self and per nursing report. Patient notes pain controlled. She is tolerating therapies and plans discharge to home with outpatient therapies today. Patient denies fevers, chills, nausea, emesis, abdominal pain, chest pain or dyspnea. Objective: Physical Examination: General: awake, alert, oriented x 3 and cooperative, seated upright in bed, NAD. Skin: normal color, turgor, no icterus, cyanosis, dressing in place RLE, no drainage. HEENT: AT/NC, EOMI, PERRLA, MMM. Lungs: CTA bilaterally, moderate effort, mild decrease BL bases, no rales, ronchi or wheezing. Heart: Regular rate and rhythm; no gallop, rub audible. Abdomen: soft, overweight, NTTP, ND, normal BS. Extremities: no cyanosis, clubbing, mild BL ankle, RLE w/ dressing. Neurological: patient awake, alert, oriented x 3; cognitive function intact; pupils equally reactive to light and accomodation; cranial nerves II-XII grossly normal, moving all 4 extremities, strength improved notably, moderate globally decreased. Psychiatric: affect appears normal, no acute evidence of depressive or anxiety feelings. Vitals/I&O's: Vital Signs Temp Pulse Resp BP Pulse Ox 98.3 F 68 18 138/79 H 94 05/06/17 02:49 05/06/17 09:38 05/06/17 02:49 05/06/17 09:38 05/06/17 02:49 Oxygen Delivery Method Room Air Weight: 151 lb 3.794 oz Body Mass Index (BMI) 25.9 Intake and Output for Last 24 Hours 05/04/17 05/05/17 05/06/17 23:59 23:59 23:59 Intake Total 2725 / 2725 1387 / 1387 Output Total 800 / 800 Balance 2725 / 2725 587 / 587 Current Medications Hydrocodone Bitart/Acetaminophen ([place] 5mg-325mg) 1 - 2 tablet PO Q4H PRN PRN PRN Reason: SEVERE PAIN (6-10/10) Last Admin: 05/06/17 06:40 Dose: 2 tablet Aspirin (Aspirin) 325 mg PO BIDCM [facility] Last Admin: 05/06/17 08:06 Dose: 325 mg Calcium Carbonate (Tums) 500 mg PO DAILY PRN PRN Reason: HEARTBURN Ezetimibe (Zetia) 10 mg PO DAILY [facility] Last Admin: 05/06/17 09:38 Dose: 10 mg Famotidine (Pepcid) 20 mg PO DAILY [facility] Last Admin: 05/06/17 09:37 Dose: 20 mg Hydralazine HCl (Apresoline) 10 mg IV Q4H PRN PRN PRN Reason: SBP > 160 Ketorolac Tromethamine (Toradol) 15 mg IV Q6H PRN PRN PRN Reason: MILD-MOD PAIN (1-5/10) Last Admin: 05/05/17 17:13 Dose: 15 mg Levothyroxine Sodium (Synthroid) 100 mcg PO DAILY@0600 [facility] Last Admin: 05/06/17 06:40 Dose: 100 mcg Metoprolol Tartrate (Lopressor (Beta Edward)) 50 mg PO DAILY [facility] Last Admin: 05/06/17 09:38 Dose: 50 mg Morphine Sulfate (Morphine) 2 - 4 mg IV Q2H PRN PRN PRN Reason: SEVERE PAIN (6-10/10) Morphine Sulfate (Ms Contin) 15 mg PO BID [facility] Last Admin: 05/06/17 09:37 Dose: 15 mg Ondansetron HCl (Zofran) 4 mg IV Q8H PRN PRN PRN Reason: NAUSEA Last Admin: 05/06/17 06:40 Dose: 4 mg Polyethylene Glycol (Miralax) 17 gm PO DAILY [facility] Last Admin: 05/06/17 09:46 Dose: 17 gm Promethazine HCl (Phenergan (Ll)) 12.5 mg IM Q6H PRN PRN; Protocol PRN Reason: NAUSEA/VOMITING Ramipril (Altace) 10 mg PO BID [facility] Last Admin: 05/06/17 09:37 Dose: 10 mg Scopolamine HBr (Transderm-Scop) 1 patch TD Q3D [facility] Last Admin: 05/06/17 09:18 Dose: 1 patch Senna/Docusate Sodium (Senokot-S, Maryanne-Colace) 2 tablet PO BID [facility] Last Admin: 05/06/17 09:37 Dose: Not Given Sodium Chloride () 5 - 30 ml IV UD PRN PRN Reason: SALINE FLUSH Last Admin: 05/06/17 06:40 Dose: 10 ml Assessment/Plan The patient is a 76 y/o F w/ PMHx: HTN, HLD, Hypothyroidism, Overweight, Psoriasis, Chronic constipation who presents to the [facility] on 05/04/17 for planned R TKR per Dr. Ted Patten secondary to ongoing severe R knee OA w/ failed outpatient conservative therapies and treatments. (1) Severe Osteoarthritis, R Knee: Failed conservative therapies and treatments , admitted per Dr. Patten for planned R TKR on 05/04/17, post-operative pain management, bowel regimen, DVT Prophylaxis, PT/OT/CM per Orthopedic surgery discretion. Tolerating therapies well and pain controlled. Patient clinically appropriate from medicine standpoint for discharge. Noted plan per Orthopedic surgery for discharge today. (2) Hypertension: Continue home regimen including Toprol, ramipril, PRN hydralazine. (3) Hypothyroidism: Continue home synthroid regimen. (4) Psoriasis: Continue own home regimen clobex. (5) Chronic Constipation: Continue daily miralax and bowel regimen as needed. (6) Hyperlipidemia: Continue home zetia regimen. (7) GERD: Famotidine. (8) DVT Prophylaxis: SCDs, ASA 325 mg BID per Orthopedic surgery discretion. Code Visit Inpatient E&M: 15270 Subs Hosp L2
[2017-05-06 12:00] VITALS: BP 138/79; PULSE 68; RESP 16; TEMP 36.6; O2SAT 99
== END 2017-05-06 12:43 | disposition home or self-care (01) | DRG 470 ==
PROVIDERS: Family Medicine; Admitting Provider Orthopaedic Surgery; Family Provider Family Medicine; PCP Family Medicine; Visit Provider Orthopaedic Surgery
PROC: 0SRC0J9 Replacement of Right Knee Joint with Synthetic Substitute, Cemented, Open Approach (ICD-10-PCS; CPT 27447; principal; 2017-05-04 09:50)
DX: M17.11 Unilateral primary osteoarthritis, right knee (principal); E03.9 Hypothyroidism, unspecified; I10 Essential (primary) hypertension; L40.9 Psoriasis, unspecified; K59.09 Other constipation; E78.5 Hyperlipidemia, unspecified
CPT/HCPCS: 36415; 80048; 83735; 85027; 97110; 97116; 97162; 97166; 97530; 97535; J7120; A4216; J2405

== ENCOUNTER 2017-09-30 13:34 | Emergency (ER) | payer MEDICARE, SELFPAY ==
[2017-09-30 13:35] VITALS: BP 117/63; PULSE 92; RESP 16; TEMP 37.2; O2SAT 99; BMI 22.3
--- NOTE | 2017-09-30 13:51 | RAD_ITS ---
STUDY: X-RAY - ACUTE ABDOMINAL SERIES REASON FOR EXAM: Female, 76 years old. Colicky pain. TECHNIQUE: Single view of the chest. Supine, 2 view(s) of the abdomen were obtained. COMPARISON: None. FINDINGS: The lungs are clear and expanded. Normal size heart. Normal mediastinum and eduardo. Normal visualized pulmonary arteries. There is atherosclerotic calcification of the aortic arch. There is a non-specific bowel gas pattern. The soft tissue structures of the abdomen and pelvis are unremarkable. There are diffuse degenerative changes of the visualized lumbar spine. RAD/Acute Abdomen Inc Chest IMPRESSION: Nonspecific bowel gas pattern. Electronically Signed: Sandra Fernandes MD at 14:57 EDT Tel , Service support ,
[2017-09-30] MEDS: 0.9% Normal Saline 1,000 ML 125 ML IV (14:13)
[2017-09-30 14:24] LABS: Absolute Lymphocyte Count 0.71 X10^3/ul (0.83-4.51); Absolute Neutrophil Count 8.9 X10^3/uL (2.0-7.7); Basophil# 0.01 X10^3/uL; Basophil% 0.1 % (0-1); Eosinophil# 0.04 X10^3/uL; Eosinophils% 0.4 % (0-5); Hematocrit 33.7 % (37-47); Hemoglobin 10.9 g/dl (12.0-15.0); Lymphocyte # 0.71 X10^3/ul (4.0); Lymphocyte % 6.9 % (19-41); Mean Corp Hgb Conc 32.3 g/gl (32-36); Mean Corpuscular Hgb 28.3 pg (27.0-32.0); Mean Corpuscular Volume 87.5 fL (81-99); Mean Platelet Vol. 9.7 fl (6.2-12.0); Monocyte# 0.71 X10^3/uL; Monocyte% 6.9 % (0-10); Neutrophil # 8.85 X10^3/uL (2.7-7.7); Neutrophil % 85.6 % (47-70); Platelet Count 243 K/mm3 (150-450); RBC Distribution Width CV 13.6 % (11.6-14.6); RBC Distribution Width SD 43.7 fl (35.1-43.9); Red Blood Count 3.85 M/mm3 (4.2-5.4); White Blood Count 10.3 K/mm3 (4.4-11.0)
[2017-09-30 14:31] LABS: POSITIVE COUNT NO; POSITIVE DIFFERENTIAL NO; POSITIVE MORPHOLOGY NO
[2017-09-30 14:40] LABS: Anion Gap 9 (5-15); BUN 20 mg/dL (7-18); BUN/Creat Ratio 17.1 RATIO (10-20); Calcium,Total 8.9 mg/dL (8.5-10.1); Chloride 98 mmol/L (98-107); Creatinine, Serum 1.17 mg/dL (0.55-1.02); EST Glomerular Filtration Rate 48 mL/min (>60); Est Glom Filt Rate - Afr Amer 58 mL/min (>60); Estimated Creatinine Clearance 35.32 ml/min; Glucose 109 mg/dL (74-106); Potassium 3.9 mmol/L (3.5-5.1); Sodium Level 134 mmol/L (136-145)
--- NOTE | 2017-09-30 15:55 | ED.VISSUMM ---
- ER Visit Summary Date of Service: 09/30/17 Chief Complaint: Abdominal pain and nausea and vomiting History of Present Illness: The patient is a 76 F who presents with abdominal pain that started 5 days ago. She states the pain is waxing and waning in nature. It originates in the epigastric area and migrates to the pelvic area. She had one episode of vomiting today and reason she presents. She denies fever, chills night sweats. She denies chest pain or any cardiac symptoms. She denies cough, shortness of breath or difficulty breathing. She denies pleuritic pain. She denies hematemesis, melena hematochezia. She denies dysuria, frequency, urgency or hematuria. She denies history of renal ureterolithiasis. She had a colonoscopy [address] Siddiqui and revealed diverticulosis. Review of systems otherwise negative. Past history of hyper hypertension, hypercholesterolemia and diverticulosis. She also history of osteoarthritis. Past surgical history and colonoscopy Physical Examination: Vital signs are normal. She is afebrile. She appears in no distress. Head is atraumatic normocephalic. Pupils are equal round reactive. Extraocular muscles are intact. TMs are pearly white with landmarks noted. Nares patent with no drainage. Posterior pharynx without erythema or exudate. Uvula is midline. There is no dysphonia or dysphasia. Trachea is midline. There is no stridor with auscultation of the neck. Heart is regular without murmur, gallop or rub. S1 and S2 are normal. Lungs are clear to auscultation with good movement of air bilaterally. Abdomen is soft with vague tenderness and tenderness is not consistent. There is no guarding or rebound tenderness. There is no tympana to percussion. There is no umbilical or inguinal hernia noted. There is no skin lesions noted. She is alert and oriented ?3 with a nonfocal neurologic exam. Test Results: CBC, BMP are remarkable for mild anemia with hemoglobin 10.9 and creatinine of 1.17 respectively. Three-view abdominal x-ray reveals no ossific gas pattern with no evidence of obstruction or free air. Chest portion is unremarkable with no cardiomegaly, mediastinum is normal. Lung parenchyma reveals mild chronic changes. Emergency Department Course and Treatment: To evaluate patient's abdominal pain since she is elderly CBC, BMP and x-rays were obtained. Since there is no guarding or peritoneal findings CT was not obtained. Treatment Plan: Prescription for Bentyl Disposition: Discharged to home with spouse Impression: Abdominal pain with nausea and vomiting This note was generated with [employer] dictation software. It may contain incorrect words, spelling, and punctuation that were not noted in review of the chart prior to signing ED Disposition - Plan for ED Patient: Disposition: Home or Assisted Living Chief Complaint: Abd Pain Instructions: ED Abdominal Pain Unkn Cause Prescriptions: Dicyclomine HCl [Bentyl] 20 mg PO TIDAC #10 cap Referrals: Juan Guaman MD [Primary Care Provider] - 3-5 Days if not improving Additional Instructions: Your prescription was sent to designated pharmacy of choice.
[2017-09-30 16:16] VITALS: BP 126/74; PULSE 59; RESP 16; O2SAT 98
== END 2017-09-30 16:23 | disposition home or self-care (01) ==
PROVIDERS: Emergency Provider Emergency Medicine; Family Provider Family Medicine; PCP Family Medicine
DX: R10.84 Generalized abdominal pain (principal); R11.2 Nausea with vomiting, unspecified; M19.90 Unspecified osteoarthritis, unspecified site
CPT/HCPCS: 74022; 80048; 85025; 96360; 96361; 99283; J7030; A4216

== ENCOUNTER 2017-10-02 07:35 | Emergency (ER) | payer MEDICARE, SELFPAY ==
[2017-10-02 07:35] VITALS: BP 121/84; PULSE 102; RESP 18; TEMP 36.6; O2SAT 98; BMI 22.3
--- NOTE | 2017-10-02 08:03 | CT_ITS ---
STUDY: CT ABDOMEN AND PELVIS WITH CONTRAST REASON FOR EXAM: Female, 76 years old. Lower abdominal pain x1 week RADIATION DOSAGE (If Supplied By Facility): CTDIvol = ( 10.67 ) mGy, DLP = ( 558.13 ) mGycm TECHNIQUE: Transaxial images were obtained from the dome of the diaphragm to the symphysis pubis without oral contrast. 100mL ml of Isovue 300 contrast was administered. Sagittal and coronal images were reconstructed. Individualized dose optimization techniques were used for this CT. COMPARISON: None. FINDINGS: The visualized lung bases are unremarkable. The visualized portions of the heart are within normal limits. Liver is unremarkable aside from a simple cysts which abut each other in the right and left lobes. There is nonspecific gallbladder wall thickening. No demonstrated gallstones or biliary dilatation noted. Normal spleen. Normal pancreas. Normal bilateral adrenal glands. Normal right kidney. Normal left kidney. Normal visualized stomach. Normal small intestine. Scattered colonic diverticulosis is noted, in the sigmoid colon there is thickening of the sigmoid with perisigmoidal inflammatory stranding consistent with acute diverticulitis. There is no demonstrated perforation. There is however thickening of the sigmoid and underlying lesion cannot be excluded. Further evaluation with colonoscopy is recommended once the acute inflammation has resolved. There is non-visualization of the appendix. There is diffuse atherosclerotic calcification of the abdominal aorta, without a demonstrated aneurysm. Normal inferior vena cava. There are scattered subcentimeter mesenteric and retroperitoneal lymph nodes measuring up to 6 mm in short axis dimension. Normal urinary bladder. Uterus is still present, the endometrium cannot be accurately evaluated with CT. No suspicious cystic mass is noted within the pelvis. Normal abdominal wall. There are diffuse degenerative changes of the visualized lumbar spine. CT/Abdomen/Pelvis WITH Contrast IMPRESSION: Acute sigmoid diverticulitis. There is thickening of the sigmoid as well. An underlying lesion cannot be excluded and further evaluation with colonoscopy is recommended once the acute inflammatory changes have resolved. Nonspecific gallbladder wall thickening, there is no CT evidence of gallstones pericholecystic fluid or biliary dilatation. Uterus is still present, the endometrium cannot be accurately evaluated with CT. N.B. : The above information has been verbally conveyed by Gustavo Welsh MD to Wilmer Beal, Covering Physician, on 10/02/2017 10:38:44 (ET). Electronically Signed: Gustavo Welsh MD at 10:41 EDT , Service support ,
--- NOTE | 2017-10-02 08:04 | ED.VISSUMM ---
- ER Visit Summary Date of Service: 10/02/17 Chief Complaint: Abdominal pain History of Present Illness: The patient is a 76 F with 7 days of intermittent abdominal pains, she gets a crampy sharp pain which lasts just a few minutes, however it is quite intense. No diarrhea, no constipation. No fever chills no nausea or vomiting. No back pain. No urinary symptoms. Physical Examination: Not appear in acute distress. Moist mucous membranes, no obvious facial deformity No C-spine tenderness supple neck. Regular rate and rhythm without any obvious murmurs Clear lungs bilaterally speaking in full sentences without any obvious respiratory distress Abdomen soft with diffuse slight tenderness, no guarding rebound, quite soft and quite benign abdomen. Rectal exam does not show any stool at the vault. Moves all extremities without any difficulty or pain. Skin does not show any obvious rashes or lesions, no trauma. Alert oriented ?3 with no gross focal deficit Emergency Department Course and Treatment: Patient is found to have acute diverticulitis, there is some thickening of the colon which is likely reactive since she had a normal colonoscopy a year ago. White counts unremarkable and patient is otherwise not septic and shows no signs of systemic disease. She meets criteria for outpatient treatment with Cipro and Flagyl. Disposition: [Discharge stable condition] Impression: [Acute diverticulitis] This note was generated with [employer] dictation software. It may contain incorrect words, spelling, and punctuation that were not noted in review of the chart prior to signing ED Disposition - Plan for ED Patient: Disposition: Home or Assisted Living Chief Complaint: Abd Pain Diagnosis: Diverticulitis Instructions: ED Diverticulitis Prescriptions: Metronidazole [Flagyl] 500 mg PO Q8H #30 tab Ciprofloxacin [Cipro] 500 mg PO BID #20 tab Referrals: Juan Guaman MD [Primary Care Provider] - 5-7 Days
[2017-10-02 08:31] LABS: Absolute Lymphocyte Count 1.05 X10^3/ul (0.83-4.51); Absolute Neutrophil Count 6.5 X10^3/uL (2.0-7.7); Basophil# 0.02 X10^3/uL; Basophil% 0.2 % (0-1); Eosinophil# 0.13 X10^3/uL; Eosinophils% 1.6 % (0-5); Hematocrit 32.8 % (37-47); Hemoglobin 10.7 g/dl (12.0-15.0); Lymphocyte # 1.05 X10^3/ul (4.0); Lymphocyte % 12.7 % (19-41); Mean Corp Hgb Conc 32.6 g/gl (32-36); Mean Corpuscular Hgb 28.5 pg (27.0-32.0); Mean Corpuscular Volume 87.5 fL (81-99); Mean Platelet Vol. 9.4 fl (6.2-12.0); Monocyte# 0.62 X10^3/uL; Monocyte% 7.5 % (0-10); Neutrophil # 6.45 X10^3/uL (2.7-7.7); Platelet Count 257 K/mm3 (150-450); RBC Distribution Width CV 13.4 % (11.6-14.6); RBC Distribution Width SD 43.1 fl (35.1-43.9); Red Blood Count 3.75 M/mm3 (4.2-5.4); White Blood Count 8.3 K/mm3 (4.4-11.0)
[2017-10-02 08:32] LABS: POSITIVE COUNT NO; POSITIVE DIFFERENTIAL NO; POSITIVE MORPHOLOGY NO
[2017-10-02 08:45] LABS: ALB/GLOB Ratio 0.8 RATIO (0.9-2.4); AST(SGOT) 14 U/L (15-37); Alanine Aminotransfer ALT/SGPT 18 U/L (13-56); Albumin, Serum 3.2 g/dL (3.2-5.0); Alkaline Phosphatase 70 U/L (45-117); Anion Gap 8 (5-15); BUN 10 mg/dL (7-18); BUN/Creat Ratio 10.5 RATIO (10-20); Chloride 101 mmol/L (98-107); Creatinine, Serum 0.95 mg/dL (0.55-1.02); EST Glomerular Filtration Rate 61 mL/min (>60); Est Glom Filt Rate - Afr Amer 73 mL/min (>60); Globulin 3.9 g/dL (2.2-4.2); Glucose 105 mg/dL (74-106); Lipase 115 U/L (73-393); Potassium 3.5 mmol/L (3.5-5.1); Protein, Total 7.1 g/dL (6.4-8.2); Sodium Level 137 mmol/L (136-145)
[2017-10-02 08:57] LABS: Color, Urine Yellow (Yellow); Glucose, Dipstick Normal (Normal); Ketone-Dipstick 50 mg/dl (Negative); Leukocyte Esterase-Dipstick 25 /ul (Negative); Nitrite-Dipstick Negative (Negative); Occult Blood-Urine 250 /ul (Negative); Protein-Dipstick 15 mg/dl (Negative); Urine Bilirubin Dipstick Negative (Negative); Urine Clarity Clear (Clear); Urine Urobilinogen Normal (Normal); Urine pH 6.5 (5.0 - 8.0)
[2017-10-02 09:04] LABS: Hyaline Cast 5-10 SEEN /lpf (0-5)
[2017-10-02 09:05] LABS: Red Blood Cells-Urine 0-5 SEEN /hpf (0-5); White Blood Cells 0-5 SEEN /hpf (0-5)
[2017-10-02 09:06] LABS: Bacteria 1+ /hpf (None Seen); Mucous, Urine 2+ /hpf (<or=2+)
[2017-10-02 09:07] LABS: Squamous Epithelial Cells - UA 0-5 SEEN /hpf (5-10)
--- NOTE | 2017-10-02 10:32 | NURSING ---
NO LW OR POA
[2017-10-02] MEDS: Ciprofloxacin 500 MG Tablet PO (11:48)
--- NOTE | 2017-10-02 12:09 | DCINST.ED_ITS ---
ED Disposition - Plan for ED Patient: Disposition: Home or Assisted Living Chief Complaint: Abd Pain Diagnosis: Diverticulitis Instructions: ED Diverticulitis Prescriptions: Hydrocodone Bitart/Apap 5-325 [[place] 5/325] 1 - 2 tab PO Q4H PRN PRN 5 Days #20 tab PRN Reason: Pain Metronidazole [Flagyl] 500 mg PO Q8H #30 tab Ciprofloxacin [Cipro] 500 mg PO BID #20 tab Referrals: Juan Guaman MD [Primary Care Provider] - 5-7 Days
== END 2017-10-02 12:21 | disposition home or self-care (01) ==
PROVIDERS: Emergency Provider Emergency Medicine; Family Provider Family Medicine; PCP Family Medicine
DX: K57.32 Diverticulitis of large intestine without perforation or abscess without bleeding (principal); I10 Essential (primary) hypertension; E78.00 Pure hypercholesterolemia, unspecified; Z79.82 Long term (current) use of aspirin; Z79.891 Long term (current) use of opiate analgesic; Z79.899 Other long term (current) drug therapy
CPT/HCPCS: 74177; 80053; 81001; 83690; 85025; 99284; Q9967; A4216

== ENCOUNTER 2018-01-21 06:20 | Day surgery (SDC) | payer MEDICARE, SELFPAY ==
[2018-01-21 07:12] VITALS: BP 128/77; PULSE 73; RESP 16; TEMP 36.5; O2SAT 100; BMI 21.5
[2018-01-21 07:55] VITALS: BP 102/43; BP 128/77; PULSE 65; RESP 16; TEMP 36.4; O2SAT 100
--- NOTE | 2018-01-21 07:59 | OP.ENDO_ITS ---
Patient Name: Lucero Pal Procedure Date: 01/21/2018 7:23 AM Date of : 1940 Age: 77 Procedure: Colonoscopy Indications: Follow-up of diverticulitis Providers: Tony Siddiqui MD Medicines: See the Anesthesia note for documentation of the administered medications Patient Profile: This is a 77 year old female. Refer to note in patient chart for documentation of history and physical. Last Colonoscopy: August 2016. Complications: No immediate complications. Procedure: Pre-Anesthesia Assessment: - Prior to the procedure, a History and Physical was performed, and patient medications and allergies were reviewed. The patient's tolerance of previous anesthesia was also reviewed. The risks and benefits of the procedure and the sedation options and risks were discussed with the patient. All questions were answered, and informed consent was obtained. Prior Anticoagulants: The patient has taken aspirin, last dose was 7 days prior to procedure. ASA Grade Assessment: III - A patient with severe systemic disease. After reviewing the risks and benefits, the patient was deemed in satisfactory condition to undergo the procedure. After I obtained informed consent, the scope was passed under direct vision. Throughout the procedure, the patient's blood pressure, pulse, and oxygen saturations were monitored continuously. The adult colonoscope was introduced through the anus and advanced to the cecum, identified by appendiceal orifice and ileocecal valve. The colonoscopy was performed without difficulty. The patient tolerated the procedure well. The quality of the bowel preparation was good. Scope In: 7:37:08 AM Scope Withdrawal Time 0 hours 6 minutes 48 seconds Scope Out: 7:50:20 AM Total Procedure Duration Time 0 hours 13 minutes 12 seconds Findings: Multiple small and large-mouthed diverticula were found in the sigmoid colon. No biopsies or other specimens were collected for this exam. The exam was otherwise without abnormality. Impression: - Diverticulosis in the sigmoid colon. No specimens collected. - The examination was otherwise normal. Recommendation: - Discharge patient to home. - Resume previous diet. - Continue present medications. - Refer to surgeon for a segmental resection (date not yet determined). - Repeat colonoscopy in 5 years for surveillance. Procedure Code(s): --- Professional --- 48335, Colonoscopy, flexible; diagnostic, including collection of specimen(s) by brushing or washing, when performed (separate procedure) Diagnosis Code(s): --- Professional --- K57.32, Diverticulitis of large intestine without perforation or abscess without bleeding K57.30, Diverticulosis of large intestine without perforation or abscess without bleeding CPT copyright 2017 [employer]. All rights reserved. The codes documented in this report are preliminary and upon supervisor cytology review may be revised to meet current compliance requirements. MD Tony Armando MD 01/21/2018 7:58:30 AM This report has been signed electronically. Number of Addenda: 0 Note Initiated On: 01/21/2018 7:23 AM
[2018-01-21 08:00] VITALS: BP 128/77; BP 93/40; PULSE 67; RESP 16; O2SAT 100
[2018-01-21 08:05] VITALS: BP 128/77; BP 98/43; PULSE 63; RESP 16; O2SAT 100
[2018-01-21 08:10] VITALS: BP 118/61; BP 128/77; PULSE 60; RESP 16; TEMP 36.3; O2SAT 100
[2018-01-21 08:44] VITALS: BP 128/77
== END 2018-01-21 08:44 | disposition home or self-care (01) ==
LOC: EN 06:21 → AC 06:22
PROVIDERS: Family Provider Physician Assistant; PCP Physician Assistant; Referring Provider Surgery; Visit Provider Surgery
PROC: 0DJD8ZZ Inspection of Lower Intestinal Tract, Via Natural or Artificial Opening Endoscopic (ICD-10-PCS; CPT 45378; principal; 2018-01-21 07:25)
DX: K57.30 Diverticulosis of large intestine without perforation or abscess without bleeding (principal); E03.9 Hypothyroidism, unspecified; E78.5 Hyperlipidemia, unspecified; M19.90 Unspecified osteoarthritis, unspecified site; I12.9 Hypertensive chronic kidney disease with stage 1 through stage 4 chronic kidney disease, or unspecified chronic kidney disease; N18.3 Chronic kidney disease, stage 3 (moderate); E66.3 Overweight; K21.9 Gastro-esophageal reflux disease without esophagitis; Z68.21 Body mass index [BMI] 21.0-21.9, adult; Z79.82 Long term (current) use of aspirin; Z79.891 Long term (current) use of opiate analgesic; Z79.899 Other long term (current) drug therapy
CPT/HCPCS: 45378; J7120; J1610

== ENCOUNTER 2020-04-06 13:39 | Outpatient (RCR) | payer MEDICARE, SELFPAY | END 2020-04-06 23:59 | LOC: IMMUN 13:39 | PROVIDERS: PCP Physician Assistant; Visit Provider Family Medicine | DX: Z23 Encounter for immunization (principal) | CPT/HCPCS: 0011A; 0012A; 91301 ==

== ENCOUNTER 2021-02-15 18:02 | Emergency (ER) | payer MEDICARE, SELFPAY ==
[2021-02-15 18:03] VITALS: BP 182/93; PULSE 94; RESP 18; TEMP 35.9; O2SAT 100; BMI 21.4
--- NOTE | 2021-02-15 18:14 | ED.RN ---
PT NIH 0 AT THIS TIME, BG 83. PT REPORTS SHE HAS HAD VERTIGO BEFORE AND IT DOES NOT FEEL LIKE THAT. CALLED FOR EKG FOR PALPITATIONS. DR. MCCALLUM MADE AWARE OF SX AND REPORTS NO STROKE TEAM BUT PT WILL BE SEEN IN ED.
[2021-02-15 18:20] LABS: Bedside Glucose 83 mg/dL (70-110)
--- NOTE | 2021-02-15 18:22 | EKG12_ITS ---
Test Reason : DYSRHYTHMIA Blood Pressure : / mmHG Vent. Rate : 088 BPM Atrial Rate : 088 BPM P-R Int : 198 ms QRS Dur : 106 ms QT Int : 364 ms P-R-T Axes : 048 000 053 degrees QTc Int : 440 ms Normal sinus rhythm Left ventricular hypertrophy Abnormal ECG Confirmed by SIDNEY AVALOS, KRIS ([id number]), digital editor SHAQUILLE RAZO ([id number]) on 02/18/2021 10:16:57 AM Referred By: THERON Confirmed By:KRIS LITTLE MD
--- NOTE | 2021-02-15 19:11 | EDS_ITS ---
HPI History of Present Illness Chief Complaint: Dizziness Informant: patient Onset/Context/Timing Onset: Today and Hours (3) Context: Sudden Onset Timing: Continuous Quality: Blurred vision, off balance Location: Head Worsened by: Nothing Relieved by: Nothing Narrative Narrative: Patient presents with dizziness that began today. Patient states she woke up from her nap about 3 hours prior to arrival and felt dizzy. Patient states her dizziness felt like she was off balance and her vision was blurred. Patient states nothing makes it worse and nothing makes it better. Patient states it has been constant for the past 3 hours. Patient states she broke out into a sweat when she woke up. Patient admits to some nausea but denies any vomiting. Patient admits to a mild headache. [facility] Medical History Chronic constipation Chronic renal failure, stage 3 (moderate) History of diverticulitis HLD (hyperlipidemia) HTN (hypertension) Hypothyroidism Osteoarthritis Overweight (BMI 25.0-29.9) Psoriasis Home Medications calcium carbonate 200 mg PO PRN PRN 03/05/17 [History Last Taken Unknown] clobetasol 118 ml TP PRN PRN 03/05/17 [History Last Taken Unknown] ezetimibe 10 mg PO DAILY 03/05/17 [History Last Taken Unknown] levothyroxine 100 mcg PO DAILY 03/05/17 [History Last Taken 05/04/17 08:00] metoprolol tartrate 50 mg PO DAILY 03/05/17 [History Last Taken 01/21/18 06:00] ramipril 10 mg PO DAILY 03/05/17 [History Last Taken 01/21/18 06:00] cholecalciferol (vitamin D3) 25 mcg (1,000 unit) capsule 1,000 unit PO DAILY 10/29/17 [History Last Taken Unknown] polyethylene glycol 3350 17 gm PO DAILY PRN 01/20/18 [History Last Taken Unknown] tramadol 50 mg PO Q8H PRN 02/15/21 [History Last Taken Unknown] Allergy/AdvReac Type Severity Reaction Status Date / Time adhesive Allergy Rash Verified 02/15/21 18:03 griseofulvin Allergy Unknown Verified 02/15/21 18:03 [From Grifulvin V] latex Allergy Unknown Verified 02/15/21 18:03 tramadol [From Ultram] Allergy Other Verified 02/15/21 18:03 Family History Father Diabetes Hypertension Mother Hypertension Cancer cervical cancer Surgical History History of cataract extraction History of section History of colonoscopy (~08/2016) History of total bilateral knee replacement History of tubal ligation S/P colonoscopy (~01/21/18) Social History Smoking Status: Never smoker ROS ROS ED Constitutional Constitutional ED: Reports sweats; Denies chills or fever(s) Eyes Eyes: Reports blurry vision; Denies diplopia ENT ENT ED: Denies rhinorrhea or sore throat Cardiovascular Cardiovascular: Denies chest pain or palpitations Respiratory/Chest Respiratory/Chest: Denies cough or dyspnea Gastrointestinal Gastrointestinal: Reports nausea; Denies vomiting Genitourinary Genitourinary ED: Denies dysuria or hematuria Musculoskeletal Musculoskeletal: Reports back pain; Denies neck pain Integumentary Denies abscess or rash Neurologic Neurologic: Reports headache(s); Denies weakness Allergic/Immunologic Allergic/Immunologic ED: Denies mouth swelling or urticaria EXAM Physical Exam Const Vital Signs: 02/15/21 18:03 02/15/21 19:18 02/15/21 19:20 Temperature 96.7 F L Temperature Source Temporal Pulse Rate 94 85 Respiratory Rate 18 16 Respiratory Effort Respiratory Pattern Blood Pressure 182/93 H 173/83 H Blood Pressure Mean 122 113 Pulse Ox 100 98 98 Oxygen Delivery Method Room Air Room Air Room Air 02/15/21 19:21 02/15/21 19:25 02/15/21 20:04 Temperature Temperature Source Pulse Rate 90 95 Respiratory Rate 18 17 Respiratory Effort Normal Non-Labored Respiratory Pattern Normal Blood Pressure 173/83 H 162/75 H Blood Pressure Mean 113 104 Pulse Ox 97 98 Oxygen Delivery Method Room Air Room Air Positive well nourished and well developed General Appearance ED: well developed HEENT Reports moist mucous membranes Eyes PERRL and EOMs intact bilaterally Eyes Narrative: There is no nystagmus noted. Neck supple and no JVD Resp normal respiratory effort and clear to auscultation bilaterally Cardio regular rate, regular rhythm and no murmurs GI normal to inspection, nondistended, normoactive bowel sounds and non-tender Palpation: soft Extremity normal to inspection General Extremety ED: Negative for edema or tenderness General Extremity: Negative for edema Neuro oriented x3, CN's II-XII intact bilaterally and no sensory deficits noted Sensorium / Orientation: alert Motor Exam: strength 5/5 throughout Psych mental status grossly normal Skin no rashes or lesions noted MDM MDM MDM Narrative Medical decision making narrative: EKG was obtained. On my interpretation, it showed a normal sinus rhythm with a rate of 88. MA interval, QRS interval, and QTc intervals were all normal. [place] was normal. There is left ventricular hypertrophy with a strain pattern noted. Portable 1 view chest x-ray was obtained. On my interpretation, lung saunders are clear. There is normal cardiac silhouette. Bony thorax is normal. There is no acute process noted. Radiologist also interpreted the x-ray and agrees. CT scan of the brain was obtained. There is no acute intracranial abnormality. This was interpreted by the radiologist and reviewed by myself. CBC was within normal limits. PT with INR and PTT were normal. Basic metabolic profile was within normal limits. Patient was advised of her findings. Patient will be ambulated to make sure that she can ambulate safely at home. Patient was able to ambulate to the bathroom and back without difficulty. Patient was instructed to drink plenty of fluids. Patient was instructed to follow-up with her primary care physician in 3 to 5 days for further evaluation. Patient understood and was agreeable with the plan. All questions were answered. Lab Data Attestation: I reviewed the patient's lab results. Labs: Laboratory Results - last 24 hr 02/15/21 02/15/21 02/15/21 18:11 19:00 19:00 WBC 5.4 RBC 3.63 L Hgb 10.8 L Hct 32.3 L MCV 89.0 MCH 29.8 MCHC 33.4 RDW Std Deviation 45.2 H RDW Coeff of Yanet 13.9 Plt Count 267 MPV 10.0 Immature Gran % (Auto) 0.200 Neut % (Auto) 64.8 Lymph % (Auto) 23.8 [place] % (Auto) 8.1 Eos % (Auto) 2.4 Baso % (Auto) 0.7 Absolute Neuts (auto) 3.5 Absolute Lymphs (auto) 1.29 Nucleated RBC % 0 PT 12.4 INR 1.0 APTT 29.5 Sodium Potassium Chloride Carbon Dioxide Anion Gap BUN Creatinine Estim Creat Clear Calc Est GFR (MDRD) Af Amer Est GFR (MDRD) Non-Af BUN/Creatinine Ratio Glucose Calcium Troponin I High Sens POC Glucose 83 02/15/21 19:00 WBC RBC Hgb Hct MCV MCH MCHC RDW Std Deviation RDW Coeff of Yanet Plt Count MPV Immature Gran % (Auto) Neut % (Auto) Lymph % (Auto) [place] % (Auto) Eos % (Auto) Baso % (Auto) Absolute Neuts (auto) Absolute Lymphs (auto) Nucleated RBC % PT INR APTT Sodium 134 L Potassium 3.7 Chloride 100 Carbon Dioxide 26.0 Anion Gap 8 BUN 16 Creatinine 1.12 H Estim Creat Clear Calc 36.05 Est GFR (MDRD) Af Amer 60 Est GFR (MDRD) Non-Af 50 L BUN/Creatinine Ratio 14.3 Glucose 97 Calcium 9.6 Troponin I High Sens 9 POC Glucose Radiography Chest X-Ray - ED: 1 View, Read by ED Physician, Read by Radiologist and Normal Diagnostic Testing: Clinical Impression(s) from Imaging Studies Brain CT 02/15/21 19:13 IMPRESSION: There are no acute findings. Chronic involutional changes of the brain. Electronically Signed: Johnny Paz MD at 19:53 EST , Service support , Chest X-Ray 02/15/21 19:29 IMPRESSION: No radiographic evidence of acute cardiopulmonary disease. Electronically Signed: Johnny Paz MD at 19:47 EST , Service support , EKG Initial EKG: Attestation: I personally reviewed and interpreted this EKG as follows: Interpretation: Sinus Rhythm (88) Comments: There is left ventricular hypertrophy with strain pattern noted. Prior EKG tracings: not available for review Discharge Plan Triage Chief Complaint: Dizziness ED Provider: Domo Elise Dx/Rx/DC Orders Clinical Impression: Dizziness of unknown etiology Instructions: ED Dizziness, Uncertain Cause Prescriptions: No Action cholecalciferol (vitamin D3) 1,000 unit capsule 1,000 unit PO DAILY RF: 0 levothyroxine 100 MCG tablet 100 mcg PO DAILY RF: 0 metoprolol tartrate 50 MG tablet 50 mg PO DAILY RF: 0 ramipril 10 MG capsule 10 mg PO DAILY RF: 0 ezetimibe 10 MG tablet 10 mg PO DAILY RF: 0 clobetasol 118 ML shampoo 118 ml TP PRN PRN (Reason: shampoo) RF: 0 calcium carbonate 200 MG tablet,chewable 200 mg PO PRN PRN (Reason: Indigestion) RF: 0 polyethylene glycol 3350 17 GM packet 17 gm PO DAILY PRN (Reason: Constipation) RF: 0 tramadol 50 mg tablet 50 mg PO Q8H PRN (Reason: Pain) RF: 0 Primary Care Provider: Shan Gimenez Referrals: Shan Gimenez PA [Primary Care Provider] - 3-5 Days Disposition Disposition: Home, Self Care
--- NOTE | 2021-02-15 19:13 | CT_ITS ---
STUDY: CT BRAIN WITHOUT CONTRAST REASON FOR EXAM: Female, 80 years old. Technologist Notes New onset dizziness at 1600 when waking from a nap. Palpitations, diaphoresis, blurry vision, nausea Headache Individualized dose optimization techniques were used for this CT. TECHNIQUE: Transaxial CT imaging of the brain was performed without administration of intravenous contrast material. COMPARISON: None FINDINGS: There are calcifications around the carotid artery. These are noted in the cavernous carotid arteries. Normal calvarium. Normal soft tissues. There is mild cerebral atrophy with widening of the extra-axial spaces and ventricular dilatation. There are areas of decreased attenuation within the white matter tracts of the supratentorial brain, consistent with microvascular disease changes. Normal basal ganglia and thalami. Normal brainstem. There is mild cerebellar atrophy. There is no intracranial hemorrhage. There are no findings of an acute ischemic infarction. Normal visualized paranasal sinuses. ASPECTS Score for Acute Strokes: 12/16 CT/Brain/Head without Contrast IMPRESSION: There are no acute findings. Chronic involutional changes of the brain. Electronically Signed: Johnny Paz MD at 19:53 EST , Service support ,
[2021-02-15 19:18] VITALS: O2SAT 98
[2021-02-15 19:18] LABS: Absolute Lymphocyte Count 1.29 X10^3/uL (0.83-4.51); Absolute Neutrophil Count 3.5 X10^3/uL (2.0-7.7); Basophil# 0.04 X10^3/uL; Basophil% 0.7 % (0-1); Eosinophil# 0.13 X10^3/uL; Eosinophils% 2.4 % (0-5); Hematocrit 32.3 % (37-47); Hemoglobin 10.8 g/dL (12.0-15.0); Lymphocyte # 1.29 X10^3/ul (0.83-4.51); Lymphocyte % 23.8 % (19-41); Mean Corp Hgb Conc 33.4 g/dL (32-36); Mean Corpuscular Hgb 29.8 pg (27.0-32.0); Monocyte# 0.44 X10^3/uL; Monocyte% 8.1 % (0-10); NRBC Flagged by Analyzer 0 % (0-5); Neutrophil # 3.52 X10^3/uL (2.7-7.7); Neutrophil % 64.8 % (47-70); Platelet Count 267 K/mm3 (150-450); RBC Distribution Width CV 13.9 % (11.6-14.6); RBC Distribution Width SD 45.2 fl (35.1-43.9); Red Blood Count 3.63 M/mm3 (4.2-5.4); White Blood Count 5.4 K/mm3 (4.4-11.0)
[2021-02-15] MEDS: 0.9% Normal Saline 1,000 ML 50 ML IV (19:19)
[2021-02-15 19:20] VITALS: BP 173/83; PULSE 85; RESP 16; O2SAT 98
[2021-02-15 19:25] VITALS: BP 173/83; PULSE 90; RESP 18; O2SAT 97
--- NOTE | 2021-02-15 19:29 | RAD_ITS ---
EXAM: XR CHEST, 1 VIEW CLINICAL INDICATION: Stroke TECHNIQUE: Frontal view of the chest. This report was created using [employer] report generation technology. COMPARISON: None. FINDINGS: LUNGS AND PLEURAL SPACES: Unremarkable. No consolidation or edema. No pneumothorax. No effusion. HEART: Unremarkable. Cardiac silhouette not enlarged. MEDIASTINUM: Central airways and mediastinal contour are unremarkable. BONES/JOINTS: Unremarkable. SOFT TISSUES: Unremarkable. RAD/Chest 1 View (Portable) IMPRESSION: No radiographic evidence of acute cardiopulmonary disease. Electronically Signed: Johnny Paz MD at 19:47 EST , Service support ,
[2021-02-15 19:30] LABS: Partial Thromboplast Time 29.5 Seconds (24.1-36.2); Prothrombin Time (Protime)PT. 12.4 SECONDS (11.7-14.9)
[2021-02-15 19:36] LABS: Anion Gap 8 (5-15); BUN 16 mg/dL (7-18); BUN/Creat Ratio 14.3 RATIO (10-20); Calcium,Total 9.6 mg/dL (8.5-10.1); Chloride 100 mmol/L (98-107); Creatinine, Serum 1.12 mg/dL (0.55-1.02); EST Glomerular Filtration Rate 50 mL/min (>60); Est Glom Filt Rate - Afr Amer 60 mL/min (>60); Estimated Creatinine Clearance 36.05 ml/min; Glucose 97 mg/dL (74-106); Potassium 3.7 mmol/L (3.5-5.1); Sodium Level 134 mmol/L (136-145); Troponin-I HS 9 pg/mL (3.0-54.0)
[2021-02-15 20:04] VITALS: BP 162/75; PULSE 95; RESP 17; O2SAT 98
[2021-02-15 21:43] VITALS: BP 175/76; PULSE 74; RESP 16; O2SAT 98
== END 2021-02-15 21:44 | disposition home or self-care (01) ==
PROVIDERS: Emergency Provider Emergency Medicine; PCP Physician Assistant
DX: R42 Dizziness and giddiness (principal); I51.7 Cardiomegaly; I12.9 Hypertensive chronic kidney disease with stage 1 through stage 4 chronic kidney disease, or unspecified chronic kidney disease; N18.30 Chronic kidney disease, stage 3 unspecified; E78.5 Hyperlipidemia, unspecified; E03.9 Hypothyroidism, unspecified; M19.90 Unspecified osteoarthritis, unspecified site; Z79.899 Other long term (current) drug therapy
CPT/HCPCS: 70450; 71045; 80048; 82962; 84484; 85025; 85610; 85730; 93005; 99284

== ENCOUNTER 2021-02-21 19:27 | Emergency (ER) | payer MEDICARE, SELFPAY ==
[2021-02-21 19:28] VITALS: BP 171/88; PULSE 106; RESP 18; TEMP 36.2; O2SAT 99; BMI 21.2
--- NOTE | 2021-02-21 20:20 | CT_ITS ---
INDICATION: RLQ abdominal pain EXAMINATION: CT Abdomen And Pelvis W/ Contrast Injection TECHNIQUE: Helically acquired images were obtained of the abdomen and pelvis after IV contrast. A radiation dose optimization technique was used for this scan. IV Contrast dosage and agent: IV 100mL Isovue-300 Oral contrast: None. COMPARISON: 10/02/2017. FINDINGS: Visualized lung bases: Unremarkable Liver: Stable focal fatty infiltration near the falciform ligament. Gallbladder: Stable chronic mild gallbladder wall thickening. Spleen: Unremarkable Pancreas: Unremarkable Adrenal Glands: Unremarkable Kidneys: Unremarkable Vasculature: Severe aortoiliac atherosclerotic disease. GI Tract: Scattered diverticula throughout the colon without evidence of inflammation. The appendix is normal. Lymphadenopathy: None Peritoneum: No ascites. Bladder: Unremarkable Reproductive organs: Unremarkable Bones/Soft tissues: There are diffuse degenerative changes of the spine. Age indeterminate compression deformities of L1 and T10 with retropulsion of fragments at L1. CT/Abdomen/Pelvis W IV Cont ONLY IMPRESSION: Age indeterminate compression deformities of L1 and T10 with retropulsion of fragments at L1. Extensive diverticulosis without evidence of acute diverticulitis. Stable chronic mild gallbladder wall thickening. Stable likely focal fatty infiltration near the falciform ligament. Electronically Signed: Issac Mercado MD at 21:53 EST Tel , Service support ,
[2021-02-21 20:25] LABS: Absolute Lymphocyte Count 1.37 X10^3/uL (0.83-4.51); Absolute Neutrophil Count 3.7 X10^3/uL (2.0-7.7); Basophil# 0.04 X10^3/uL; Basophil% 0.7 % (0-1); Eosinophil# 0.13 X10^3/uL; Eosinophils% 2.3 % (0-5); Hematocrit 34.2 % (37-47); Hemoglobin 11.4 g/dL (12.0-15.0); Lymphocyte # 1.37 X10^3/ul (0.83-4.51); Lymphocyte % 23.8 % (19-41); Mean Corp Hgb Conc 33.3 g/dL (32-36); Mean Corpuscular Hgb 29.5 pg (27.0-32.0); Mean Corpuscular Volume 88.6 fL (81-99); Mean Platelet Vol. 9.7 fl (6.2-12.0); Monocyte# 0.54 X10^3/uL; Monocyte% 9.4 % (0-10); NRBC Flagged by Analyzer 0 % (0-5); Neutrophil # 3.65 X10^3/uL (2.7-7.7); Neutrophil % 63.3 % (47-70); Platelet Count 292 K/mm3 (150-450); RBC Distribution Width CV 13.7 % (11.6-14.6); RBC Distribution Width SD 44.4 fl (35.1-43.9); Red Blood Count 3.86 M/mm3 (4.2-5.4); White Blood Count 5.8 K/mm3 (4.4-11.0)
[2021-02-21 20:52] LABS: ALB/GLOB Ratio 0.9 RATIO (0.9-2.4); AST(SGOT) 27 U/L (15-37); Alanine Aminotransfer ALT/SGPT 35 U/L (13-56); Albumin, Serum 3.6 g/dL (3.2-5.0); Alkaline Phosphatase 100 U/L (45-117); Anion Gap 8 (5-15); BUN 15 mg/dL (7-18); BUN/Creat Ratio 15.2 RATIO (10-20); Calcium,Total 9.7 mg/dL (8.5-10.1); Chloride 103 mmol/L (98-107); Creatinine, Serum 0.99 mg/dL (0.55-1.02); EST Glomerular Filtration Rate 58 mL/min (>60); Est Glom Filt Rate - Afr Amer 70 mL/min (>60); Estimated Creatinine Clearance 39.14 ml/min; Globulin 3.8 g/dL (2.2-4.2); Glucose 105 mg/dL (74-106); Lipase 165 U/L (73-393); Potassium 3.2 mmol/L (3.5-5.1); Protein, Total 7.4 g/dL (6.4-8.2); Sodium Level 136 mmol/L (136-145)
--- NOTE | 2021-02-21 20:54 | EDS_ITS ---
HPI HPI - GI History of Present Illness Chief Complaint: Abd Pain Narrative Narrative: 80-year-old female presenting with abdominal pain on on the right upper quadrant, left upper quadrant, right lower quadrant x1 week. She denies diarrhea or constipation. She denies fever or chills. She admits to nausea. Pain was worse with eating. She has a history of diverticulitis but this was in the left lower quadrant. She is only had a as far surgical history and her abdomen. She denies urinary complaints. She denies vaginal complaints. She denies any trauma. No black or bloody stools. [facility] Medical History Chronic constipation Chronic renal failure, stage 3 (moderate) History of diverticulitis HLD (hyperlipidemia) HTN (hypertension) Hypothyroidism Osteoarthritis Overweight (BMI 25.0-29.9) Psoriasis Home Medications calcium carbonate 200 mg PO PRN PRN 03/05/17 [History Last Taken Unknown] clobetasol 118 ml TP PRN PRN 03/05/17 [History Last Taken Unknown] ezetimibe 10 mg PO DAILY 03/05/17 [History Last Taken Unknown] levothyroxine 100 mcg PO DAILY 03/05/17 [History Last Taken 05/04/17 08:00] metoprolol tartrate 50 mg PO DAILY 03/05/17 [History Last Taken 01/21/18 06:00] ramipril 10 mg PO DAILY 03/05/17 [History Last Taken 01/21/18 06:00] cholecalciferol (vitamin D3) 25 mcg (1,000 unit) capsule 1,000 unit PO DAILY 10/29/17 [History Last Taken Unknown] polyethylene glycol 3350 17 gm PO DAILY PRN 01/20/18 [History Last Taken Unknown] tramadol 50 mg PO Q8H PRN 02/15/21 [History Last Taken Unknown] Allergy/AdvReac Type Severity Reaction Status Date / Time adhesive Allergy Rash Verified 02/21/21 19:28 griseofulvin Allergy Unknown Verified 02/21/21 19:28 [From Grifulvin V] latex Allergy Unknown Verified 02/21/21 19:28 tramadol [From Ultram] Allergy Other Verified 02/21/21 19:28 Family History Father Diabetes Hypertension Mother Hypertension Cancer cervical cancer Surgical History History of cataract extraction History of section History of colonoscopy (~08/2016) History of total bilateral knee replacement History of tubal ligation S/P colonoscopy (~01/21/18) Social History Smoking Status: Never smoker ROS ROS ED Constitutional Constitutional ED: Denies chills or fever(s) ENT ENT ED: Denies rhinorrhea or sore throat Cardiovascular Cardiovascular: Denies chest pain or palpitations Respiratory/Chest Respiratory/Chest: Denies cough, dyspnea or sputum Gastrointestinal Gastrointestinal: Reports abdominal pain and nausea; Denies constipation, diarrhea or vomiting Genitourinary Genitourinary ED: Denies dysuria or hematuria Musculoskeletal Musculoskeletal: Denies arthralgias or myalgias Integumentary Denies rash Neurologic Neurologic: Denies headache(s), paresthesias or weakness Psychiatric Psychiatric: Denies anxiety or depression EXAM Physical Exam Const Vital Signs: 02/21/21 19:28 02/21/21 22:07 Temperature 97.1 F L Temperature Source Temporal Pulse Rate 106 H 88 Respiratory Rate 18 18 Blood Pressure 171/88 H Blood Pressure Mean 115 Pulse Ox 99 95 Oxygen Delivery Method Room Air Positive well nourished General Appearance ED: NAD; Negative for pallor HEENT Reports moist mucous membranes normocephalic and atraumatic Eyes PERRL and EOMs intact bilaterally Resp normal respiratory effort and clear to auscultation bilaterally Cardio regular rate and regular rhythm GI non-distended GI Narrative: Abdomen is nonperitoneal. Palpation: soft and tender RLQ, LUQ and RUQ Back/Spine no CVA tenderness Neuro CN's II-XII intact bilaterally Sensorium / Orientation: alert, oriented to person, oriented to place and oriented to time Psych mental status grossly normal and thought process normal Skin General Skin Exam: Negative for jaundice or pallor MDM MDM MDM Narrative Medical decision making narrative: Patient presenting with fairly diffuse abdominal pain and cramping. She denies diarrhea or constipation. CBC and CMP are unremarkable. Patient given morphine and Zofran for pain and nausea respectively. I obtained a CT of the abdomen pelvis which shows no acute intra- abdominal pathology. Patient counseled on findings. Since he is continue to have pain for a week I will have her follow-up with Dr. Higuera outpatient. Patient stable discharge. Impression: 1. Abdominal pain unknown etiology female Lab Data Labs: Laboratory Results - last 24 hr 02/21/21 02/21/21 02/21/21 20:17 20:17 20:40 WBC 5.8 RBC 3.86 L Hgb 11.4 L Hct 34.2 L MCV 88.6 MCH 29.5 MCHC 33.3 RDW Std Deviation 44.4 H RDW Coeff of Yanet 13.7 Plt Count 292 MPV 9.7 Immature Gran % (Auto) 0.500 Neut % (Auto) 63.3 Lymph % (Auto) 23.8 [place] % (Auto) 9.4 Eos % (Auto) 2.3 Baso % (Auto) 0.7 Absolute Neuts (auto) 3.7 Absolute Lymphs (auto) 1.37 Nucleated RBC % 0 Sodium 136 Potassium 3.2 L Chloride 103 Carbon Dioxide 25.0 Anion Gap 8 BUN 15 Creatinine 0.99 Estim Creat Clear Calc 39.14 Est GFR (MDRD) Af Amer 70 Est GFR (MDRD) Non-Af 58 L BUN/Creatinine Ratio 15.2 Glucose 105 Calcium 9.7 Total Bilirubin 0.50 AST 27 ALT 35 Alkaline Phosphatase 100 Total Protein 7.4 Albumin 3.6 Globulin 3.8 Albumin/Globulin Ratio 0.9 Lipase 165 Urine Color Yellow Urine Clarity Clear Urine pH 6.0 Ur Specific [place] 1.020 Urine Protein 30 H Urine Glucose (UA) Normal Urine Ketones 50 H Urine Occult Blood 150 H Urine Nitrite Negative Urine Bilirubin Negative Urine Urobilinogen Normal Ur Leukocyte Esterase 500 H Radiography Diagnostic Testing: Clinical Impression(s) from Imaging Studies Abdomen/Pelvis CT 02/21/21 20:20 IMPRESSION: Age indeterminate compression deformities of L1 and T10 with retropulsion of fragments at L1. Extensive diverticulosis without evidence of acute diverticulitis. Stable chronic mild gallbladder wall thickening. Stable likely focal fatty infiltration near the falciform ligament. Electronically Signed: Issac Mercado MD at 21:53 EST Tel , Service support , Discharge Plan Triage Chief Complaint: Abd Pain ED Provider: Shahab Titus Dx/Rx/DC Orders Instructions: ED Abdominal Pain Unkn Cause Fem Prescriptions: No Action cholecalciferol (vitamin D3) 1,000 unit capsule 1,000 unit PO DAILY RF: 0 levothyroxine 100 MCG tablet 100 mcg PO DAILY RF: 0 metoprolol tartrate 50 MG tablet 50 mg PO DAILY RF: 0 ramipril 10 MG capsule 10 mg PO DAILY RF: 0 ezetimibe 10 MG tablet 10 mg PO DAILY RF: 0 clobetasol 118 ML shampoo 118 ml TP PRN PRN (Reason: shampoo) RF: 0 calcium carbonate 200 MG tablet,chewable 200 mg PO PRN PRN (Reason: Indigestion) RF: 0 polyethylene glycol 3350 17 GM packet 17 gm PO DAILY PRN (Reason: Constipation) RF: 0 tramadol 50 mg tablet 50 mg PO Q8H PRN (Reason: Pain) RF: 0 Primary Care Provider: Shan Gimenez Referrals: Kalen,DO Sony [STAFF PHYSICIAN] - As soon as possible Shan Gimenez PA [Primary Care Provider] - Disposition Disposition: Home, Self Care Discharge Date/Time: 02/21/21 22:11
[2021-02-21 20:57] LABS: Color, Urine Yellow (Yellow); Glucose, Dipstick Normal (Normal); Ketone-Dipstick 50 mg/dl (Negative); Leukocyte Esterase-Dipstick 500 /ul (Negative); Nitrite-Dipstick Negative (Negative); Occult Blood-Urine 150 /ul (Negative); Protein-Dipstick 30 mg/dl (Negative); Urine Bilirubin Dipstick Negative (Negative); Urine Clarity Clear (Clear); Urine Urobilinogen Normal (Normal)
[2021-02-21 22:07] VITALS: PULSE 88; RESP 18; O2SAT 95
== END 2021-02-21 22:11 | disposition home or self-care (01) ==
PROVIDERS: Emergency Provider Student in an Organized Health Care Education/Training Program; PCP Physician Assistant
DX: R10.11 Right upper quadrant pain (principal); R10.12 Left upper quadrant pain; R10.31 Right lower quadrant pain; K59.09 Other constipation; I12.9 Hypertensive chronic kidney disease with stage 1 through stage 4 chronic kidney disease, or unspecified chronic kidney disease; N18.30 Chronic kidney disease, stage 3 unspecified; E03.9 Hypothyroidism, unspecified; E78.5 Hyperlipidemia, unspecified; M19.90 Unspecified osteoarthritis, unspecified site; Z79.899 Other long term (current) drug therapy
CPT/HCPCS: 74177; 80053; 81002; 83690; 85025; 99283; Q9967; A4216

== ENCOUNTER 2021-06-27 13:30 | Outpatient (RCR) | payer MEDICARE, SELFPAY ==
--- NOTE | 2021-05-28 13:58 | HP.PTEVAL ---
Patient's Visit Information CARO DOMINGO is a 80 year old F referred to Physical Therapy by [facility] with a diagnosis of L1 COMPRESSION FX. Date of Evaluation: 05/28/21 Physical Therapist: Zee Hooks PT, Cert MDT - Visit Plan Frequency: 2-3x /Week Duration: 4-6 Weeks Plan: AVOID PROVOKING PAIN. HEAT OR COLD NEEDED/INDICATED. POSTURE CORRECTION/STRENGTHENING, INSTRUCTION IN APPROPRIATE BODY MECHANICS AND ACTIVITY MODIFICATIONS. DLS STARTING WITH A NEUTRAL SPINE PROGRESSING ROM TOLERATED. SANDEEP LE ROM, STRETCHING AND STRENGTHENING. HEP INSTRUCTION. - Subjective Work/Leisure: RETIRED. Present symptoms: PAIN IN ABDOMINAL AREA, LOW BACK AND BACK SPASMS. PATIENT DENIES SANDEEP UE AND LE SX'S. Present since: JAN 23 2021. Pain Scale: WORST 8/10, LEAST 3/10. Currently: 5/10. Commenced as a result of: TRYING TO HELP OUT OF A CHAIR WHEN HE GOT HOME FROM THE HOSPITAL AFTER HAVING A STROKE. Symptoms at onset: PAIN IN BACK. STOMACH PAIN STARTED LATER - 2 WKS LATER. Worse: WHEN I HAVE TO USE MY CORE STRENGTH, PULLING HUSBANDS SOCKS ON. GETTING HIM DRESSED IS THE WORST OF THE DAY. TOO MUCH BENDING, LIFTING. Better: LYING DOWN. Disturbed sleep: NO. Previous history/Previous treatment: PATIENT REPORTS SHE HAS HURT HER BACK BEFORE BUT NO SERIOUS BACK PAIN IN THE PAST. NO BACK SURGERY. NO LUCERO'S. Treatment this episode: PATIENT REPORTS MADIHA SANTOS TRIED TO DO SOME CHIROPRACTIC TREATMENTS ON HER BACK BUT IT HURT SO BAD SHE SCREAMED AND REPORTS IT CAUSED EXCRUTIATING PAIN (STATES SHE WENT TO TWO WELL CLINICS BEFORE THAT AND TRIED PREDNISONE AND OTHER MEDICINE BUT IT DIDN'T HELP) HE THEN PRESCRIBED TRAMDOL, TYLONOL ARTHRIS AND IBUPROFEN. SHE REPORTS RELIEF WITH THE MEDICINE. SHE REPORTS SHE REQUESTED PT. ALSO REPORTS SEEING DR. ESPOSITO WHEN MADIHA SANTOS WAS NOT AVAILABLE. REPORTS SHE HAS BEEN TO THE ED FOR PAIN TWICE TOO IN FEBRUARY. PATIENT REPORTS HER PAIN IS BECOMING MORE MANAGEABLE AND SHE THINKS SHE IS STARTING TO HEEL BUT SHE IS STILL STOOPED OVER AND SHE WANTS THERAPY SO SHE CAN STAND UP STRAIGHTER AGAIN. Coughing/sneezing/straining: NEGATIVE. Gait: STOOPED OVER NOW BUT WASN'T BEFORE. NO FALLS. NO ASSISTIVE DEVICES. CAN SHOP [employer]. Difficulty initiating urination: NO. NO LOSS OF BOWEL CONTROL. Accidents: UNREMARKABLE. Unexplained weight loss: NONE RECENT BUT HAS LOST ABOUT 20 LBS SINCE HER HAD A STROKE AND SHE REPORTS MADIHA SANTOS IS AWARE. Imaging: REPORTS LUMBAR [facility]-RAYS AT [facility]. PMH/Recent major surgery: OSTEOPOROSIS, HIGH CHOLESTEROL, HTN, THYROID DZ. OTHER: HAD RECENT STROKE AND DAUGHTER CAN HELP NEEDED. LIVES IN ONE STORY HOME. PATIENT HAS TO GIVE MINIMAL ASSIST WITH CAR TRANSFERS. IS ABLE TO DO CHAIR TRANSFERS INDEP'LY NOW AND HE WALKS WITH A [employer]HA WALKER AROUND THE HOUSE NOW. PATIENT HELPS GET DRESSED. - Objective Sitting/Standing Posture: INCREASED KYPHOSIS. DECREASED LORDOSIS. NO RELEVENT LATERAL SHIFT. Active Correction of posture: WORSE. Other Observations: INDEP GAIT AND TRANSFERS INTO PT. PATIENT PUSHED HER BACK TO OT IN A W/C BEFORE HER PT MARY'T. Motor deficit: SANDEEP UE'S AND LE'S GROSSLY 4/5 WITH MMT'ING EXCEPT HIPS AND SHLD'S GROSSLY 4-/5. PATIENT DENIES INCREASED PAIN WITH TESTING. Sensory deficit: SANDEEP UE AND LE LIGHT TOUCH SENSATION IS GROSSLY INTACT AND SYMMETRICAL. ROM deficit: SANDEEP UE'S AND LE'S WFL. Dural Signs: NEGATIVE SANDEEP LE'S. Lumbar mvmt loss: flex - MIN. ext - BEBE. R SG - BEBE. L SG - BEBE. PATIENT C/O INCREASED BACK PAIN AT THE END OF THE AVAILABLE ROM INTO FLEXION. Core strength: POOR. Palpation: NO ACUTE SPINE TENDERNESS. TREATMENT: NEUROMUSCULAR REEDUCATION - RETRAINING OF MVMT AND POSTURE FOR SITTING, LYING AND STANDING ACTIVITIES. OTHER: PATIENT DOES NOT WANT TO DO AQUATIC THERAPY BECAUSE SHE DOES NOT LIKE PULLS. WILL TRY IT A LAST RESORT. - Balance/Special Test Scores Oswestry Low Back Score: 13 - Goals Goal 1:: DECREASE C/O BACK PAIN Goal Time Frame: 4-6 Weeks Goal 2:: IMPROVE LIFTING, STANDING, SOCIAL LIFE, TRAVEL, CARE GIVING OF AND HOMEMAKING FUNCTION/TOLERANCE Goal Time Frame: 4-6 Weeks Goal 3:: INSTRUCT IN PROPHYLAXIS Goal Time Frame: 4-6 Weeks - Anticipated Interventions Patient/Client Instruction: Educate patient on: Condition, Plan of Care, Risk Factors For the Purpose of:: To improve self management Therapeutic Exercise to Include: Strength training, Body mechanics, Postural training, Flexibilty training, Gait and locomotor training, Neuromotor development, In an aquatic setting, Dynamic Lumbar Stabilization For the Purpose of:: To decrease pain, To increase ROM, To improve muscle performance and motor function, To increase tolerance to activity/condition/position, To improve ability of physical actions for home/community/work/leisure, To improve gait and locomotor functions Thank you for the opportunity to evaluate your patient. For Medicare and Medicare HMO plans, please review the plan of care and approve it. It will need to be FAXED BACK to us at [phone] for Medicare purposes. For Medicare only, by signing this I certify the plan of care. Please let me know if there are questions or concerns regarding this plan of care. Physician Signature: Date:
--- NOTE | 2021-06-27 13:43 | HP.PTEVAL ---
Patient's Visit Information CARO DOMINGO is a 80 year old F referred to Physical Therapy by [facility] with a diagnosis of L1 COMPRESSION FX. Date of Evaluation: 05/28/21 Physical Therapist: Zee Hooks PT, Cert MDT - Visit Plan Frequency: 2-3x /Week Duration: 4-6 Weeks Plan: D/C TO INDEP EX. PATIENT AGREEABLE. - Subjective Work/Leisure: RETIRED. Present symptoms: PAIN IN ABDOMINAL AREA, LOW BACK AND BACK SPASMS. PATIENT DENIES SANDEEP UE AND LE SX'S. Present since: JAN 23 2021. Pain Scale: WORST 8/10, LEAST 3/10. Currently: 5/10. Commenced as a result of: TRYING TO HELP OUT OF A CHAIR WHEN HE GOT HOME FROM THE HOSPITAL AFTER HAVING A STROKE. Symptoms at onset: PAIN IN BACK. STOMACH PAIN STARTED LATER - 2 WKS LATER. Worse: WHEN I HAVE TO USE MY CORE STRENGTH, PULLING HUSBANDS SOCKS ON. GETTING HIM DRESSED IS THE WORST OF THE DAY. TOO MUCH BENDING, LIFTING. Better: LYING DOWN. Disturbed sleep: NO. Previous history/Previous treatment: PATIENT REPORTS SHE HAS HURT HER BACK BEFORE BUT NO SERIOUS BACK PAIN IN THE PAST. NO BACK SURGERY. NO LUCERO'S. Treatment this episode: PATIENT REPORTS MADIHA SANTOS TRIED TO DO SOME CHIROPRACTIC TREATMENTS ON HER BACK BUT IT HURT SO BAD SHE SCREAMED AND REPORTS IT CAUSED EXCRUTIATING PAIN (STATES SHE WENT TO TWO WELL CLINICS BEFORE THAT AND TRIED PREDNISONE AND OTHER MEDICINE BUT IT DIDN'T HELP) HE THEN PRESCRIBED TRAMDOL, TYLONOL ARTHRIS AND IBUPROFEN. SHE REPORTS RELIEF WITH THE MEDICINE. SHE REPORTS SHE REQUESTED PT. ALSO REPORTS SEEING DR. ESPOSITO WHEN MADIHA HOUSEON WAS NOT AVAILABLE. REPORTS SHE HAS BEEN TO THE ED FOR PAIN TWICE TOO IN FEBRUARY. PATIENT REPORTS HER PAIN IS BECOMING MORE MANAGEABLE AND SHE THINKS SHE IS STARTING TO HEEL BUT SHE IS STILL STOOPED OVER AND SHE WANTS THERAPY SO SHE CAN STAND UP STRAIGHTER AGAIN. Coughing/sneezing/straining: NEGATIVE. Gait: STOOPED OVER NOW BUT WASN'T BEFORE. NO FALLS. NO ASSISTIVE DEVICES. CAN SHOP [employer]. Difficulty initiating urination: NO. NO LOSS OF BOWEL CONTROL. Accidents: UNREMARKABLE. Unexplained weight loss: NONE RECENT BUT HAS LOST ABOUT 20 LBS SINCE HER HAD A STROKE AND SHE REPORTS MADIHA SANTOS IS AWARE. Imaging: REPORTS LUMBAR [facility]RAYS AT [facility]. PMH/Recent major surgery: OSTEOPOROSIS, HIGH CHOLESTEROL, HTN, THYROID DZ. OTHER: HAD RECENT STROKE AND DAUGHTER CAN HELP NEEDED. LIVES IN ONE STORY HOME. PATIENT HAS TO GIVE MINIMAL ASSIST WITH CAR TRANSFERS. IS ABLE TO DO CHAIR TRANSFERS INDEP'LY NOW AND HE WALKS WITH A [employer]HA WALKER AROUND THE HOUSE NOW. PATIENT HELPS GET DRESSED. - Pain ABDOMINAL Pain Intensity (Out of 10): 0 LOWER THORACIC Pain Intensity (Out of 10): 0 - Objective Sitting/Standing Posture: INCREASED KYPHOSIS. DECREASED LORDOSIS. NO RELEVENT LATERAL SHIFT. Active Correction of posture: WORSE. Other Observations: INDEP GAIT AND TRANSFERS INTO PT. PATIENT PUSHED HER BACK TO OT IN A W/C BEFORE HER PT MARY'T. Motor deficit: SANDEEP UE'S AND LE'S GROSSLY 4/5 WITH MMT'ING EXCEPT HIPS AND SHLD'S GROSSLY 4-/5. PATIENT DENIES INCREASED PAIN WITH TESTING. Sensory deficit: SANDEEP UE AND LE LIGHT TOUCH SENSATION IS GROSSLY INTACT AND SYMMETRICAL. ROM deficit: SANDEEP UE'S AND LE'S WFL. Dural Signs: NEGATIVE SANDEEP LE'S. Lumbar mvmt loss: flex - MIN. ext - BEBE. R SG - BEBE. L SG - BEBE. PATIENT C/O INCREASED BACK PAIN AT THE END OF THE AVAILABLE ROM INTO FLEXION. Core strength: POOR. Palpation: NO ACUTE SPINE TENDERNESS. TREATMENT: NEUROMUSCULAR REEDUCATION - RETRAINING OF MVMT AND POSTURE FOR SITTING, LYING AND STANDING ACTIVITIES. OTHER: PATIENT DOES NOT WANT TO DO AQUATIC THERAPY BECAUSE SHE DOES NOT LIKE PULLS. WILL TRY IT A LAST RESORT. - Balance/Special Test Scores Oswestry Low Back Score: 6 TUG Test Time Seconds: 9.94 30 Second Chair Rise Test Seconds: 10 - Goals Goal 1:: DECREASE C/O BACK PAIN Goal Time Frame: 4-6 Weeks Goal 2:: IMPROVE LIFTING, STANDING, SOCIAL LIFE, TRAVEL, CARE GIVING OF AND HOMEMAKING FUNCTION/TOLERANCE Goal Time Frame: 4-6 Weeks Goal 3:: INSTRUCT IN PROPHYLAXIS Goal Time Frame: 4-6 Weeks - Anticipated Interventions Patient/Client Instruction: Educate patient on: Condition, Plan of Care, Risk Factors For the Purpose of:: To improve self management Therapeutic Exercise to Include: Strength training, Body mechanics, Postural training, Flexibilty training, Gait and locomotor training, Neuromotor development, In an aquatic setting, Dynamic Lumbar Stabilization For the Purpose of:: To decrease pain, To increase ROM, To improve muscle performance and motor function, To increase tolerance to activity/condition/position, To improve ability of physical actions for home/community/work/leisure, To improve gait and locomotor functions Thank you for the opportunity to evaluate your patient. For Medicare and Medicare HMO plans, please review the plan of care and approve it. It will need to be FAXED BACK to us at [phone] for Medicare purposes. For Medicare only, by signing this I certify the plan of care. Please let me know if there are questions or concerns regarding this plan of care. Physician Signature: Date:
== END 2021-06-27 19:00 | disposition home or self-care (01) ==
LOC: PT 13:30
PROVIDERS: PCP Physician Assistant; Referring Provider Physician Assistant; Visit Provider Physician Assistant
DX: S32.010D Wedge compression fracture of first lumbar vertebra, subsequent encounter for fracture with routine healing (principal)
CPT/HCPCS: 97110; 97112; 97162; 97164; 97530

== ENCOUNTER 2022-04-24 17:04 | Outpatient (CLI) | payer MEDICARE, SELFPAY ==
[2022-04-24 17:48] LABS: Erythrocyte Sedimentation Rate 6 mm/hr (0-30)
[2022-04-24 18:10] LABS: CRP < 2.90 mg/L (0.0-3.0); LDH 213 U/L (84-246)
[2022-04-28 15:07] LABS: Endomysial Antibody IgA Negative (Negative)
[2022-04-28 19:21] LABS: Immunoglobulin A 194 mg/dL (64-422); t-Transglutaminase IgA <2 U/mL (0-3)
[2022-05-02 07:08] LABS: Anti-Centromere B Ab <0.2 AI (0.0-0.9); Anti-Chromatin 0.5 AI (0.0-0.9); Anti-Jo <0.2 AI (0.0-0.9); Anti-Scleroderma-70 AB <0.2 AI (0.0-0.9); Beef <0.10 kU/L (Class 0); Clam <0.10 kU/L (Class 0); Codfish <0.10 kU/L (Class 0); Corn <0.10 kU/L (Class 0); Egg, White <0.10 kU/L (Class 0); Egg, Whole <0.10 kU/L (Class 0); Milk (Cow) <0.10 kU/L (Class 0); Peanut <0.10 kU/L (Class 0); Pork <0.10 kU/L (Class 0); RNP Ab 0.2 AI (0.0-0.9); SCALLOP <0.10 kU/L (Class 0); SESAME SEED <0.10 kU/L (Class 0); SJOGREN'S Anti-SS-A test < 0.2 AI (0.0-0.9); SJOGREN'S Anti-SS-B test < 0.2 AI (0.0-0.9); Shrimp <0.10 kU/L (Class 0); Smith Ab 0.2 AI (0.0-0.9); Soybean <0.10 kU/L (Class 0); Walnut, (Food) <0.10 kU/L (Class 0); Wheat <0.10 kU/L (Class 0)
[2022-05-02 19:51] LABS: Anti-dsDNA Ab 1 IU/mL (0-9); Chocolate <0.10 kU/L (Class 0)
[2022-05-02 22:06] LABS: Alpha-1-Globulins 0.3 g/dL (0.0-0.4); Alpha-2-Globulins 0.8 g/dL (0.4-1.0); Cytoplasmic Ab (C-ANCA) <1:20 titer (Neg:<1:20); Gamma Globulin 1.4 g/dL (0.4-1.8); Immunoglobulin A 195 mg/dL (64-422); Immunoglobulin G 1421 mg/dL (586-1602); Immunoglobulin M 33 mg/dL (26-217); PROEL- TOTAL PROTEIN 7.5 g/dL (6.0-8.5)
[2022-05-02 22:07] LABS: Immunoglobulin E 30 IU/mL (6-495); Perinuclear Ab (P-ANCA) <1:20 titer (Neg:<1:20)
== END 2022-04-24 23:59 | disposition home or self-care (01) ==
LOC: LAB 17:05
PROVIDERS: PCP Physician Assistant; Visit Provider Internal Medicine Gastroenterology
DX: T78.40XA Allergy, unspecified, initial encounter (principal); R10.9 Unspecified abdominal pain; R19.7 Diarrhea, unspecified; X58.XXXA Exposure to other specified factors, initial encounter
CPT/HCPCS: 36415; 82784; 82785; 83516; 83615; 84165; 84443; 85652; 86003; 86005; 86140; 86225; 86235; 86255; 86256; 86334

== ENCOUNTER → 2022-05-12 | Outpatient (CLI) | payer MEDICARE, SELFPAY | END | disposition home or self-care (01) | PROVIDERS: PCP Physician Assistant; Referring Provider Internal Medicine Gastroenterology; Visit Provider Internal Medicine Gastroenterology | DX: R10.9 Unspecified abdominal pain (principal) | CPT/HCPCS: 36415 ==

== ENCOUNTER → 2022-05-14 | Outpatient (CLI) | payer MEDICARE, SELFPAY ==
[2022-05-21 08:15] LABS: Pancreatic Elastase, Fecal 104 (>200)
[2022-06-02 14:30] LABS: Calprotectin, Stool 22 ug/g (0-120); Fats, Neutral Normal (.); Fats, Total Normal (.)
== END | disposition home or self-care (01) ==
LOC: LABSPEC 14:19
PROVIDERS: PCP Physician Assistant; Referring Provider Internal Medicine Gastroenterology; Visit Provider Internal Medicine Gastroenterology
DX: R19.7 Diarrhea, unspecified (principal); R10.9 Unspecified abdominal pain; K58.9 Irritable bowel syndrome, unspecified
CPT/HCPCS: 82274; 82653; 82705; 83630; 83993; 87177; 87209; 87329; 87493; 87506

== ENCOUNTER → 2023-08-24 | Outpatient (CLI) | payer MEDICARE, SELFPAY ==
--- NOTE | 2023-08-24 07:58 | MRI_ITS ---
STUDY: MRI BRAIN WITH AND WITHOUT CONTRAST REASON FOR EXAM: Female, 82 years old. BITEMPERAL VISUAL FIELD DEFECT TECHNIQUE: Standardized multiplanar fat and water weighted pulse sequences were obtained. IV 10ML CLARISCAN was administered for the contrast portion of the examination. COMPARISON: CT of the brain February 15, 2021. FINDINGS: Mild atrophy and moderate periventricular white matter ischemic changes without mass affect or restricted diffusion. . Tiny old lacunar infarcts in the right basal ganglia. Normal thalami. There is no extra-axial fluid accumulation. Normal flow voids within the major intracranial circulation suggesting patency by spin echo criteria. Normal venous enhancement. There is no enhancing intra-axial or extra-axial abnormality. Pituitary gland is normal in size and there is no enhancing nodule. However, there is marked asymmetric tortuosity of the left cavernous carotid which produces mass effect upon the pituitary,. Normal infundibular stalk, optic chiasm and hypothalamus. Normal tectal plate and pineal gland. Normal midbrain, bhumika and medulla. Normal cerebellum. Normal basal cisterns. Normal bilateral temporal bones. Normal bilateral internal auditory canals. Postsurgical changes of the orbits. Normal visualized paranasal sinuses. Normal calvarium and skull base. Normal visualized soft tissue structures. Normal visualized upper cervical spine. MRI/Brain W/WO Contrast IMPRESSION: Mild atrophy and moderate periventricular white matter ischemic change without evidence for acute infarct.. Tiny old right lacunar infarcts. Incidental finding of a tortuous left cavernous carotid impinging upon the pituitary of uncertain clinical significance Electronically Signed: Juan Pedro MD at 18:39 EDT ,
[2023-08-24 08:49] LABS: CREATININE FINGERSTICK 1.1 mg/dL (0.55-1.02)
== END | disposition home or self-care (01) ==
LOC: MRI 07:44
PROVIDERS: PCP Physician Assistant; Referring Provider Ophthalmology; Visit Provider Ophthalmology
DX: H54.7 Unspecified visual loss (principal)
CPT/HCPCS: 70553; A9575

== ENCOUNTER → 2024-08-26 | Outpatient (CLI) | payer MEDICARE, SELFPAY ==
[2024-08-26 10:14] LABS: Hematocrit 35.4 % (37-47); Hemoglobin 11.9 g/dL (12.0-15.0); Mean Corp Hgb Conc 33.6 g/dL (32-36); Mean Corpuscular Hgb 30.4 pg (27.0-32.0); Mean Corpuscular Volume 90.5 fL (81-99); Mean Platelet Vol. 11.2 fl (6.2-12.0); Platelet Count 205 K/mm3 (150-450); RBC Distribution Width CV 13.4 % (11.6-14.6); RBC Distribution Width SD 44.2 fl (35.1-43.9); Red Blood Count 3.91 M/mm3 (4.2-5.4); White Blood Count 5.4 K/mm3 (4.4-11.0)
[2024-08-26 10:15] LABS: Erythrocyte Sedimentation Rate 6 mm/hr (0-30)
[2024-08-26 11:19] LABS: ALB/GLOB Ratio 1.4 RATIO (0.9-2.4); AST(SGOT) 30 U/L (<=31); Alanine Aminotransfer ALT/SGPT 20 U/L (<=34); Albumin, Serum 4.4 g/dL (3.4-4.8); Alkaline Phosphatase 65 U/L (35-104); Anion Gap 11 (5-15); BUN 23 mg/dL (4-19); BUN/Creat Ratio 14.7 RATIO (10-20); Calcium,Total 9.9 mg/dL (7.6-11.0); Carbon Dioxide 25.3 mmol/L (21.0-32.0); Chloride 104 mmol/L (98-108); Cholesterol 236 mg/dL (<=200); Creatinine, Serum 1.59 mg/dL (0.70-1.20); EST Glomerular Filtration Rate 32 (>60); Globulin 3.1 g/dL (2.2-4.2); Glucose 89 mg/dL (70-99); High Density Lipoprotein 84 mg/dL; Low Density Lipoprotein Calc. 138 mg/dL; Potassium 4.2 mmol/L (3.3-5.1); Protein, Total 7.5 g/dL (5.9-8.4); Sodium Level 140 mmol/L (133-145); Thyroid Stim Hormone (TSH) 0.529 uIU/mL (0.300-4.200); Total Bilirubin 0.38 mg/dL (0.00-1.30); Triglycerides 68 mg/dL; Very Low Density Lipoprotein 14 mg/dL (5-40); Vitamin B12 553 pg/mL (180-914); cholesterol:hdl ratio screen 2.81
[2024-08-29 13:08] LABS: Vitamin D 1,25-Dihydroxy 26.8 pg/mL (24.8-81.5)
[2024-08-30 23:07] LABS: Folate, RBC (Hct) Test 38.2 % (34.0-46.6); Folates, RBC Test 1440 ng/mL (>498); Vitamin B1, Thiamine 159.4 nmol/L (66.5-200.0)
== END | disposition home or self-care (01) ==
PROVIDERS: PCP Clinical Nurse Specialist Adult Health; Referring Provider Psychiatry & Neurology Neurology; Visit Provider Psychiatry & Neurology Neurology
DX: G45.3 Amaurosis fugax (principal); I67.9 Cerebrovascular disease, unspecified; E03.9 Hypothyroidism, unspecified; E78.5 Hyperlipidemia, unspecified
CPT/HCPCS: 36415; 80053; 80061; 82607; 82652; 82747; 84425; 84439; 84443; 85014; 85027; 85652

== ENCOUNTER → 2024-08-30 | Outpatient (CLI) | payer MEDICARE, SELFPAY ==
--- NOTE | 2024-08-30 13:05 | EKG12_ITS ---
Test Reason : PREOP Blood Pressure : */* mmHG Vent. Rate : 68 BPM Atrial Rate : 68 BPM P-R Int : 180 ms QRS Dur : 100 ms QT Int : 404 ms P-R-T Axes : 58 44 45 degrees QTcB Int : 429 ms Normal sinus rhythm Septal infarct , age undetermined Abnormal ECG Confirmed by SIDNEY AVALOS, KRIS ([id number]), manuscript editor SHAQUILLE RAZO ([id number]) on 08/31/2024 11:02:00 AM Referred By: Gustavo Yu Confirmed By: KRIS LITTLE MD
== END | disposition home or self-care (01) ==
LOC: PSN 13:00
PROVIDERS: PCP Clinical Nurse Specialist Adult Health; Referring Provider Psychiatry & Neurology Neurology; Visit Provider Psychiatry & Neurology Neurology
DX: G45.3 Amaurosis fugax (principal); I10 Essential (primary) hypertension
CPT/HCPCS: 93005

== ENCOUNTER → 2024-09-07 | Outpatient (CLI) | payer MEDICARE, SELFPAY ==
--- NOTE | 2024-09-07 13:33 | CDU_ITS ---
Reason For Study Reason For Study: Left amaurosis fugax Rt. Velocities/BP Lt. Velocities/BP Prox CCA 52.2/11.6 cm/sec. Prox CCA 59.3/12.6 cm/sec. Mid CCA 64.5/11.6 cm/sec. Mid CCA 74.0/16.3 cm/sec. Dist CCA 55.1/10.7 cm/sec. Dist CCA 63.0/15.1 cm/sec. Prox ICA 52.5/11.0 cm/sec. Prox ICA 66.3/16.8 cm/sec. Mid ICA 73.3/14.7 cm/sec. Mid ICA 81.7/20.1 cm/sec. Dist ICA 54.4/12.6 cm/sec. Dist ICA 109.7/26.2 cm/sec. Rt. ICA/CCA = 1.1. Lt. ICA/CCA = 1.5. Prox ECA 43.1/0.0 cm/sec. Prox ECA 55.3/0.0 cm/sec. Rt. Vert. 54.4/13.9 cm/sec. Lt. Vert. 52.0/10.2 cm/sec. Right Extracranial There is intimal thickening but no significant atherosclerotic plaque noted in the right common carotid artery. There is heterogeneous, irregular atherosclerotic plaque noted in the right internal carotid artery. There is intimal thickening but no significant atherosclerotic plaque noted in the right external carotid artery. Antegrade flow is noted in the right vertebral artery. Left Extracranial There is intimal thickening but no significant atherosclerotic plaque noted in the left common carotid artery. There is heterogeneous, irregular atherosclerotic plaque noted in the left internal carotid artery. There is heterogeneous, irregular atherosclerotic plaque noted in the left external carotid artery. Antegrade flow is noted in the left vertebral artery. Procedure Carotid Duplex [id number]. This is a Carotid Duplex examination using B-mode, color flow and specral Doppler. Exam performed in department. VL/Carotid Duplex Ultrasound Interpretation Summary Mild (<50%) stenosis right extracranial internal carotid. Mild (<50%) stenosis left extracranial internal carotid. Patent and antegrade vertebrals bilaterally. Ordering Physician: Gustavo Yu Referring Physician: Princess Hernandez CNS Performed By: Harleen Gold RVT
== END | disposition home or self-care (01) ==
LOC: CVS 13:33
PROVIDERS: PCP Clinical Nurse Specialist Adult Health; Referring Provider Psychiatry & Neurology Neurology; Visit Provider Psychiatry & Neurology Neurology
DX: G45.3 Amaurosis fugax (principal)
CPT/HCPCS: 93880

== ENCOUNTER → 2024-09-08 | Outpatient (CLI) | payer MEDICARE, SELFPAY | END | disposition home or self-care (01) | PROVIDERS: PCP Clinical Nurse Specialist Adult Health; Referring Provider Psychiatry & Neurology Neurology; Visit Provider Psychiatry & Neurology Neurology | DX: G45.3 Amaurosis fugax (principal); I77.1 Stricture of artery | CPT/HCPCS: 70544; 70551 ==

== ENCOUNTER → 2024-10-27 | Outpatient (CLI) | payer MEDICARE, SELFPAY ==
[2024-11-02 13:28] LABS: SJOGREN'S Anti-SS-A test 0.3 AI (0.0-0.9); SJOGREN'S Anti-SS-B test < 0.2 AI (0.0-0.9)
== END | disposition home or self-care (01) ==
LOC: MTLAB 15:02
PROVIDERS: PCP Clinical Nurse Specialist Adult Health; Referring Provider Psychiatry & Neurology Neurology; Visit Provider Psychiatry & Neurology Neurology
DX: H04.123 Dry eye syndrome of bilateral lacrimal glands (principal)
CPT/HCPCS: 36415; 86235

== ENCOUNTER → 2025-01-10 | Outpatient (CLI) | payer MEDICARE, SELFPAY ==
--- NOTE | 2025-01-10 12:08 | CT_ITS ---
PROCEDURE: CT/Abdomen/Pel W ORAL Cont Only
== END | disposition home or self-care (01) ==
LOC: CT 12:06
PROVIDERS: PCP Clinical Nurse Specialist Adult Health; Referring Provider Registered Nurse; Visit Provider Registered Nurse
DX: R19.7 Diarrhea, unspecified (principal)
CPT/HCPCS: 74176